=== PATIENT | female | born 1960 | race Caucasian/White ===

== ENCOUNTER 2016-05-17 14:48 | Emergency (ER) | payer OTHER ==
[~2016-05-17] VITALS: Ht 157.5 cm; Wt 59.1 kg
[~2016-05-17 14:48] MED LIST: ALBU8.5H3 INH; BENA20TA48 PO; CARI350T29 PO; TEMA30CA PO; TRAM50TA2 PO
[2016-05-17 14:58] VITALS: Ht 157.5 cm; Wt 59.1 kg
[2016-05-17] MEDS ORDERED: ONDANSETRON (ODT) 4 MG TAB ODT STA (15:19)
[2016-05-17] MEDS ORDERED: DIPHENHYDRAMINE 50 MG INJ IM ONE ×2 (15:30→16:30)
[2016-05-17] MEDS ORDERED: morphine 10 MG INJ IM ONE ×2 (15:30→16:30)
--- NOTE | 2016-05-17 16:17 | RADRPT ---
PROCEDURE: CT brain without contrast CLINICAL INDICATION: Headache, neck pain, stiffness TECHNIQUE: CT of the brain without contrast performed on a multidetector CT scanner, with multiplan ar reformats. One or more of the following dose reduction techniques were used: Automated exposure control, adjustment in mA and / or kV according to patient size, use of iterative reconstructive samuel hnique. CTDIvol = 45 mGy; DLP = 720.2 mGy-cm. COMPARISON: CT brain 03/02/2016 FINDINGS: There is now a small focal area of hypodensity in the inferior medial aspect of the left cerebellar hemisphere. This is suspicious for an acute - recent infarct. No acute intracranial hemorrhage is identified. No extra-axial fluid collection is seen. There is no mass effect. No midline shift is identified. Ventricles and sulci are mildly enlarged compatible with generalized volume loss. There are mild areas of hypodensity in the periventricular - deep white matter which are nonspecific but suggestive of chronic small vessel ischemic changes. Saravia-white differentiation is otherwise p reserved. Atherosclerotic calcifications of the proximal intracranial arteries are noted. Partial visualization is upper cervical posterior fusion hardware with lucency around the left C1 sc rew and lucency of the adjacent occipital calvarium bilaterally. Findings are not significantly neal nged. Mastoids and imaged paranasal sinuses are grossly clear. Focal dehiscence of the left lamina papyracea is seen. IMPRESSION: 1. Interval small focal hypodensity in the left cerebellar hemisphere, suspicious for acute/recent infarct. 2. No intracranial hemorrhage identified. 3. Mild generalized volume loss, with mild chronic small vessel ischemic changes. 4. Partially visualized upper posterior cervical fusion hardware with associated lucencies describe d above, not significantly changed. RPTAT: VV .Nilo Galloway MD, MD Date Time Electronically viewed and signed by .Nilo Galloway MD, MD on 05/17/2016 16:16 .O/
[2016-05-17] MEDS ORDERED: SOD CHLORIDE 0.9% 1,000 ML IV STA (16:42)
--- NOTE | 2016-05-17 17:21 | RADRPT ---
PROCEDURE: Chest Radiograph. CLINICAL INDICATION: Stroke TECHNIQUE: Single frontal chest radiograph. COMPARISON: Chest radiograph 10/04/2014 FINDINGS: The cardiomediastinal silhouette is within normal limits. No infiltrate or effusion is seen. Ce rvical spinal hardware is partially visualized. The bones are otherwise intact. IMPRESSION: 1. No evidence of acute cardiopulmonary disease RPTAT: HJBF .Alex Reeves MD, MD Date Time Electronically viewed and signed by .Alex Reeves MD, on 05/17/2016 17:21 .B/
[2016-05-17 17:27] LABS: BASOPHIL # 0.1 10^3/ul (0.0-0.1); BASOPHILS % 0.8 % (0.0-2.0); EOSINOPHILS # 0.2 10^3/ul (0.0-0.5); HEMATOCRIT 42.3 % (37.0-47.0); LYMPHOCYTES # 3.1 10^3/ul (0.8-2.9); LYMPHOCYTES % 32.5 % (15.0-51.0); MEAN CORPUSCULAR HEMOGLOBIN 29.5 pg (29.0-33.0); MEAN CORPUSCULAR HGB CONC 33.1 g/dl (32.0-37.0); MEAN CORPUSCULAR VOLUME 89.1 fl (82.0-101.0); MEAN PLATELET VOLUME 8.1 fl (7.4-10.4); MONOCYTE # 0.4 10^3/ul (0.3-0.9); MONOCYTES % 4.1 % (0.0-11.0); NEUTROPHIL # 5.8 10^3/ul (1.6-7.5); NEUTROPHILS % 60.6 % (39.0-77.0); PLATELET COUNT 280 10^3/UL (140-440); RED BLOOD COUNT 4.75 10^6/ul (4.20-5.40); RED CELL DISTRIBUTION WIDTH 15.6 % (11.5-14.5); UNCORRECTED WBC 9.6 10^3/ul (4.8-10.8); WHITE BLOOD COUNT 9.6 10^3/ul (4.8-10.8)
[2016-05-17 17:29] LABS: CONDITION 1; LH ANALYZER COMMENTS 1
[2016-05-17 17:44] LABS: CHLORIDE 102 mmol/L (97-110); SODIUM 144 mmol/L (135-144)
--- NOTE | 2016-05-17 17:44 | ERA ---
ER Documentation Chief Complaint Date/Time DATE: 05/17/16 TIME: 17:37 Chief Complaint headach and dizzy spellls x 1 wk HPI This is a 56-year-old female who states that been having some headaches off and on for the past week or yesterday she states she had a occipital headache described as throbbing with phonophobia and worse with position change. She says that she has been having some off and on spells of some strong vertigo is worse with movement of her head over the past 2 days as well. She said her right cheek feels a little tingly for the past 2 days as well. No weakness in her arms or legs and difficulty speaking or swallowing. Patient says she has had a prior stroke and is on blood thinners Plavix no chest pain shortness of breath no vomiting ROS All systems reviewed and are negative except as per history of present illness. Medications Home Meds Active Scripts Tramadol HCl (Tramadol HCl) 50 Mg Tablet, 50 MG PO Q6, #20 TAB Prov:SANYA MILLER DO 04/07/16 Reported Medications Albuterol Sulfate* (Proair HFA*) 8.5 Gm Hfa.aer.ad, 2 PUFF INH Q4H Y for WHEEZING AND SOB, #1 INHALER 03/02/16 Benazepril Hcl* (Benazepril Hcl*) 20 Mg Tablet, 20 MG PO DAILY, #30 TAB 03/02/16 Carisoprodol* (Carisoprodol*) 350 Mg Tablet, 350 MG PO Q8 Y for MUSCLE SPASMS, TAB 03/02/16 Temazepam* (Temazepam*) 30 Mg Capsule, 30 MG PO HS Y for INSOMNIA, CAP 03/02/16 Allergies Allergies: Coded Allergies: sulfamethoxazole (Verified Allergy, Intermediate, HIVES, 04/03/16) trimethoprim (Verified Allergy, Intermediate, HIVES, 04/03/16) hydromorphone HCl (Verified Allergy, Mild, 04/03/16) acetaminophen (Verified Allergy, Unknown, 04/03/16) amoxicillin (Verified Allergy, Unknown, 04/03/16) clavulanic acid (Verified Allergy, Unknown, 04/03/16) diphenhydramine (Verified Allergy, Unknown, 04/03/16) hydrocodone (Verified Allergy, Unknown, 04/03/16) ketorolac (Verified Allergy, Unknown, 04/03/16) PMhx/Soc History of Surgery: Yes (back, surgery , hysterctomy 99, left below the knee amputation.) Anesthesia Reaction: No (denies) Hx Neurological Disorder: Yes (CVA) Hx Respiratory Disorders: Yes (EMPHYSEMA/COPD) Hx Cardiac Disorders: Yes (HTN) Hx Psychiatric Problems: No Hx Miscellaneous Medical Probl: Yes (chronic back pain) Hx Alcohol Use: No Hx Substance Use: No Hx Tobacco Use: Yes (1 a day) Smoking Status: Current every day smoker FmHx Family History: No coronary disease Physical Exam Vitals Vital Signs Date Time Temp Pulse Resp B/P Pulse Ox O2 Delivery O2 Flow Rate FiO2 05/17/16 14:58 98.0 88 18 141/86 100 Physical Exam Const: Well-developed, well-nourished Head: Atraumatic, normocephalic Eyes: Normal Conjunctiva, PERRLA, EOMI, normal sclera, no nystagmus ENT: Normal External Ears, Nose and Mouth, moist mucus membranes. Neck: Full range of motion. No meningismus, no lymphadenopathy. Resp: Clear to auscultation bilaterally, no wheezing, rhonchi, rales Cardio: Regular rate and rhythm, no murmurs, S1 S2 present Abd: Soft, non tender x 4, non distended. Normal bowel sounds, no guarding or rebound, no pulsitile abdominal masses or bruits Skin: No petechiae or rashes, no ecchymosis , no maculopapular rash Back: No midline or flank tenderness Ext: No cyanosis, or edema, FROM x 4, normal inspection, neurovascularly intact x 4 Neur: Awake and alert, STR 5/5 x 4, sensation intact x 4, no focal findings, cerebellum intact Psych: Normal Mood and Affect Result Diagram: 05/17/16 1700 Results 24 hrs Laboratory Tests Test 05/17/16 17:00 Basophils # 0.110^3/ul Basophils % 0.8% Blood Morphology Comment Eosinophils # 0.210^3/ul Eosinophils % 2.0% Hematocrit 42.3% Hemoglobin 14.0g/dl Lymphocytes # 3.110^3/ul Lymphocytes % 32.5% Mean Corpuscular Hemoglobin 29.5pg Mean Corpuscular Hemoglobin Concent 33.1g/dl Mean Corpuscular Volume 89.1fl Mean Platelet Volume 8.1fl Monocytes # 0.410^3/ul Monocytes % 4.1% Neutrophils # 5.810^3/ul Neutrophils % 60.6% Nucleated Red Blood Cells # 0.010^3/ul Nucleated Red Blood Cells % 0.0/100WBC Platelet Count 16462^3/UL Red Blood Count 4.7510^6/ul Red Cell Distribution Width 15.6% White Blood Count 9.610^3/ul Current Medications Medications (Trade) Dose Ordered Sig/Migel Route PRN Reason Start Time Stop Time Status Last Admin Dose Admin Diphenhydramine HCl (Benadryl) 25 mg ONCE ONCE IM 05/17/16 15:30 05/17/16 15:31 DC 05/17/16 15:27 Morphine Sulfate (morphine) 6 mg ONCE ONCE IM 05/17/16 15:30 05/17/16 15:31 DC 05/17/16 15:29 Ondansetron HCl (Zofran Odt) 4 mg ONCE STAT ODT 05/17/16 15:19 05/17/16 15:22 DC 05/17/16 15:29 Morphine Sulfate (morphine) 6 mg ONCE ONCE IM 05/17/16 16:30 05/17/16 16:31 DC 05/17/16 16:31 Diphenhydramine HCl 25 mg 25 mg ONCE ONCE IM 05/17/16 16:30 05/17/16 16:31 DC 05/17/16 16:31 Sodium Chloride (NS) 1,000 ml @ 1,000 mls/hr Q1H STAT IV 05/17/16 16:42 05/17/16 17:41 Procedures/MDM PROCEDURE: CT brain without contrast CLINICAL INDICATION: Headache, neck pain, stiffness TECHNIQUE: CT of the brain without contrast performed on a multidetector CT scanner, with multiplanar reformats. One or more of the following dose reduction techniques were used: Automated exposure control, adjustment in mA and / or kV according to patient size, use of iterative reconstructive technique. CTDIvol = 45 mGy; DLP = 720.2 mGy-cm. COMPARISON: CT brain 03/02/2016 FINDINGS: There is now a small focal area of hypodensity in the inferior medial aspect of the left cerebellar hemisphere. This is suspicious for an acute - recent infarct. No acute intracranial hemorrhage is identified. No extra-axial fluid collection is seen. There is no mass effect. No midline shift is identified. Ventricles and sulci are mildly enlarged compatible with generalized volume loss. There are mild areas of hypodensity in the periventricular - deep white matter which are nonspecific but suggestive of chronic small vessel ischemic changes. Saravia-white differentiation is otherwise preserved. Atherosclerotic calcifications of the proximal intracranial arteries are noted. Partial visualization is upper cervical posterior fusion hardware with lucency around the left C1 screw and lucency of the adjacent occipital calvarium bilaterally. Findings are not significantly changed. Mastoids and imaged paranasal sinuses are grossly clear. Focal dehiscence of the left lamina papyracea is seen. IMPRESSION: 1. Interval small focal hypodensity in the left cerebellar hemisphere, suspicious for acute/recent infarct. 2. No intracranial hemorrhage identified. 3. Mild generalized volume loss, with mild chronic small vessel ischemic changes. 4. Partially visualized upper posterior cervical fusion hardware with associated lucencies described above, not significantly changed. RPTAT: VV .Nilo Galloway MD, Date Time Electronically viewed and signed by .Nilo Galloway MD, MD on 05/17/2016 16:16 .O/ CC: SANYA MILLER DO PROCEDURE: Chest Radiograph. CLINICAL INDICATION: Stroke TECHNIQUE: Single frontal chest radiograph. COMPARISON: Chest radiograph 10/04/2014 FINDINGS: The cardiomediastinal silhouette is within normal limits. No infiltrate or effusion is seen. Cervical spinal hardware is partially visualized. The bones are otherwise intact. IMPRESSION: 1. No evidence of acute cardiopulmonary disease RPTAT: HJBF .Alex Reeves MD, Date Time Electronically viewed and signed by .Alex Reeves MD, on 2016 17:21 .B/ CC: SANYA MILLER DO The patient's CAT scan shows a subacute/acute stroke. She is not a TPA candidate due to the onset of symptoms was in the minimum 2 days ago. She also has no real symptomatology other than a mild headache and some vertigo. However she will need to be admitted to the hospital for medication management and MRI Patient's neurologic symptoms are concerning for acute TIA/stroke, infectious, or metabolic cause and will require inpatient workup and continuous monitoring. Further w/u for will be deferred to the inpatient team. Neuro Critical Care: Critical Care Time: 30 minutes Treatments/Evaluations: Continuous neurologic and cardiovascular monitoring for deterioration of neurologic function and complications, while obtaining immediate neurologic imaging. Considerations made for TPA and invasive therapy with discussions with family. TPA Criteria Assessment: Patient is not a TPA candidate because: Onset at least 2 days ago Last known normal > 3 hours Time Onset Unkown Minimal or rapidly improving symptoms Bleeding Diathesis Ct shows > 1/[address] shows ICH BP >185/110 even with treatment Aggressive BP therapy required i.e. Nicardipine gtt Hyper or Hypoglycemia < 50 or > 400 mg/dl Seizure at onset Stroke or Head injury < 3 months LP < 24 hours Major Surgery < 14 days Brain Tumor, AVM, Aneurysm GI/ bleed < 21 days Arterial Puncture < 7 days Caution NIHSS > 22 For Symptoms 3-4.5 hrs Age > 80 NIHSS > 25 Any Anticoagulant Use History of CVA and DM Accepting Care Team: Current data and ongoing care discussed. Time: Time of admission Primary Provider: Panel Consulting: TONI Outstanding Data: none EKG: Rate/Rhythm: Sinus tachycardia heart rate 101 QRS, ST, QT: NORMAL [place], QRS, QT] Impression: NORMAL EKG Departure Diagnosis: Primary Impression: CVA (cerebral vascular accident) Qualified Code: I63.9 - Cerebrovascular accident (CVA), unspecified mechanism Condition: Stable SANYA MILLER DO May 17, 2016 17:44
[2016-05-17 17:45] LABS: POTASSIUM 5.2 mmol/L (3.5-5.1)
[2016-05-17 17:47] LABS: ANION GAP 20 (8-16); CARBON DIOXIDE 27 mmol/L (21-31); CREATININE 0.83 mg/dl (0.44-1.00)
[2016-05-17 17:48] LABS: BLOOD UREA NITROGEN 14 mg/dl (7-20); CALCIUM 9.9 mg/dl (8.4-10.2); GLUCOSE 100 mg/dl (70-220)
[2016-05-17 18:00] LABS: INR 0.94; PROTIME 12.6 Sec (12.2-14.2)
[2016-05-17 18:01] LABS: PARTIAL THROMBOPLASTIN TIME 31.1 Sec (25.0-35.0)
[2016-05-17] MEDS ORDERED: SOD CHLORIDE 0.9% 1,000 ML IV SCH (18:01)
[2016-05-17 18:05] LABS: TROPONIN-I < 0.010 ng/ml (0.00-0.12)
[2016-05-17] MEDS ORDERED: ONDANSETRON 4 MG INJ IV PRN (18:30)
[2016-05-17] MEDS ORDERED: DIAZEPAM 5 MG/ML SYG IV ONE (18:30)
[2016-05-17] MEDS ORDERED: ACETAMINOPHEN 325 MG TAB PO PRN (18:30)
[2016-05-17] MEDS ORDERED: LORAZEPAM 2 MG INJ IV ONE (20:00)
[2016-05-17] MEDS ORDERED: morphine 10 MG INJ IV ONE (20:30)
[2016-05-17 20:38] VITALS: BP 144/87; PULSE 62; RESP 16; TEMP 98
== END 2016-05-17 18:05 | disposition admitted as inpatient to this hospital (09) ==
LOC: E/R 14:48
DX: I63.9 Cerebral infarction, unspecified (principal)
CPT/HCPCS: 70450; 71010; 80048; 84484; 85025; 85610; 85730; 93005; 96372; J1200; J2060; J2270; J3360; J7030; Z7502; Z7610

== ENCOUNTER 2016-05-25 16:26 | Inpatient (IN) | payer OTHER ==
[~2016-05-25] VITALS: Ht 167.6 cm; Wt 59.1 kg
[~2016-05-25 16:26] MED LIST changes: -TRAM50TA2 PO; +ULT50 PO
[2016-05-25] MEDS ORDERED: SOD CHLORIDE 0.9% 1,000 ML IV STA (16:52)
--- NOTE | 2016-05-25 17:21 | RADRPT ---
PROCEDURE: XR Chest. CLINICAL INDICATION: Shortness of breath. TECHNIQUE: Single frontal view. COMPARISON: 05/17/2016. FINDINGS: There is bilateral interstitial pulmonary disease which may indicate pulmonary edema. The lungs are otherwise clear. The heart size is normal. There is no pleural effusion or pneumothorax. There has been prior cervical spine surgery with plate and multiple screws. IMPRESSION: 1. Bilateral interstitial disease which may indicate pulmonary edema. Clinical correlation advised . 2. Prior cervical spine surgery. 3. Otherwise normal chest radiograph. RPTAT: QQ .Raman Acevedo MD, MD Date Time Electronically viewed and signed by .Raman Acevedo MD, MD on 05/25/2016 17:21 .R/
[2016-05-25 17:22] LABS: BASOPHILS % 0.5 % (0.0-2.0); EOSINOPHILS # 0.2 10^3/ul (0.0-0.5); EOSINOPHILS % 3.2 % (0.0-7.0); HEMATOCRIT 38.6 % (37.0-47.0); HEMOGLOBIN 12.7 g/dl (12.0-16.0); LYMPHOCYTES % 49.1 % (15.0-51.0); MEAN CORPUSCULAR HEMOGLOBIN 29.1 pg (29.0-33.0); MEAN CORPUSCULAR HGB CONC 32.9 g/dl (32.0-37.0); MEAN CORPUSCULAR VOLUME 88.5 fl (82.0-101.0); MEAN PLATELET VOLUME 7.9 fl (7.4-10.4); MONOCYTE # 0.3 10^3/ul (0.3-0.9); NEUTROPHIL # 2.5 10^3/ul (1.6-7.5); NEUTROPHILS % 42.2 % (39.0-77.0); PLATELET COUNT 248 10^3/UL (140-440); RED BLOOD COUNT 4.37 10^6/ul (4.20-5.40); RED CELL DISTRIBUTION WIDTH 16.3 % (11.5-14.5)
[2016-05-25 17:24] LABS: CONDITION 1; LH ANALYZER COMMENTS 1
--- NOTE | 2016-05-25 17:26 | ERA ---
ER Documentation Chief Complaint Date/Time DATE: 05/25/16 TIME: 17:22 Chief Complaint headache and ringing in bilat ears [id number] HPI This is a 56-year-old female well-known to me seen by me on May 17 with a diagnosis of a new cerebellar infarct. Patient was transferred to an outside hospital where she says she left AGAINST MEDICAL ADVICE. She says over the past few days she is getting worse with worsening movement of the left arm and now the inability to swallow liquids and solids. She says she is feeling dizzy with vertigo off and on with chronic headaches. No nausea vomiting she says she is getting worse and is now unable to eat for the past few days. No chest pain or shortness of breath no fever abdominal pain vomiting or diarrhea ROS All systems reviewed and are negative except as per history of present illness. Medications Home Meds Active Scripts Tramadol HCl (Tramadol HCl) 50 Mg Tablet, 50 MG PO Q6, #20 TAB Prov:SANYA MILLER DO 04/07/16 Reported Medications Albuterol Sulfate* (Proair HFA*) 8.5 Gm Hfa.aer.ad, 2 PUFF INH Q4H Y for WHEEZING AND SOB, #1 INHALER 03/02/16 Benazepril Hcl* (Benazepril Hcl*) 20 Mg Tablet, 20 MG PO DAILY, #30 TAB 03/02/16 Carisoprodol* (Carisoprodol*) 350 Mg Tablet, 350 MG PO Q8 Y for MUSCLE SPASMS, TAB 03/02/16 Temazepam* (Temazepam*) 30 Mg Capsule, 30 MG PO HS Y for INSOMNIA, CAP 03/02/16 Allergies Allergies: Coded Allergies: sulfamethoxazole (Verified Allergy, Intermediate, HIVES, 05/25/16) trimethoprim (Verified Allergy, Intermediate, HIVES, 05/25/16) hydromorphone HCl (Verified Allergy, Mild, 05/25/16) acetaminophen (Verified Allergy, Unknown, 05/25/16) amoxicillin (Verified Allergy, Unknown, 05/25/16) clavulanic acid (Verified Allergy, Unknown, 05/25/16) diphenhydramine (Verified Allergy, Unknown, 05/25/16) hydrocodone (Verified Allergy, Unknown, 05/25/16) ketorolac (Verified Allergy, Unknown, 05/25/16) PMhx/Soc History of Surgery: Yes (back, surgery , hysterctomy 99, left below the knee amputation.) Anesthesia Reaction: No (denies) Hx Neurological Disorder: Yes (CVA) Hx Respiratory Disorders: Yes (EMPHYSEMA/COPD) Hx Cardiac Disorders: Yes (HTN) Hx Psychiatric Problems: No Hx Miscellaneous Medical Probl: Yes (chronic back pain) Hx Alcohol Use: No Hx Substance Use: No Hx Tobacco Use: Yes (1 a day) Smoking Status: Current every day smoker FmHx Family History: No coronary disease Physical Exam Vitals Vital Signs Date Time Temp Pulse Resp B/P Pulse Ox O2 Delivery O2 Flow Rate FiO2 05/25/16 17:35 82 20 134/80 99 Nasal Cannula 2.0 05/25/16 17:11 Nasal Cannula 2 05/25/16 16:34 98.3 83 14 130/85 94 05/25/16 16:34 98.2 68 18 142/87 98 Physical Exam Const: Well-developed, well-nourished Head: Atraumatic, normocephalic Eyes: Normal Conjunctiva, PERRLA, EOMI, normal sclera, no nystagmus ENT: Normal External Ears, Nose and Mouth, dry mucus membranes. Neck: Full range of motion. No meningismus, no lymphadenopathy. Resp: Clear to auscultation bilaterally, no wheezing, rhonchi, rales Cardio: Regular rate and rhythm, no murmurs, S1 S2 present Abd: Soft, non tender x 4, non distended. Normal bowel sounds, no guarding or rebound, no pulsitile abdominal masses or bruits Skin: No petechiae or rashes, no ecchymosis , no maculopapular rash Back: No midline or flank tenderness Ext: No cyanosis, or edema, FROM x 4, normal inspection, neurovascularly intact x 4, left BKA Neur: Awake and alert, STR 5/5 x 3, left upper extremity strength is 2- 3 out of 5, sensation intact x 4, no focal findings, cerebellum intact Psych: Normal Mood and Affect Result Diagram: 05/25/166 05/25/16 1716 Results 24 hrs Laboratory Tests Test 05/25/16 17:16 Activated Partial Thromboplast Time 28.8Sec Alanine Aminotransferase (ALT/SGPT) 22IU/L Albumin 3.8g/dl Albumin/Globulin Ratio 0.92 Alkaline Phosphatase 93IU/L Anion Gap 14 Aspartate Amino Transf (AST/SGOT) 21IU/L Basophils # 0.010^3/ul Basophils % 0.5% Blood Morphology Comment Blood Urea Nitrogen 13mg/dl Calcium Level 9.1mg/dl Carbon Dioxide Level 28mmol/L Chloride Level 105mmol/L Creatinine 0.75mg/dl Direct Bilirubin 0.00mg/dl Eosinophils # 0.210^3/ul Eosinophils % 3.2% Globulin 4.10g/dl Glucose Level 88mg/dl Hematocrit 38.6% Hemoglobin 12.7g/dl INR International Normalized Ratio 0.91 Indirect Bilirubin 0.0mg/dl Lymphocytes # 3.010^3/ul Lymphocytes % 49.1% Mean Corpuscular Hemoglobin 29.1pg Mean Corpuscular Hemoglobin Concent 32.9g/dl Mean Corpuscular Volume 88.5fl Mean Platelet Volume 7.9fl Monocytes # 0.310^3/ul Monocytes % 5.0% Neutrophils # 2.510^3/ul Neutrophils % 42.2% Nucleated Red Blood Cells # 0.010^3/ul Nucleated Red Blood Cells % 0.0/100WBC Platelet Count 31484^3/UL Potassium Level 4.1mmol/L Prothrombin Time 12.3Sec Prothrombin Time Ratio 1.0 Red Blood Count 4.3710^6/ul Red Cell Distribution Width 16.3% Sodium Level 143mmol/L Total Bilirubin 0.0mg/dl Total Protein 7.9g/dl Troponin I < 0.012ng/ml White Blood Count 6.010^3/ul Current Medications Medications (Trade) Dose Ordered Sig/Migel Route PRN Reason Start Time Stop Time Status Last Admin Dose Admin Sodium Chloride (NS) 1,000 ml @ 1,000 mls/hr Q1H STAT IV 05/25/16 16:52 05/25/16 17:51 DC 05/25/16 17:10 Procedures/MDM EKG: Rate/Rhythm: Normal Sinus Rhythm,NL intervals QRS, ST, QT: NORMAL MT, QRS, QT] Impression: NORMAL EKG PROCEDURE: XR Chest. CLINICAL INDICATION: Shortness of breath. TECHNIQUE: Single frontal view. COMPARISON: 05/17/2016. FINDINGS: There is bilateral interstitial pulmonary disease which may indicate pulmonary edema. The lungs are otherwise clear. The heart size is normal. There is no pleural effusion or pneumothorax. There has been prior cervical spine surgery with plate and multiple screws. IMPRESSION: 1. Bilateral interstitial disease which may indicate pulmonary edema. Clinical correlation advised. 2. Prior cervical spine surgery. 3. Otherwise normal chest radiograph. RPTAT: QQ .Raman Acevedo MD, MD Date Time Electronically viewed and signed by .Raman Acevedo MD, MD on 05/25/2016 17:21 .R/ CC: SANYA MILLER DO PROCEDURE: CT Brain without contrast. CLINICAL INDICATION: Altered mental status, nonacute stroke TECHNIQUE: Routine CT scan of the brain was performed on a high resolution multi detector scanner without intravenous contrast. One or more of the following dose reduction techniques were used: Automated exposure control; Adjustment of the mA and/or kV according to patient size; Use of iterative reconstruction technique. CTDI = 45 mGy. DLP = 720 mGy-cm. COMPARISON: CT brain 05/17/2016 FINDINGS: Hemorrhage: No evidence of intracranial hemorrhage. Acute ischemic changes: No evidence of acute ischemic changes. Mass effect/Midline shift: None. Parenchymal volume: Within normal limits for age. Ventricular system: Concordant with parenchymal volume. Chronic changes: Mild chronic-appearing microvascular ischemic changes of the supratentorial white matter. Small focal area of encephalomalacia involving the caudal margin of the left cerebellar hemisphere. Atherosclerotic calcifications of the cavernous portions of both internal carotid arteries are present. Extracranial soft tissues: Unremarkable. Calvarium: No fractures. Partial visualization of upper cervical fusion hardware. Paranasal sinuses: Visualized paranasal sinuses are clear. Mastoid air cells: Visualized mastoid air cells are clear. IMPRESSION: No acute intracranial abnormalities. Mild chronic-appearing microvascular ischemic changes of the supratentorial white matter. Small area of encephalomalacia involving the caudal aspect of the left cerebellar hemisphere compatible with evolution of the previously seen small infarct. MRI of the brain may be useful for further evaluation. RPTAT: AADD .Jonathan Wyman MD, MD Date Time Electronically viewed and signed by .Jonathan Wyman MD, on 05/25/2016 17:34 .B/ CC: SANYA MILLER DO The patient's condition is worsening. I will admit her to the hospital/ transfer. She is quite weak and cannot swallow liquids or solids will likely need to receive a feeding tube and needs a swallowing study formally. She says she regrets leaving AGAINST MEDICAL ADVICE because her condition is now worsened and is saying she will stay in the hospital. Departure Diagnosis: Primary Impression: CVA (cerebral vascular accident) Qualified Code: I63.9 - Cerebrovascular accident (CVA), unspecified mechanism Additional Impression: Dysphagia Qualified Code: R13.10 - Dysphagia, unspecified type Condition: Stable SANYA MILLER DO May 25, 2016 17:26
[2016-05-25 17:29] LABS: ALBUMIN 3.8 g/dl (3.3-4.9)
[2016-05-25 17:30] LABS: CHLORIDE 105 mmol/L (97-110); POTASSIUM 4.1 mmol/L (3.5-5.1); SODIUM 143 mmol/L (135-144)
[2016-05-25 17:31] LABS: INR 0.91; PROTIME 12.3 Sec (12.2-14.2)
[2016-05-25 17:32] LABS: ALBUMIN/GLOBULIN RATIO 0.92; ANION GAP 14 (8-16); ASPARTATE AMINO TRANSFERASE 21 IU/L (15-46); CARBON DIOXIDE 28 mmol/L (21-31); CREATININE 0.75 mg/dl (0.44-1.00); PARTIAL THROMBOPLASTIN TIME 28.8 Sec (25.0-35.0); TOTAL PROTEIN 7.9 g/dl (6.1-8.1)
[2016-05-25 17:33] LABS: ALANINE AMINOTRANSFERASE 22 IU/L (13-69); ALKALINE PHOSPHATASE 93 IU/L (42-121); BLOOD UREA NITROGEN 13 mg/dl (7-20); CALCIUM 9.1 mg/dl (8.4-10.2); GLUCOSE 88 mg/dl (70-220)
--- NOTE | 2016-05-25 17:35 | RADRPT ---
PROCEDURE: CT Brain without contrast. CLINICAL INDICATION: Altered mental status, nonacute stroke TECHNIQUE: Routine CT scan of the brain was performed on a high resolution multi detector scanner without intravenous contrast. One or more of the following dose reduction techniques were used: Auto mated exposure control; Adjustment of the mA and/or kV according to patient size; Use of iterative r econstruction technique. CTDI = 45 mGy. DLP = 720 mGy-cm. COMPARISON: CT brain 05/17/2016 FINDINGS: Hemorrhage: No evidence of intracranial hemorrhage. Acute ischemic changes: No evidence of acute ischemic changes. Mass effect/Midline shift: None. Parenchymal volume: Within normal limits for age. Ventricular system: Concordant with parenchymal volume. Chronic changes: Mild chronic-appearing microvascular ischemic changes of the supratentorial white m atter. Small focal area of encephalomalacia involving the caudal margin of the left cerebellar hemis phere. Atherosclerotic calcifications of the cavernous portions of both internal carotid arteries a re present. Extracranial soft tissues: Unremarkable. Calvarium: No fractures. Partial visualization of upper cervical fusion hardware. Paranasal sinuses: Visualized paranasal sinuses are clear. Mastoid air cells: Visualized mastoid air cells are clear. IMPRESSION: No acute intracranial abnormalities. Mild chronic-appearing microvascular ischemic changes of the supratentorial white matter. Small area of encephalomalacia involving the caudal aspect of the left cerebellar hemisphere compatible with e volution of the previously seen small infarct. MRI of the brain may be useful for further evaluation. RPTAT: AADD .Jonathan Wyman MD, MD Date Time Electronically viewed and signed by .Jonathan Wyman MD, on 05/25/2016 17:34 .B/
[2016-05-25 17:47] LABS: TROPONIN-I < 0.012 ng/ml (0.00-0.12)
[2016-05-25] MEDS ORDERED: morphine 10 MG INJ IV ONE (19:00)
[2016-05-25] MEDS ORDERED: DIPHENHYDRAMINE 50 MG INJ IV ONE (19:00)
[2016-05-25] MEDS ORDERED: SOD CHLORIDE 0.9% 1,000 ML IV SCH (19:13)
[2016-05-25] MEDS ORDERED: NA PHOSPHATE/BIPHOS 133 ML ENEMA PR PRN (19:30)
[2016-05-25] MEDS ORDERED: hydrALAzine 20 MG INJ IV PRN (19:30)
[2016-05-25] MEDS ORDERED: NITROGLYCERIN (SL) 0.4 MG TAB SL PRN (19:30)
[2016-05-25] MEDS ORDERED: ALBUTEROL/IPRATROPIUM (NEB) 3 ML AMP HHN PRN (19:30)
[2016-05-25] MEDS ORDERED: ACETAMINOPHEN 325 MG TAB PO PRN ×2 (19:30)
[2016-05-25] MEDS ORDERED: ONDANSETRON 4 MG INJ IV PRN ×2 (19:30)
[2016-05-25] MEDS ORDERED: NACL 0.9% 3 ML SYG IV SCH (19:30)
[2016-05-25] MEDS ORDERED: HYDROCODONE/APAP (5/325) TAB PO PRN (19:30)
[2016-05-25] MEDS ORDERED: MAGNESIUM HYDROXIDE 30ML CUP PO PRN (19:30)
[2016-05-25] MEDS ORDERED: DOCUSATE SODIUM 100 MG CAP PO PRN (19:30)
[2016-05-25 19:42] LABS: ADD UMIC NO; URINE BILIRUBIN (Dip) NEGATIVE (NEGATIVE); URINE BLOOD (Dip) NEGATIVE (NEGATIVE); URINE COLOR LT. YELLOW (YELLOW); URINE GLUCOSE (Dip) NEGATIVE (NEGATIVE); URINE KETONES (Dip) NEGATIVE (NEGATIVE); URINE LEUKOCYTE ESTERASE (Dip) NEGATIVE (NEGATIVE); URINE NITRITE (Dip) NEGATIVE (NEGATIVE); URINE TOTAL PROTEIN (Dip) NEGATIVE (NEGATIVE); URINE UROBILINOGEN (Dip) 0.2 E.U./dL (0.1-1.0)
--- NOTE | 2016-05-25 19:56 | RADRPT ---
PROCEDURE: US Carotid. CLINICAL INDICATION: Focal cerebral ischemic attack. TECHNIQUE: Multiple sonographic of the carotid arteries were obtained utilizing jennings scale, Color Doppler, and spectral imaging. COMPARISON: None. FINDINGS: Location Right Left CCA 79 cm/sec 53 cm/sec Prox ICA 33 cm/sec 36 cm/sec Mid ICA 35 cm/sec 45 cm/sec Dist ICA 70 cm/sec 42 cm/sec ICA/CCA 1.6 0.9 Antegrade flow is seen within the vertebral arteries bilaterally. No significant plaque is seen within the carotid system bilaterally. No hemodynamically significant stenosis or occlusion is identified. IMPRESSION: 1. No evidence of a hemodynamically significant stenosis or occlusion. RPTAT: HEKC .Nick De Leon MD, MD Date Time Electronically viewed and signed by .Nick De Leon MD, on 05/25/2016 19:56 .C/
[2016-05-25 21:06] VITALS: PULSE 83
[2016-05-25] MEDS: morphine 2 MG INJ IV PRN (21:21)
[2016-05-25] MEDS: LORAZEPAM 2 MG INJ IV PRN (21:47)
[2016-05-25] MEDS: SOD CHLORIDE 0.45% 1,000 ML IV SCH (23:00)
[2016-05-25 23:23] VITALS: BP 125/88; RESP 16
[2016-05-25] MEDS ORDERED: SUMATRIPTAN 6 MG/0.5 ML INJ SC ONE (23:30)
[2016-05-26] VITALS (8 sets, daily range): BP systolic 117–159; BP diastolic 73–108; PULSE 81–103; RESP 16; Ht 167.6 cm; Wt 59.1 kg
[2016-05-26] MEDS: morphine 2 MG INJ IV PRN ×3 (03:12→13:17)
[2016-05-26] MEDS: LORAZEPAM 2 MG INJ IV PRN ×2 (04:57→11:21)
[2016-05-26] MEDS ORDERED: PANTOPRAZOLE 40 MG INJ IV SCH (06:00)
[2016-05-26] MEDS ORDERED: DIPHENHYDRAMINE 50 MG INJ IV PRN (07:00)
[2016-05-26 07:02] LABS: THYROID STIMULATING HORMONE 3.5 MIU/L (0.465-4.680)
[2016-05-26] MEDS ORDERED: ASPIRIN (EC) 325 MG TAB PO SCH (09:00)
[2016-05-26] MEDS ORDERED: BENAZEPRIL 20 MG TAB PO SCH (09:00)
--- NOTE | 2016-05-26 09:27 | HP ---
DATE OF ADMISSION: 05/25/2016 TIME SEEN: 2300 CHIEF COMPLAINT: Headache. HISTORY OF PRESENT ILLNESS: The patient is a 56-year-old female with a history of hypertension, CVA , COPD, and a history of herniated disk, back surgery who presented to the emergency department with a headache and ringing sensation in her ears. The patient was actually seen a week ago here in the ER after she presented with headache and dizziness. At that time, CT of the brain showed acute inf arct in the left cerebral hemisphere. The patient, however, left against medical advice from the ER . Since then she said upper extremity movements have been progressively getting worse and also repo rted dysphagia to liquids and solids. A repeat CT of the head showed a small area of encephalomalac ia involving the caudal aspect of the left cerebral hemisphere compatible with evolution of the prev iously seen small infarct. Also noted was chronic-appearing microvascular ischemic change. The pat ient was given morphine, Benadryl, and a liter of normal saline while she was in the ER. As far as her dysphagia is concerned, she said it is to solids and liquids, but looking at her records from re and from previous admissions, in 2011 she did report dysphagia and she was actually seen by Dr. Karli nieto from GI, but no EGD was done, it seems like her symptoms got better with Reglan and a PPI. Cu rrently, she denies any chest pain, shortness of breath, nausea, vomiting, fever, or chills. REVIEW OF SYSTEMS: A 12-point review of systems was performed and negative except as mentioned in t he HPI. PAST MEDICAL HISTORY: As per HPI. PAST SURGICAL HISTORY: Left below-knee amputation, back surgery, hysterectomy. ALLERGIES: 1. ACETAMINOPHEN. 2. AMOXICILLIN. 3. CLAVULANIC ACID. 4. HYDROCODONE. 5. HYDROMORPHONE. 6. TORADOL. 7. SULFAMETHOXAZOLE. 8. TRIMETHOPRIM. HOME MEDICATIONS: 1. Albuterol. 2. Soma. 3. Benazepril 4. Temazepam. 5. Tramadol. PHYSICAL EXAMINATION: VITAL SIGNS: Stable. GENERAL: No acute distress, answering questions appropriately. HEENT: No obvious head deformity. Pupils are reactive to light. Extraocular muscles intact. CARDIOVASCULAR: Regular rate and rhythm. No extra sounds. LUNGS: Clear. No wheezes or rhonchi. ABDOMEN: Soft, nontender, nondistended. Positive bowel sounds. EXTREMITIES: No edema. NEUROLOGIC: Left upper extremity weakness noted, probably with a strength of 3/5. Right upper extr emity and bilateral lower extremity strength is intact. Slight decreased sensation on her left uppe r extremity to light touch. LABORATORY DATA: CBC and CMP are unremarkable. IMAGING: Brain CT with results as mentioned in the HPI. Chest x-ray shows bilateral interstitial d isease which may indicate pulmonary edema Carotid Doppler ultrasound shows no evidence of hemodynami elvis significant stenosis or occlusion. IMPRESSION: 1. Subacute cerebrovascular accident. 2. Dysphagia. 3. History of hypertension. 4. History of chronic obstructive pulmonary disease. 5. History of cerebrovascular accident. 6. Coronary back pain. PLAN: Continue telemetry monitoring. She will be placed on statin, aspirin. We will obtain MRI of the brain. Carotid Doppler ultrasound was done which showed no evidence of hemodynamically signifi cant stenosis. Will check a fasting lipid panel and A1c in the morning. She will have a formal swa llow evaluation and will also be evaluated by physical therapist. Depending on the clinical course, a GI consultation will be placed for her dysphagia. Of note, as mentioned in the HPI, the patient was admitted here in 2011, and at that time she did mention having had dysphagia for which she was s een by Dr. Simpson from gastroenterology. It seems like at that time she was managed with Reglan and a PPI, and no EGD was done. For deep venous thrombosis prophylaxis, she will be placed on subcutaneous heparin. A neurology consult will be placed to address her recent CVA. Further workup and management per clinical course. Dictated By: WHITNEY LA/ELISE Conf#: [id number] DID#: [id number]
--- NOTE | 2016-05-26 10:56 | CONS ---
Date/Time of Note Date/Time of Note DATE: 05/26/16 TIME: 10:44 Assessment/Plan Assessment/Plan Chief Complaint/Hosp Course Dysphagia, Headache Problems: Additional Assessment/Plan 56-year-old female with a history of hypertension, CVA, COPD, herniated disk s/ p back surgery with chronic back pain admitted with headache and ringing sensation in her ears and left sided weakness. A repeat CT of the head showed a small area of encephalomalacia involving the caudal aspect of the left cerebral hemisphere compatible with evolution of the previously seen small infarct, chronic-appearing microvascular ischemic change. MRI of brain has been ordered. PLAN: 1. MRI of brain 2. MRA of head and neck 3. Continue Aspirin 4. Start Lovastatin 40 mg po qhs 5. Speech/ OT/PT evaluation and treatment 6. Will follow Consultation Date/Type/Reason Admit Date/Time May 25, 2016 at 19:14 Date of Consultation: May 26, 2016 Type of Consultation: neurology Reason for Consultation Left sided weakness and dysphagia Hx of Present Illness 56-year-old female with a history of hypertension, CVA, COPD, herniated disk s/ p back surgery with chronic back pain presented to the emergency department with a headache and ringing sensation in her ears. The patient was actually seen a week ago here in the ER after she presented with headache and dizziness. At that time, CT of the brain showed acute infarct in the left cerebral hemisphere. The patient, however, left against medical advice from the ER. Since then she said left upper extremity movements have been progressively getting worse and also reported dysphagia to liquids and solids. A repeat CT of the head showed a small area of encephalomalacia involving the caudal aspect of the left cerebral hemisphere compatible with evolution of the previously seen small infarct, chronic-appearing microvascular ischemic change. MRI of brain has been ordered. Constitutional: other (Headache) Eyes: no complaints ENT: no complaints Respiratory: no complaints Cardiovascular: no complaints Gastrointestinal: no complaints Genitourinary: no complaints Musculoskeletal: other (left sided weakness) Skin: no complaints Neurologic: focal-weakness, other (swallowing problems) Endocrine: no complaints Lymphatic: no complaints Psychological: other (asking narcotic medications) Immunologic: no complaints Past Surgical History Past Surgical Hx: other (Left BKA) Family History Significant Family History: no pertinent family hx Social History Smoking Status: Smoker,current status unk Exam/Review of Systems Vital Signs Vitals Vital Signs Date Time Temp Pulse Resp B/P Pulse Ox O2 Delivery O2 Flow Rate FiO2 05/26/16 08:04 103 05/26/16 07:49 97.9 16 159/108 90 05/25/16 20:02 Room Air 05/25/16 17:35 2.0 Intake and Output 05/25/16 05/25/16 05/26/16 15:00 23:00 07:00 Intake Total 0 ml Output Total 1000 ml Balance -1000 ml Exam Constitutional: alert, oriented, well developed Psych: nl mood/affect, no complaints Head: atraumatic, normocephalic Eyes: EOMI, nl conjunctiva, nl lids, nl sclera ENMT: mucosa pink and moist, nl external ears & nose, nl lips & teeth, nl nasal mucosa & septum Neck: non-tender, supple Respiratory: clear to auscultation, normal air movement Cardiovascular: nl pulses, regular rate and rhythm Gastrointestinal: nl liver, spleen, non-tender, soft Neurological: RV REPAIRER II-XII intact, focal weakness, nl mental status, nl speech, other (Left hemiparesis, left BKA) Skin: nl turgor Lymph: nl lymph nodes Results Result Diagram: 05/25/16 1716 05/25/16 1716 Results 24 hrs Laboratory Tests Test 05/25/16 17:16 05/25/16 19:22 05/26/16 05:30 Activated Partial Thromboplast Time 28.8 Alanine Aminotransferase (ALT/SGPT) 22 Albumin 3.8 Albumin/Globulin Ratio 0.92 Alkaline Phosphatase 93 Anion Gap 14 Aspartate Amino Transf (AST/SGOT) 21 Basophils # 0.0 Basophils % 0.5 Blood Morphology Comment Blood Urea Nitrogen 13 Calcium Level 9.1 Carbon Dioxide Level 28 Chloride Level 105 Creatinine 0.75 Direct Bilirubin 0.00 Eosinophils # 0.2 Eosinophils % 3.2 Free Thyroxine 1.18 Globulin 4.10 H Glucose Level 88 Hematocrit 38.6 Hemoglobin 12.7 INR International Normalized Ratio 0.91 Indirect Bilirubin 0.0 Lymphocytes # 3.0 H Lymphocytes % 49.1 Mean Corpuscular Hemoglobin 29.1 Mean Corpuscular Hemoglobin Concent 32.9 Mean Corpuscular Volume 88.5 Mean Platelet Volume 7.9 Monocytes # 0.3 Monocytes % 5.0 Neutrophils # 2.5 Neutrophils % 42.2 Nucleated Red Blood Cells # 0.0 Nucleated Red Blood Cells % 0.0 Platelet Count 248 Potassium Level 4.1 Prothrombin Time 12.3 Prothrombin Time Ratio 1.0 Red Blood Count 4.37 Red Cell Distribution Width 16.3 H Sodium Level 143 Total Bilirubin 0.0 L Total Protein 7.9 Troponin I < 0.012 White Blood Count 6.0 # Urine Bilirubin NEGATIVE Urine Clarity CLEAR Urine Color LT. YELLOW Urine Glucose NEGATIVE Urine Hemoglobin NEGATIVE Urine Ketones NEGATIVE Urine Leukocyte Esterase NEGATIVE Urine Nitrite NEGATIVE Urine Specific [place] 1.015 Urine Total Protein NEGATIVE Urine Urobilinogen 0.2 E.U./dL Urine pH 6.0 Cholesterol Level 190 Cholesterol/HDL Ratio 7.0 HDL Cholesterol 27 L LDL Cholesterol, Calculated 110 Thyroid Stimulating Hormone (TSH) 3.500 Triglycerides Level 265 H Medications Medications Current Medications Ondansetron HCl (Zofran Inj) 4 mg Q6H PRN IV NAUSEA AND/OR VOMITING; Start at 19:30 Acetaminophen (Tylenol Tab) 650 mg Q6H PRN PO PAIN LEVEL 1-3 OR FEVER; Start at 19:30 Morphine Sulfate (morphine) 2 mg Q4H PRN IV SEVERE PAIN LEVEL 7-10 Last administered on 05/26/16 08:00; Admin Dose 2 MG; Start 05/25/16 at 19:30 Docusate Sodium (Colace) 100 mg Q12H PRN PO CONSTIPATION; Start 05/25/16 at 19: 30 Magnesium Hydroxide (Milk Of Mag) 30 ml DAILY PRN PO CONSTIPATION; Start at 19:30 Sodium Biphosphate/ Sodium Phosphate (Fleet Enema) 133 ml DAILY PRN [place] CONSTIPATION; Start 05/25/16 at 19:30 Pantoprazole 40 mg 40 mg DAILY@06 IV ; Start 05/26/16 at 06:00 Sodium Chloride (1/2 NS) 1,000 ml @ 75 mls/hr [id number] IV ; Start 05/25/16 at 23 :00 Lorazepam (Ativan) 0.5 mg Q6H PRN IV ANXIETY Last administered on 05/26/16 04: 57; Admin Dose 0.5 MG; Start 05/25/16 at 19:30 Hydralazine HCl (Apresoline) 10 mg Q6H PRN IV ELEVATED BLOOD PRESSURE; Start at 19:30 Clonidine (Catapres) 0.1 mg Q6H PRN PO ELEVATED BLOOD PRESSURE; Start 05/25/16 at 19:30 Nitroglycerin (Nitroglycerin (Sl Tab) 0.4 Mg) 1 tab Q5M PRN SL ANGINA; Start at 19:30 Aspirin (Ecotrin) 325 mg DAILY PO ; Start 05/26/16 at 09:00 Benazepril HCl (Lotensin) 20 mg DAILY PO ; Start 05/26/16 at 09:00 Diphenhydramine HCl (Benadryl) 25 mg Q6H PRN IV ITCHING Last administered on t 08:17; Admin Dose 25 MG; Start 05/26/16 at 07:[address] brain IMPRESSION: No acute intracranial abnormalities. Mild chronic-appearing microvascular ischemic changes of the supratentorial white matter. Small area of encephalomalacia involving the caudal aspect of the left cerebellar hemisphere compatible with evolution of the previously seen small infarct. MRI of the brain may be useful for further evaluation. RPTAT: AADD .Jonathan Wyman MD, MD Date Time Electronically viewed and signed by .Jonathan Wyman MD, MD on 05/25/2016 17:34 JENNIE SYLVESTER MD May 26, 2016 10:55
[2016-05-26] MEDS: SOD CHLORIDE 0.45% 1,000 ML IV SCH (11:57)
[2016-05-26] MEDS ORDERED: HEPARIN 5,000 UNIT/0.5 ML SYG SC SCH (13:00)
--- NOTE | 2016-05-26 13:01 | PN ---
Date/Time of Note Date/Time of Note DATE: 05/26/16 TIME: 12:51 Assessment/Plan VTE Prophylaxis VTE Prophylaxis Intervention: heparin Lines/Catheters IV Catheter Type (from Nrs): Peripheral IV Urinary Cath still in place: Yes Reason Cath still needed: other (indicate) Assessment/Plan Assessment/Plan 1. Subacute cerebrovascular accident, PT/OT. neurology consult 2. Dysphagia.speech evaluation 3. Hypertension.controlled 4. Chronic obstructive pulmonary disease. stable 5. Headache, painmanagement 6. DVT prophylaxis: heparin Subjective 24 Hr Interval Summary Free Text/Dictation headache on back of the head Exam/Review of Systems Vital Signs Vitals Vital Signs Date Time Temp Pulse Resp B/P Pulse Ox O2 Delivery O2 Flow Rate FiO2 05/26/16 12:33 103 05/26/16 11:49 98.4 16 132/85 92 05/25/16 20:02 Room Air 05/25/16 17:35 2.0 Intake and Output 05/25/16 05/25/16 05/26/16 15:00 23:00 07:00 Intake Total 0 ml Output Total 1000 ml Balance -1000 ml Exam Constitutional: alert, oriented, well developed Head: atraumatic, normocephalic Eyes: EOMI, PERRL, nl conjunctiva, nl lids, nl sclera ENMT: mucosa pink and moist, nl external ears & nose, nl lips & teeth, nl nasal mucosa & septum Neck: non-tender, supple Respiratory: clear to auscultation, normal air movement, No congested cough, No crackles/rales, No diminished breath sounds, No intercostal retraction, No labored breathing, No respirations, No tactile fremitus, No wheezing Cardiovascular: nl pulses, regular rate and rhythm, No S3, No S4, No bruits, No diastolic murmur, No edema, No gallop, No irregular rhythm, No jugular venous distention (JVD), No murmurs/extra sounds, No rub, No systolic murmur Gastrointestinal: nl liver, spleen, non-tender, soft, No ascites, No bowel sounds, No distended, No firm, No hepatomegaly, No mass , No rebound or guarding, No splenomegaly, No surgical scars, No tender Musculoskeletal: nl extremities to inspection Extremities: normal pulses, other (s/p left BKA), No calf tenderness, No clubbing, No cyanosis, No edema, No palpable cord, No pitting pedal edema, No tenderness Neurological: ALL AROUND PRESSER II-XII intact (except slurring speech), nl mental status Skin: nl turgor, rash or lesions Lymph: nl lymph nodes Results Result Diagram: 05/25/16 1716 05/25/16 1716 Results 24 hrs Laboratory Tests Test 05/25/16 17:16 05/25/16 19:22 05/26/16 05:30 Activated Partial Thromboplast Time 28.8 Alanine Aminotransferase (ALT/SGPT) 22 Albumin 3.8 Albumin/Globulin Ratio 0.92 Alkaline Phosphatase 93 Anion Gap 14 Aspartate Amino Transf (AST/SGOT) 21 Basophils # 0.0 Basophils % 0.5 Blood Morphology Comment Blood Urea Nitrogen 13 Calcium Level 9.1 Carbon Dioxide Level 28 Chloride Level 105 Creatinine 0.75 Direct Bilirubin 0.00 Eosinophils # 0.2 Eosinophils % 3.2 Free Thyroxine 1.18 Globulin 4.10 H Glucose Level 88 Hematocrit 38.6 Hemoglobin 12.7 INR International Normalized Ratio 0.91 Indirect Bilirubin 0.0 Lymphocytes # 3.0 H Lymphocytes % 49.1 Mean Corpuscular Hemoglobin 29.1 Mean Corpuscular Hemoglobin Concent 32.9 Mean Corpuscular Volume 88.5 Mean Platelet Volume 7.9 Monocytes # 0.3 Monocytes % 5.0 Neutrophils # 2.5 Neutrophils % 42.2 Nucleated Red Blood Cells # 0.0 Nucleated Red Blood Cells % 0.0 Platelet Count 248 Potassium Level 4.1 Prothrombin Time 12.3 Prothrombin Time Ratio 1.0 Red Blood Count 4.37 Red Cell Distribution Width 16.3 H Sodium Level 143 Total Bilirubin 0.0 L Total Protein 7.9 Troponin I < 0.012 White Blood Count 6.0 # Urine Bilirubin NEGATIVE Urine Clarity CLEAR Urine Color LT. YELLOW Urine Glucose NEGATIVE Urine Hemoglobin NEGATIVE Urine Ketones NEGATIVE Urine Leukocyte Esterase NEGATIVE Urine Nitrite NEGATIVE Urine Specific [place] 1.015 Urine Total Protein NEGATIVE Urine Urobilinogen 0.2 E.U./dL Urine pH 6.0 Cholesterol Level 190 Cholesterol/HDL Ratio 7.0 HDL Cholesterol 27 L LDL Cholesterol, Calculated 110 Thyroid Stimulating Hormone (TSH) 3.500 Triglycerides Level 265 H Medications Medications Current Medications Ondansetron HCl (Zofran Inj) 4 mg Q6H PRN IV NAUSEA AND/OR VOMITING; Start at 19:30 Acetaminophen (Tylenol Tab) 650 mg Q6H PRN PO PAIN LEVEL 1-3 OR FEVER; Start at 19:30 Morphine Sulfate (morphine) 2 mg Q4H PRN IV SEVERE PAIN LEVEL 7-10 Last administered on 05/26/16 08:00; Admin Dose 2 MG; Start 05/25/16 at 19:30 Docusate Sodium (Colace) 100 mg Q12H PRN PO CONSTIPATION; Start 05/25/16 at 19: 30 Magnesium Hydroxide (Milk Of Mag) 30 ml DAILY PRN PO CONSTIPATION; Start at 19:30 Sodium Biphosphate/ Sodium Phosphate (Fleet Enema) 133 ml DAILY PRN [place] CONSTIPATION; Start 05/25/16 at 19:30 Pantoprazole 40 mg 40 mg DAILY@06 IV ; Start 05/26/16 at 06:00 Sodium Chloride (1/2 NS) 1,000 ml @ 75 mls/hr [id number] IV Last administered on 05/26/16 11:57; Admin Dose 75 MLS/HR; Start 05/25/16 at 23:00 Lorazepam (Ativan) 0.5 mg Q6H PRN IV ANXIETY Last administered on 05/26/16 11: 21; Admin Dose 0.5 MG; Start 05/25/16 at 19:30 Hydralazine HCl (Apresoline) 10 mg Q6H PRN IV ELEVATED BLOOD PRESSURE; Start at 19:30 Clonidine (Catapres) 0.1 mg Q6H PRN PO ELEVATED BLOOD PRESSURE; Start 05/25/16 at 19:30 Nitroglycerin (Nitroglycerin (Sl Tab) 0.4 Mg) 1 tab Q5M PRN SL ANGINA; Start at 19:30 Aspirin (Ecotrin) 325 mg DAILY PO ; Start 05/26/16 at 09:00 Benazepril HCl (Lotensin) 20 mg DAILY PO ; Start 05/26/16 at 09:00 Diphenhydramine HCl (Benadryl) 25 mg Q6H PRN IV ITCHING Last administered on 08:17; Admin Dose 25 MG; Start 05/26/16 at 07:00 Atorvastatin Calcium (Lipitor) 40 mg HS PO ; Start 05/26/16 at 21:00 GUERRERO JONES MD May 26, 2016 13:01
--- NOTE | 2016-05-26 14:43 | RADRPT ---
Echocardiogram Report Patient Name: JESSICA MIDDLETON Gender: Female Date: 1960 Study Date: 26-May-2016 Access Registrar: Michael Sparks [facility] Location: [facility] [place] Ref. Physician: APOLONIA GOMEZ Quality: Good Procedures: Transthoracic echocardiogram with complete 2D, M-Mode, and doppler examination. Indications: Chest Pain. 2D/M Mode Doppler Measurement Value Normal Ranges Measurement Value Normal Ranges LVIDd 2D 4.9 3.5 - 5.6 cm AV Peak Luis 1.3 m/sec LVIDs 2D 4.3 2.1 - 4.1 cm AV Peak PG 6.5 mmHg LVPWd 2D 0.9 0.6 - 1.1 cm AI Peak PG 24.5 mmHg IVSd 2D 1.0 0.6 - 1.1 cm AI Peak Luis 2.5 m/sec AoR Diam 2D 3.2 2.0 - 3.7 cm AI PHT 626.5 msec EDV 2D 113.8 cm3 LVOT Peak Luis 0.8 m/sec ESV 2D 81.6 cm3 LVOT Peak PG 2.6 mmHg LA Dimen 2D 3.1 2.3 - 4.0 cm Findings Left Ventricle: Normal left ventricular systolic function. Normal left ventricular cavity size. Normal left ventricular wall thickness. Ejection fraction is visually estimated at 55 %. Right Ventricle: Normal right ventricular size. Normal right ventricular systolic function. Left Atrium: The left atrium is normal in size. Right Atrium: The right atrium is normal in size. Mitral Valve: Mitral valve leaflets appear mildly thickened. No mitral valve regurgitation is seen. Aortic Valve: Normal appearance of the aortic valve. No hemodynamically significant aortic stenosis by doppler. Mild aortic valve regurgitation. Tricuspid Valve: Normal appearance and function of the tricuspid valve with trace physiologic regurgitation. Pericardium: Normal pericardium with no significant pericardial effusion. Aorta: Normal aortic root. IVC: Normal size and normal respiratory collapse consistent with normal right atrial pressure. Conclusions 1.Normal left ventricular systolic function. Normal left ventricular cavity size. Normal left ventricular wall thickness. Ejection fraction is visually estimated at 55 %. 2.Normal right ventricular size. Normal right ventricular systolic function. 3.The left atrium is normal in size. 4.The right atrium is normal in size. 5.Normal appearance of the aortic valve. No hemodynamically significant aortic stenosis by doppler. Mild aortic valve regurgitation. 6.No significant valvular stenosis or regurgitation seen of remaining visualized valves. 7.Normal pericardium with no significant pericardial effusion. Electronically Signed By: Rakesh Burns 26-May-2016 14:42:51 -0800 Patient Name: JESSICA MIDDLETON Study Date: 26-May-[id number]
[2016-05-26] MEDS ORDERED: ATORVASTATIN 40 MG TAB PO SCH (21:00)
== END 2016-05-26 14:10 | disposition left against medical advice (07) | DRG 57 ==
LOC: E/R 16:26 → TEL 19:14
PROVIDERS: ADMIT Internal Medicine; ATTEND Internal Medicine
DX: I69.398 Other sequelae of cerebral infarction (principal); G93.89 Other specified disorders of brain; R13.10 Dysphagia, unspecified; I10 Essential (primary) hypertension; J44.9 Chronic obstructive pulmonary disease, unspecified; R51 Headache; R42 Dizziness and giddiness
CPT/HCPCS: 36415; 70450; 71010; 80053; 80061; 81003; 84439; 84443; 84484; 85025; 85610; 85730; 87086; 92610; 93005; 93306; 93880; 96374; 96375; J1200; J2060; J2270; J3030; J7030

== ENCOUNTER 2016-05-31 19:56 | Emergency (ER) | payer OTHER ==
[~2016-05-31] VITALS: Ht 157.5 cm; Wt 55.0 kg
[~2016-05-31 19:56] MED LIST changes: +TRAM50TA2 PO; -ULT50 PO
--- NOTE | 2016-05-31 20:11 | QN ---
Documentation Comment Patient was seen immediately upon arrival the patient arrived by ambulance. The patient will be seen by another provider. Medical screening exam was initiated. ERMA DOUGLAS MD May 31, 2016 20:11
[2016-05-31 20:24] VITALS: Ht 157.5 cm; Wt 55.0 kg
[2016-05-31 21:46] LABS: CHLORIDE 100 mmol/L (97-110); POTASSIUM 4.7 mmol/L (3.5-5.1); SODIUM 139 mmol/L (135-144)
[2016-05-31 21:47] LABS: INR 0.86; PROTIME 11.7 Sec (12.2-14.2); PT RATIO 0.9
[2016-05-31 21:49] LABS: ANION GAP 18 (8-16); BLOOD UREA NITROGEN 14 mg/dl (7-20); CARBON DIOXIDE 26 mmol/L (21-31); CREATININE 0.73 mg/dl (0.44-1.00)
[2016-05-31 21:50] LABS: CALCIUM 9.2 mg/dl (8.4-10.2); GLUCOSE 103 mg/dl (70-220)
[2016-05-31 22:03] LABS: TROPONIN-I < 0.012 ng/ml (0.00-0.12)
--- NOTE | 2016-05-31 22:08 | RADRPT ---
PROCEDURE: CT Brain without contrast. CLINICAL INDICATION: Right arm weakness and recent right cerebellar stroke. TECHNIQUE: A multiplanar CT of the brain was performed on a CT scanner utilizing axial imaging fro m the skull base through the vertex without IV contrast. The CTDIvol is 45.01 mGy and the DLP is 72 0.23 mGycm. One or more of the following dose reduction techniques were utilized: Automated exposu re control, adjustment of the mA and/or kV according to patient size, use of iterative reconstructio n technique. COMPARISON: None FINDINGS: No evidence of intracranial hemorrhage or abnormal extra-axial fluid collection. Patchy periventricular and subcortical white matter low attenuation greatest on the left. No edema, mass effect, or shift. These findings may reflect chronic microvascular ischemic injury. Subtle i ndistinctness of the left precentral and post central gyri suspicious for early ischemic infarct. Re mote left posterior inferior cerebellar infarct. The ventricles and subarachnoid spaces are age-appropriate in size. The posterior fossa contents, brainstem, craniocervical junction, orbits, pituitary axis, paranasal sinuses, mastoid air cells, and calvarium are otherwise unremarkable. IMPRESSION: 1. Patchy low attenuation throughout the deep white matter compatible with sequelae of chronic micr ovascular ischemic injury. A subtle indistinctness of the jennings-white differentiation in the left po sterior frontal lobe involving the precentral and post central gyri raising the question of early is chemic infarction. Diffusion weighted MRI may be considered for further evaluation. 2. Remote ischemic infarction involving the inferior left cerebellar hemisphere. 3. No evidence of intracranial hemorrhage or abnormal extra-axial fluid collection. RPTAT:AAJJ Physician Jon Date Time Electronically viewed and signed by Physician Jon on 05/31/2016 22:08 MIGUELINA/
[2016-05-31] MEDS ORDERED: ASPIRIN 325 MG TAB PO ONE (22:30)
[2016-05-31] MEDS ORDERED: morphine 2 MG INJ IV ONE (22:30)
[2016-05-31 22:40] LABS: PARTIAL THROMBOPLASTIN TIME 28.5 Sec (25.0-35.0)
[2016-05-31] MEDS ORDERED: DIPHENHYDRAMINE 50 MG INJ IM ONE (23:00)
[2016-05-31 23:01] LABS: ADD UMIC YES; URINE BILIRUBIN (Dip) NEGATIVE (NEGATIVE); URINE BLOOD (Dip) NEGATIVE (NEGATIVE); URINE COLOR LT. YELLOW (YELLOW); URINE GLUCOSE (Dip) NEGATIVE (NEGATIVE); URINE KETONES (Dip) NEGATIVE (NEGATIVE); URINE LEUKOCYTE ESTERASE (Dip) TRACE (NEGATIVE); URINE NITRITE (Dip) NEGATIVE (NEGATIVE); URINE TOTAL PROTEIN (Dip) NEGATIVE (NEGATIVE); URINE UROBILINOGEN (Dip) 0.2 E.U./dL (0.1-1.0)
[2016-05-31 23:07] LABS: WHITE BLOOD COUNT 6.8 10^3/ul (4.8-10.8)
[2016-05-31 23:08] LABS: HEMATOCRIT 39.4 % (37.0-47.0); MEAN CORPUSCULAR HEMOGLOBIN 29.7 pg (29.0-33.0); PLATELET COUNT 244 10^3/UL (140-440); RED BLOOD COUNT 4.38 10^6/ul (4.20-5.40); UNCORRECTED WBC 6.8 10^3/ul (4.8-10.8)
[2016-05-31 23:09] LABS: BASOPHILS % 0.4 % (0.0-2.0); EOSINOPHILS % 4.1 % (0.0-7.0); LYMPHOCYTES # 3.2 10^3/ul (0.8-2.9); LYMPHOCYTES % 47.2 % (15.0-51.0); MONOCYTE # 0.4 10^3/ul (0.3-0.9); MONOCYTES % 5.3 % (0.0-11.0); NEUTROPHIL # 2.9 10^3/ul (1.6-7.5); NEUTROPHILS % 42.9 % (39.0-77.0)
[2016-05-31 23:11] LABS: BENZODIAZEPINES Positive (NEGATIVE)
[2016-05-31 23:12] LABS: BARBITURATES Negative (NEGATIVE); CANNABINOIDS Negative (NEGATIVE)
[2016-05-31 23:13] LABS: OPIATES Negative (NEGATIVE)
[2016-05-31 23:18] LABS: COCAINE Negative (NEGATIVE)
[2016-05-31] MEDS ORDERED: ONDANSETRON 4 MG INJ IV PRN (23:30)
[2016-05-31 23:48] LABS: BACTERIA,URINE MODERATE; SQUAMOUS EPITHELIAL CELL,UR MODERATE; URINE RBCS 0-2 /HPF (0)
--- NOTE | 2016-05-31 23:51 | ERD ---
ER Documentation Chief Complaint Date/Time DATE: 05/31/16 TIME: 23:43 Chief Complaint right side GRULLON all day, +photophobia, difficulty swallowing since CVA HPI This 48-year-old female presents to the ER saying that she was to be admitted to the hospital. States that she's had a right-sided headache all data is actually been going on for a whole week. Also states that she is having trouble swallowing. This is been going on all day as well. She denies any other deficits. Denies any focal weakness. Denies chest pain shortness of breath fevers chills. ROS All systems reviewed and are negative except as per history of present illness. Medications Home Meds Active Scripts Tramadol HCl (Tramadol HCl) 50 Mg Tablet, 50 MG PO Q6, #20 TAB Prov:SANYA MILLER DO 04/07/16 Reported Medications Albuterol Sulfate* (Proair HFA*) 8.5 Gm Hfa.aer.ad, 2 PUFF INH Q4H Y for WHEEZING AND SOB, #1 INHALER 03/02/16 Benazepril Hcl* (Benazepril Hcl*) 20 Mg Tablet, 20 MG PO DAILY, #30 TAB 03/02/16 Carisoprodol* (Carisoprodol*) 350 Mg Tablet, 350 MG PO Q8 Y for MUSCLE SPASMS, TAB 03/02/16 Temazepam* (Temazepam*) 30 Mg Capsule, 30 MG PO HS Y for INSOMNIA, CAP 03/02/16 Allergies Allergies: Coded Allergies: sulfamethoxazole (Verified Allergy, Intermediate, HIVES, 05/31/16) trimethoprim (Verified Allergy, Intermediate, HIVES, 05/31/16) hydromorphone HCl (Verified Allergy, Mild, 05/31/16) acetaminophen (Verified Allergy, Unknown, 05/31/16) amoxicillin (Verified Allergy, Unknown, 05/31/16) clavulanic acid (Verified Allergy, Unknown, 05/31/16) hydrocodone (Verified Allergy, Unknown, 05/31/16) ketorolac (Verified Allergy, Unknown, 05/31/16) PMhx/Soc History of Surgery: Yes (back, surgery , hysterctomy 99, left below the knee amputation.) Anesthesia Reaction: No (denies) Hx Neurological Disorder: Yes (CVA) Hx Respiratory Disorders: Yes (EMPHYSEMA/COPD) Hx Cardiac Disorders: Yes (HTN) Hx Psychiatric Problems: No Hx Miscellaneous Medical Probl: Yes (chronic back pain, left BKA) Hx Alcohol Use: No Hx Tobacco Use: No Smoking Status: Former smoker Physical Exam Vitals Vital Signs Date Time Temp Pulse Resp B/P Pulse Ox O2 Delivery O2 Flow Rate FiO2 05/31/16 20:24 98.4 99 20 144/99 95 Physical Exam Const: [] No distress Head: Atraumatic Eyes: Normal Conjunctiva EOMI, PERRLA ENT: Normal External Ears, Nose and Mouth. Neck: Full range of motion..~ No meningismus. Resp: Clear to auscultation bilaterally Cardio: Regular rate and rhythm, no murmurs Abd: Soft, non tender, non distended. Normal bowel sounds Skin: No petechiae or rashes Back: No midline or flank tenderness Ext: No cyanosis, or edema, surgical absence of left lower leg secondary to BKA. Neur: Awake and alert and oriented 3, cranial nerves II through XII intact, no similar deficits Psych: Normal Mood and Affect Result Diagram: 05/31/16209905/31/16 2100 Results 24 hrs Laboratory Tests Test 05/31/16 21:00 05/31/16 22:00 Activated Partial Thromboplast Time 28.5Sec Anion Gap 18 Basophils # 0.010^3/ul Basophils % 0.4% Blood Urea Nitrogen 14mg/dl Calcium Level 9.2mg/dl Carbon Dioxide Level 26mmol/L Chloride Level 100mmol/L Creatinine 0.73mg/dl Eosinophils # 0.010^3/ul Eosinophils % 4.1% Glucose Level 103mg/dl Hematocrit 39.4% Hemoglobin 13.0g/dl INR International Normalized Ratio 0.86 Lymphocytes # 3.210^3/ul Lymphocytes % 47.2% Mean Corpuscular Hemoglobin 29.7pg Mean Corpuscular Hemoglobin Concent 33.0g/dl Mean Corpuscular Volume 90.0fl Mean Platelet Volume fl Monocytes # 0.410^3/ul Monocytes % 5.3% Neutrophils # 2.910^3/ul Neutrophils % 42.9% Nucleated Red Blood Cells # 0.010^3/ul Nucleated Red Blood Cells % 0.0/100WBC Platelet Count 37026^3/UL Potassium Level 4.7mmol/L Prothrombin Time 11.7Sec Prothrombin Time Ratio 0.9 Red Blood Count 4.3810^6/ul Red Cell Distribution Width % Sodium Level 139mmol/L Troponin I < 0.012ng/ml White Blood Count 6.810^3/ul Urine Amphetamines Screen Negative Urine Barbiturates Negative Urine Benzodiazepines Screen Positive Urine Bilirubin NEGATIVE Urine Cannabinoids Negative Urine Clarity CLEAR Urine Cocaine Screen Negative Urine Color LT. YELLOW Urine Glucose NEGATIVE% Urine Hemoglobin NEGATIVE Urine Ketones NEGATIVE Urine Leukocyte Esterase TRACE Urine Microscopic RBC Pending Urine Microscopic WBC Pending Urine Nitrite NEGATIVE Urine Opiates Screen Negative Urine Specific [facility] [place] 1.010 Urine Total Protein NEGATIVE Urine Urobilinogen 0.2 E.U./dL Urine pH 7.5 Current Medications Medications (Trade) Dose Ordered Sig/Migel Route PRN Reason Start Time Stop Time Status Last Admin Dose Admin Morphine Sulfate (morphine) 2 mg ONCE ONCE IV 05/31/16 22:30 05/31/16 22:31 DC 05/31/16 22:46 Aspirin (Aspirin) 325 mg ONCE ONCE PO 05/31/16 22:30 05/31/16 22:44 DC 05/31/16 22:48 Diphenhydramine HCl (Benadryl) 50 mg ONCE ONCE IM 05/31/16 23:00 05/31/16 23:01 DC 05/31/16 22:51 Ondansetron HCl (Zofran Inj) 4 mg ER BRIDGE PRN IV NAUSEA AND/OR VOMITING 05/31/16 23:30 06/01/16 23:29 Procedures/MDM 48-year-old female with possible early ischemic infarction. She had a recent CVA and states that she was having trouble swallowing earlier. This appears to have resolved. Her NIH stroke scale is 0 and she actually passed the swallow study with flying colors was able take an aspirin after CT return. She has no signs of acute coronary syndrome with a nonischemic EKG and negative troponin. She remained stable on the monitor. She is going to be admitted for further evaluation and neurological assessment. She was given 2 mg of morphine for her headache which helped the headache dramatically. She then complains of itching after the headache and asked for IV Benadryl. She was given 50 mg of Benadryl IM which resolved her itching. No signs of acute infection. Spoke with Dr. Sanon who will be admitting the patient to telemetry for further evaluation and monitoring. CT brain interpretation: I see no acute process no hemorrhage no mass to midline shift no skull fracture. Radiologist mentioned normality of differentiation of the jennings-white matter possibly representing an early ischemic stroke. radiation monitor interpretation: Normal sinus rhythm without arrhythmia. EKG interpretation: Normal sinus rhythm rate of 86, normal axis, no ST or T- wave changes concerning for acute ischemia, QT of 490 Departure Diagnosis: Primary Impression: Acute headache Additional Impressions: CVA (cerebral vascular accident) Dysphagia Condition: Stable DEAN GILBERT DO May 31, 2016 23:51
[2016-06-01] MEDS ORDERED: LORAZEPAM 2 MG INJ ONE (01:17)
[2016-06-01] MEDS ORDERED: LORAZEPAM 2 MG INJ IV ONE (01:30)
[2016-06-01] MEDS ORDERED: morphine 4 MG/ML VIAL IV PRN (05:00)
[2016-06-01 07:40] VITALS: BP 104/66; PULSE 81; RESP 17; TEMP 98.4
== END 2016-06-01 08:38 | disposition left against medical advice (07) ==
LOC: E/R 19:56
DX: R51 Headache (principal); I63.9 Cerebral infarction, unspecified; R13.10 Dysphagia, unspecified; J44.9 Chronic obstructive pulmonary disease, unspecified; I10 Essential (primary) hypertension; Z87.891 Personal history of nicotine dependence
CPT/HCPCS: 36415; 70450; 80048; 80307; 81001; 84484; 85025; 85610; 85730; 93005; 96372; 96374; 96375; 96376; J1200; J2060; J2270; J2405; Z7502; Z7610; 81003

== ENCOUNTER 2016-06-05 10:09 | Emergency (ER) | payer OTHER ==
[~2016-06-05] VITALS: Ht 165.1 cm; Wt 60.0 kg
[2016-06-05 10:14] VITALS: Ht 165.1 cm; Wt 60.0 kg
[2016-06-05] MEDS ORDERED: SOD CHLORIDE 0.9% 1,000 ML IV STA ×2 (11:29→11:39)
[2016-06-05] MEDS ORDERED: LORAZEPAM 2 MG INJ IV ONE (12:00)
[2016-06-05 12:15] LABS: BASOPHILS % 0.3 % (0.0-2.0); EOSINOPHILS # 0.2 10^3/ul (0.0-0.5); EOSINOPHILS % 2.1 % (0.0-7.0); HEMATOCRIT 41.9 % (37.0-47.0); LYMPHOCYTES # 2.4 10^3/ul (0.8-2.9); LYMPHOCYTES % 28.2 % (15.0-51.0); MEAN CORPUSCULAR HEMOGLOBIN 29.8 pg (29.0-33.0); MEAN CORPUSCULAR HGB CONC 33.5 g/dl (32.0-37.0); MEAN CORPUSCULAR VOLUME 89.1 fl (82.0-101.0); MEAN PLATELET VOLUME 8.6 fl (7.4-10.4); MONOCYTE # 0.3 10^3/ul (0.3-0.9); MONOCYTES % 3.8 % (0.0-11.0); NEUTROPHIL # 5.5 10^3/ul (1.6-7.5); NEUTROPHILS % 65.6 % (39.0-77.0); PLATELET COUNT 240 10^3/UL (140-440); RED CELL DISTRIBUTION WIDTH 16.3 % (11.5-14.5); UNCORRECTED WBC 8.4 10^3/ul (4.8-10.8); WHITE BLOOD COUNT 8.4 10^3/ul (4.8-10.8)
[2016-06-05 12:17] LABS: CONDITION 1; LH ANALYZER COMMENTS 1
[2016-06-05] MEDS ORDERED: morphine 4 MG/ML VIAL IV STA (12:28)
[2016-06-05] MEDS ORDERED: ONDANSETRON 4 MG INJ IV STA (12:28)
[2016-06-05 12:30] LABS: ALBUMIN 4.3 g/dl (3.3-4.9)
[2016-06-05 12:31] LABS: POTASSIUM 4.5 mmol/L (3.5-5.1)
[2016-06-05 12:33] LABS: ALBUMIN/GLOBULIN RATIO 0.86; BILIRUBIN,INDIRECT 0.2 mg/dl (0-1.1); BILIRUBIN,TOTAL 0.2 mg/dl (0.2-1.3); CREATININE 0.7 mg/dl (0.44-1.00); TOTAL PROTEIN 9.3 g/dl (6.1-8.1)
[2016-06-05 12:34] LABS: CALCIUM 9.6 mg/dl (8.4-10.2)
[2016-06-05 12:37] LABS: INR 0.96; PROTIME 12.8 Sec (12.2-14.2)
[2016-06-05 12:38] LABS: PARTIAL THROMBOPLASTIN TIME 30.2 Sec (25.0-35.0)
[2016-06-05 13:42] VITALS: BP 138/80; PULSE 78; RESP 16; TEMP 98.3
--- NOTE | 2016-06-05 13:53 | ERD ---
ER Documentation Chief Complaint Date/Time DATE: 06/05/16 TIME: 13:51 Chief Complaint SEVERE HEADACHE X 2 MONTHS HPI This is a 56-year-old female with a known history of hypertension, CVA, COPD and previous back surgery secondary to herniated disks resulting chronic pain. The patient presents to the emergency department today stating that she is feeling very anxious. She also indicates that she is having intermittent headaches. She is very adamant that she does not want any radiographic imaging today and that her only concern is to receive IV fluids as she feels dehydrated and Ativan. She would also like medicine for analgesic control for the headache. She denies any weakness of her upper or lower extremities. She describes the headache as bilateral, frontal, pulsating and she denies any associated symptoms of changes in vision nausea vomiting. The patient recently has had multiple hospitalizations over the past month. On May 17 the patient had presented to the emergency department with a headache and strokelike symptoms. A CT scan of the head had been ordered and reviewed and showed an ischemic infarct in the left cerebral hemisphere. The patient had left AGAINST MEDICAL ADVICE. She returned on May 25 for recurrent headaches and at that time was admitted to the hospital and seen by the neurologist on May 26 2016. An MRI of the brain had been ordered given that repeat CT scan of the head on that day showed a small area of encephalomalacia involving the caudal aspect of the left cerebral hemisphere that was compatible with evolution of the previously small infarct and chronic appearing micro-vascular changes. The patient at that time had complained of left upper extremity weakness that have progressively been getting worse and reported dysphagia to solids and liquids however the patient states this has completely resolved she denies any weakness of her left upper extremity. The patient is wheelchair-bound secondary to left below the knee amputation. The patient had again left AGAINST MEDICAL ADVICE and returned on May 31, 5 days prior to arrival to the ER. Repeat CT scan of the head was reviewed as the patient was complaining of headaches at that time. The CT scan showed no acute process no hemorrhage no mass-effect but there was differentiation of the jennings-white matter that possibly represent an early ischemic stroke. The patient however had left AGAINST MEDICAL ADVICE and returns today with the above complaints. ROS All systems reviewed and are negative except as per history of present illness. Medications Home Meds Reported Medications Albuterol Sulfate* (Proair HFA*) 8.5 Gm Hfa.aer.ad, 2 PUFF INH Q4H Y for WHEEZING AND SOB, #1 INHALER 03/02/16 Benazepril Hcl* (Benazepril Hcl*) 20 Mg Tablet, 20 MG PO DAILY, #30 TAB 03/02/16 Carisoprodol* (Carisoprodol*) 350 Mg Tablet, 350 MG PO Q8 Y for MUSCLE SPASMS, TAB 03/02/16 Temazepam* (Temazepam*) 30 Mg Capsule, 30 MG PO HS Y for INSOMNIA, CAP 03/02/16 Discontinued Scripts Tramadol HCl (Tramadol HCl) 50 Mg Tablet, 50 MG PO Q6, #20 TAB Prov:LEKKOS,ERASMOS A. DO 04/07/16 Allergies Allergies: Coded Allergies: sulfamethoxazole (Verified Allergy, Intermediate, HIVES, 06/05/16) trimethoprim (Verified Allergy, Intermediate, HIVES, 06/05/16) hydromorphone HCl (Verified Allergy, Mild, 06/05/16) acetaminophen (Verified Allergy, Unknown, 06/05/16) amoxicillin (Verified Allergy, Unknown, 06/05/16) clavulanic acid (Verified Allergy, Unknown, 06/05/16) hydrocodone (Verified Allergy, Unknown, 06/05/16) ketorolac (Verified Allergy, Unknown, 06/05/16) PMhx/Soc History of Surgery: Yes (back, surgery , hysterctomy 99, left below the knee amputation.) Anesthesia Reaction: No (denies) Hx Neurological Disorder: Yes (CVA) Hx Respiratory Disorders: Yes (EMPHYSEMA/COPD) Hx Cardiac Disorders: Yes (HTN) Hx Psychiatric Problems: No Hx Miscellaneous Medical Probl: Yes (chronic back pain, left BKA) Hx Alcohol Use: No Hx Tobacco Use: No Smoking Status: Former smoker Physical Exam Vitals Vital Signs Date Time Temp Pulse Resp B/P Pulse Ox O2 Delivery O2 Flow Rate FiO2 06/05/16 13:42 98.3 78 16 138/80 98 Room Air 06/05/16 10:14 98.2 98 18 140/78 98 Physical Exam Constitutional:Well-developed. Well-nourished. HEENT:Normocephalic. Atraumatic.Pupils were equal round reactive to light. Moist mucous membranes.No tonsillar exudates. Funduscopy exam showed sharp optic disc bilaterally venous pulsations were present peer no pooling of secretions within the oropharynx. Neck: No nuchal rigidity. No lymphadenopathy. No posterior cervical spine tenderness or step-offs. Respiratory: Not using accessory muscles of respiration.Lungs were clear to auscultation bilaterally. No rhonchi. No rales. No wheezing. Cardiovascular: Regular rate regular rhythm.No murmurs. No rubs were appreciated.S1, S2 normal. Distal pulses are palpable 2+ bilaterally. GI: Abdomen was soft. Nontender. Non Distended. No pulsatile abdominal masses or bruits. No rebound. No guarding. Bowel sounds were present and normal. Muscle skeletal: Full range of motion of both the upper extremities bilaterally. Patient has left below the knee amputation. Skin: No petechia, no purpura. No lesions on the palms or the soles of the feet. No maculopapular rash. NEURO: Patient was alert, awake, orientated x3.No facial droop. Gait observed and normal with no ataxia.Speech had regular rate and rhythm. No focal neurological deficits. Handgrip equal and symmetrical bilaterally. NIH stroke scale 0 Result Diagram: 06/05/16 1200 06/05/16 1200 Results 24 hrs Laboratory Tests Test 06/05/16 12:00 Activated Partial Thromboplast Time 30.2Sec Alanine Aminotransferase (ALT/SGPT) 20IU/L Albumin 4.3g/dl Albumin/Globulin Ratio 0.86 Alkaline Phosphatase 125IU/L Anion Gap 20 Aspartate Amino Transf (AST/SGOT) 26IU/L Basophils # 0.010^3/ul Basophils % 0.3% Blood Morphology Comment Blood Urea Nitrogen 5mg/dl Calcium Level 9.6mg/dl Carbon Dioxide Level 26mmol/L Chloride Level 103mmol/L Creatinine 0.70mg/dl Direct Bilirubin 0.00mg/dl Eosinophils # 0.210^3/ul Eosinophils % 2.1% Globulin 5.00g/dl Glucose Level 93mg/dl Hematocrit 41.9% Hemoglobin 14.0g/dl INR International Normalized Ratio 0.96 Indirect Bilirubin 0.2mg/dl Lymphocytes # 2.410^3/ul Lymphocytes % 28.2% Mean Corpuscular Hemoglobin 29.8pg Mean Corpuscular Hemoglobin Concent 33.5g/dl Mean Corpuscular Volume 89.1fl Mean Platelet Volume 8.6fl Monocytes # 0.310^3/ul Monocytes % 3.8% Neutrophils # 5.510^3/ul Neutrophils % 65.6% Nucleated Red Blood Cells # 0.010^3/ul Nucleated Red Blood Cells % 0.0/100WBC Platelet Count 77863^3/UL Potassium Level 4.5mmol/L Prothrombin Time 12.8Sec Prothrombin Time Ratio 1.0 Red Blood Count 4.7010^6/ul Red Cell Distribution Width 16.3% Sodium Level 144mmol/L Total Bilirubin 0.2mg/dl Total Protein 9.3g/dl White Blood Count 8.410^3/ul Current Medications Medications (Trade) Dose Ordered Sig/Migel Route PRN Reason Start Time Stop Time Status Last Admin Dose Admin Sodium Chloride 1,000 ml @ 1,000 mls/hr Q1H STAT IV 06/05/16 11:29 06/05/16 12:28 DC 06/05/16 12:01 Sodium Chloride (NS) 1,000 ml @ 1,000 mls/hr Q1H STAT IV 06/05/16 11:39 06/05/16 12:38 DC 06/05/16 13:13 Lorazepam (Ativan) 1 mg ONCE ONCE IV 06/05/16 12:00 06/05/16 12:01 DC 06/05/16 12:01 Morphine Sulfate (morphine) 4 mg ONCE STAT IV 06/05/16 12:28 06/05/16 12:29 DC 06/05/16 13:13 Ondansetron HCl (Zofran Inj) 4 mg ONCE STAT IV 06/05/16 12:28 06/05/16 12:29 DC 06/05/16 13:13 Procedures/MDM The patient presented to the emergency department with a subacute headache that began within weeks to months of onset. My differential diagnosis included but was not limited to chronic subdural hematoma, brain tumor, brain abscess, chronic sinusitis, temporal arteritis, temporomandibular joint syndrome, psuedotumor cerebri, glaucoma, migrane, HTN, intracranial hemorrhage or cerebral ischemia. This was not the patients worse headache of their life. The patient had a complete neurologic and fundoscopic exam performed by myself that was normal with no focal neurological deficits or retinal hemorrhage. The patient stated this headache was not severe or distinct from other headaches she has been having over the past month and the history with the physical exam findings did not likely suggest SAH. Therefore, I did not feel it was clinically necessary to perform a lumbar puncture and CSF analysis. I did explain to the patient that I would like to repeat the CT scan of the head given that the patient has left multiple times AGAINST MEDICAL ADVICE with signs of a possible ischemic cerebral vascular accident. The patient however is very adamant that she did not want a CT scan of her head. She wanted to be treated in the emergency department with IV fluids and Ativan for her acute anxiety reaction. I also gave the patient intravenous morphine is she did ask for analgesic medication for her chronic pain. I did again indicate to the patient the importance of undergoing an MRI of her brain due to the abnormal findings on the CT scan. She has a caregiver who is with her and stated she will be following up with her primary care physician tomorrow and will arrange for an outpatient MRI. The patient was discharged home in fair condition. They were instructed to return to the emergency department at any time if there was any worsening of their condition. The patient stated they would follow up with their PCP in the next 24-48 hours to initiate a suitable medication regimen under the care of their PCP as well as to allow their PCP to monitor any drug reactions. The patient was discharged home with prescriptions after they gave informed consent to the new medication. They were also fully informed by myself on the adverse effects and adverse drug interactions in order to provide adequate safeguards to prevent possible adverse reactions to medications. Departure Diagnosis: Primary Impression: Headache Headache type: unspecified Headache chronicity pattern: unspecified pattern Intractability: not intractable Qualified Code: R51 - Nonintractable headache, unspecified chronicity pattern, unspecified headache type Additional Impression: Anxiety attack Condition: Fair Patient Instructions: Anxiety Reaction, Headache, Unspecified Referrals: CHARLA BROWN (PCP) ROLY EVERETT Jun 05, 2016 13:53
== END 2016-06-05 13:14 | disposition home or self-care (01) ==
LOC: E/R 10:09
DX: R51 Headache (principal); F41.9 Anxiety disorder, unspecified; I10 Essential (primary) hypertension; J44.9 Chronic obstructive pulmonary disease, unspecified; R40.2142 Coma scale, eyes open, spontaneous, at arrival to emergency department; R40.2252 Coma scale, best verbal response, oriented, at arrival to emergency department; R40.2362 Coma scale, best motor response, obeys commands, at arrival to emergency department; Z87.891 Personal history of nicotine dependence
CPT/HCPCS: 80053; 85025; 85610; 85730; J2060; J2270; J2405; J7030; 96374; 96375

== ENCOUNTER 2016-06-06 12:33 | Emergency (ER) | END 2016-06-06 16:39 | disposition home or self-care (01) | DX: S39.92XA Unspecified injury of lower back, initial encounter (principal); I10 Essential (primary) hypertension; J44.9 Chronic obstructive pulmonary disease, unspecified; W18.39XA Other fall on same level, initial encounter; Y92.9 Unspecified place or not applicable ==

== ENCOUNTER 2016-06-10 12:16 | Emergency (ER) | payer OTHER ==
[~2016-06-10 12:16] MED LIST changes: -TRAM50TA2 PO
== END 2016-06-10 15:49 | disposition left against medical advice (07) ==
LOC: E/R 12:16
DX: Z53.21 Procedure and treatment not carried out due to patient leaving prior to being seen by health care provider (principal)

== ENCOUNTER 2016-06-13 21:04 | Inpatient (IN) | payer OTHER ==
[~2016-06-13] VITALS: Ht 157.5 cm; Wt 57.0 kg
[2016-06-13] MEDS ORDERED: ONDANSETRON 4 MG INJ IV STA (22:47)
[2016-06-13] MEDS ORDERED: morphine 4 MG/ML VIAL IV STA (22:47)
[2016-06-13] MEDS ORDERED: LORAZEPAM 2 MG INJ IV ONE (23:00)
[2016-06-13 23:27] LABS: CHLORIDE 104 mmol/L (97-110)
[2016-06-13 23:28] LABS: INR 0.89; PARTIAL THROMBOPLASTIN TIME 29.7 Sec (25.0-35.0); POTASSIUM 3.8 mmol/L (3.5-5.1); PT RATIO 0.9; SODIUM 144 mmol/L (135-144)
[2016-06-13 23:29] LABS: BASOPHILS % 0.4 % (0.0-2.0); EOSINOPHILS # 0.2 10^3/ul (0.0-0.5); EOSINOPHILS % 2.2 % (0.0-7.0); HEMATOCRIT 37.4 % (37.0-47.0); HEMOGLOBIN 12.5 g/dl (12.0-16.0); LYMPHOCYTES # 3.2 10^3/ul (0.8-2.9); LYMPHOCYTES % 41.7 % (15.0-51.0); MEAN CORPUSCULAR HGB CONC 33.4 g/dl (32.0-37.0); MEAN CORPUSCULAR VOLUME 89.6 fl (82.0-101.0); MONOCYTE # 0.4 10^3/ul (0.3-0.9); MONOCYTES % 4.7 % (0.0-11.0); NEUTROPHIL # 3.9 10^3/ul (1.6-7.5); PLATELET COUNT 240 10^3/UL (140-440); RED BLOOD COUNT 4.18 10^6/ul (4.20-5.40); RED CELL DISTRIBUTION WIDTH 16.3 % (11.5-14.5); UNCORRECTED WBC 7.7 10^3/ul (4.8-10.8); WHITE BLOOD COUNT 7.7 10^3/ul (4.8-10.8)
[2016-06-13 23:30] LABS: ANION GAP 17 (8-16); CARBON DIOXIDE 27 mmol/L (21-31); CREATININE 0.71 mg/dl (0.44-1.00)
[2016-06-13 23:31] LABS: BLOOD UREA NITROGEN 11 mg/dl (7-20); CALCIUM 8.7 mg/dl (8.4-10.2); GLUCOSE 107 mg/dl (70-220)
[2016-06-13 23:32] LABS: CONDITION 1; LH ANALYZER COMMENTS 1; SUSPECT 1
[2016-06-13 23:48] LABS: TROPONIN-I < 0.012 ng/ml (0.00-0.12)
--- NOTE | 2016-06-13 23:51 | RADRPT ---
PROCEDURE: XR Chest. CLINICAL INDICATION: Headaches. TECHNIQUE: Portable AP semi erect view of the chest was obtained. COMPARISON: 05/25/2016 FINDINGS: The cardiomediastinal silhouette is within normal limits. The lungs are clear. Interstitial edema s een previously has decreased. There is no evidence of pleural effusion. No pneumothorax is present. Metallic fixation plate and screws in the visualized cervical spine are consistent with prior surge ry.. RPTAT:HJJR IMPRESSION: 1. Interval decrease in interstitial edema compared to 05/25/2016. 2. No evidence of acute intrathoracic pathology. Physician Renee Date Time Electronically viewed and signed by Physician Renee on 06/13/2016 23:51 JR/
[2016-06-14] VITALS (9 sets, daily range): BP systolic 93–148; BP diastolic 57–85; PULSE 75–107; RESP 18–20; TEMP 98.6; Ht 157.5 cm; Wt 57.0 kg
--- NOTE | 2016-06-14 00:09 | RADRPT ---
PROCEDURE: CT brain without contrast CLINICAL INDICATION: Headaches TECHNIQUE: A CT of the brain was performed utilizing axial sections from the skull base through th e vertex without contrast. Sagittal and coronal images were also reformatted. The exam CTDIvol = 45. 01 mGy and DLP = 810.25 mGy-cm. COMPARISON: 05/31/2016 FINDINGS: No acute intracranial hemorrhage is identified. There is no mass effect or midline shift. No extra -axial fluid collection is seen. The ventricles and sulci are within normal limits for size and con figuration for the patient's provided age of 56 years. Scattered areas of low attenuation involving the subcortical and periventricular white matter asymmetrically on the left side greater than right are again noted, nonspecific and likely the sequela of chronic small vessel ischemia [place]-white di fferentiation is preserved, the previously suggested subtle changes of the left precentral and post central gyri are not currently appreciated. Postoperative suboccipital fusion is again noted with the upper cervical spine. There is no acute o sseous abnormality of the bony calvarium or skull base. Chronic appearing opacification of the righ t sphenoid sinus is now visualized, the remaining included paranasal sinuses and mastoid air cells a re clear. RPTAT:HJJR IMPRESSION: 1. Generalized age-appropriate cerebral tissue loss and nonspecific cerebral white matter disease i s stable compared to 05/31/2016 although the subtle area of left precentral and post central gyrus d ensity alteration suggested on the previous exam is not currently appreciated. 2. Development of sphenoid sinus disease. 3. Postoperative changes consistent with suboccipital and cervical spine fusion are again noted. Physician Renee Date Time Electronically viewed and signed by Physician Renee on 06/14/2016 00:09 JR/
[2016-06-14] MEDS ORDERED: morphine 4 MG/ML VIAL IV STA ×2 (01:02→05:34)
[2016-06-14] MEDS ORDERED: SOD CHLORIDE 0.9% 1,000 ML IV SCH (01:08)
[2016-06-14] MEDS ORDERED: ONDANSETRON 4 MG INJ IV PRN (01:30)
[2016-06-14] MEDS ORDERED: DIPHENHYDRAMINE 50 MG INJ IV ONE (01:30)
--- NOTE | 2016-06-14 02:04 | ERA ---
ER Documentation Chief Complaint Date/Time DATE: 06/14/16 TIME: 01:56 Chief Complaint diziness, headache HPI This is a 48-year-old female because of once a dizziness headache and she said she had 2 minutes of slurred speech. She denies any fevers or chills. Denies any chest pain. Denies any other current complaints. ROS All systems reviewed and are negative except as per history of present illness. Medications Home Meds Reported Medications Albuterol Sulfate* (Proair HFA*) 8.5 Gm Hfa.aer.ad, 2 PUFF INH Q4H Y for WHEEZING AND SOB, #1 INHALER 03/02/16 Benazepril Hcl* (Benazepril Hcl*) 20 Mg Tablet, 20 MG PO DAILY, #30 TAB 03/02/16 Carisoprodol* (Carisoprodol*) 350 Mg Tablet, 350 MG PO Q8 Y for MUSCLE SPASMS, TAB 03/02/16 Temazepam* (Temazepam*) 30 Mg Capsule, 30 MG PO HS Y for INSOMNIA, CAP 03/02/16 Allergies Allergies: Coded Allergies: sulfamethoxazole (Verified Allergy, Intermediate, HIVES, 06/05/16) trimethoprim (Verified Allergy, Intermediate, HIVES, 06/05/16) hydromorphone HCl (Verified Allergy, Mild, 06/05/16) acetaminophen (Verified Allergy, Unknown, 06/05/16) amoxicillin (Verified Allergy, Unknown, 06/05/16) clavulanic acid (Verified Allergy, Unknown, 06/05/16) hydrocodone (Verified Allergy, Unknown, 06/05/16) ketorolac (Verified Allergy, Unknown, 06/05/16) PMhx/Soc History of Surgery: Yes (back, surgery , hysterctomy 99, left below the knee amputation.) Anesthesia Reaction: No (denies) Hx Neurological Disorder: Yes (CVA) Hx Respiratory Disorders: Yes (EMPHYSEMA/COPD) Hx Cardiac Disorders: Yes (HTN) Hx Psychiatric Problems: No Hx Miscellaneous Medical Probl: Yes (chronic back pain, left BKA) Hx Alcohol Use: No Hx Tobacco Use: No Smoking Status: Current every day smoker Physical Exam Vitals Vital Signs Date Time Temp Pulse Resp B/P Pulse Ox O2 Delivery O2 Flow Rate FiO2 06/14/16 01:22 98.6 83 20 118/63 100 Room Air 2/7/17 21:14 99.0 77 20 110/74 99 Physical Exam Const: [] Head: Atraumatic Eyes: Normal Conjunctiva ENT: Normal External Ears, Nose and Mouth. Neck: Full range of motion..~ No meningismus. Resp: Clear to auscultation bilaterally Cardio: Regular rate and rhythm, no murmurs Abd: Soft, non tender, non distended. Normal bowel sounds Skin: No petechiae or rashes Back: No midline or flank tenderness Ext: No cyanosis, or edema Neur: Awake and alert Psych: Normal Mood and Affect Result Diagram: 06/13/16225206/13/162252 Results 24 hrs Laboratory Tests Test 06/13/16 22:53 Activated Partial Thromboplast Time 29.7Sec Anion Gap 17 Basophils # 0.010^3/ul Basophils % 0.4% Blood Morphology Comment Blood Urea Nitrogen 11mg/dl Calcium Level 8.7mg/dl Carbon Dioxide Level 27mmol/L Chloride Level 104mmol/L Creatinine 0.71mg/dl Eosinophils # 0.210^3/ul Eosinophils % 2.2% Glucose Level 107mg/dl Hematocrit 37.4% Hemoglobin 12.5g/dl INR International Normalized Ratio 0.89 Lymphocytes # 3.210^3/ul Lymphocytes % 41.7% Mean Corpuscular Hemoglobin 30.0pg Mean Corpuscular Hemoglobin Concent 33.4g/dl Mean Corpuscular Volume 89.6fl Mean Platelet Volume 8.0fl Monocytes # 0.410^3/ul Monocytes % 4.7% Neutrophils # 3.910^3/ul Neutrophils % 51.0% Nucleated Red Blood Cells # 0.010^3/ul Nucleated Red Blood Cells % 0.0/100WBC Platelet Count 59950^3/UL Potassium Level 3.8mmol/L Prothrombin Time 12.0Sec Prothrombin Time Ratio 0.9 Red Blood Count 4.1810^6/ul Red Cell Distribution Width 16.3% Sodium Level 144mmol/L Troponin I < 0.012ng/ml White Blood Count 7.710^3/ul Current Medications Medications (Trade) Dose Ordered Sig/Migel Route PRN Reason Start Time Stop Time Status Last Admin Dose Admin Ondansetron HCl (Zofran Inj) 4 mg ONCE STAT IV 06/13/16 22:47 06/13/16 22:48 DC 06/13/16 23:13 Morphine Sulfate (morphine) 4 mg ONCE STAT IV 06/13/16 22:47 06/13/16 22:48 DC 06/13/16 23:14 Lorazepam (Ativan) 1 mg ONCE ONCE IV 06/13/16 23:00 06/13/16 23:01 DC 06/13/16 23:14 Morphine Sulfate (morphine) 4 mg ONCE STAT IV 06/14/16 01:02 06/14/16 01:03 DC Diphenhydramine HCl 25 mg 25 mg ONCE ONCE IV 06/14/16 01:30 06/14/16 01:31 DC Sodium Chloride (NS) 1,000 ml @ 80 mls/hr [id number] IV 06/14/16 01:08 06/14/16 13:37 Ondansetron HCl (Zofran Inj) 4 mg ER BRIDGE PRN IV NAUSEA AND/OR VOMITING 06/14/16 01:30 06/15/16 01:29 Procedures/MDM EKG: Rate/Rhythm: [Normal Sinus Rhythm] QRS, ST, T-waves: [No changes consistent w/ acute ischemia] Impression: [No evidence of ischemia or arrhythmia] Chest X-ray 1V Interpreted by me: Soft Tissue: No acute abnormalities Bones: No acute abnormalities Mediastinum/Cardiac Silhouette/Lungs: [No acute abnormalities] CT that was negative Medical decision making: This patient had what looks to be a possible TIA. At this point is clinically stable. Patient will be admitted to Dr. Blackwell who is admitted patient previously. Patient requests to be admitted to Dr. Blackwell Departure Diagnosis: Primary Impression: Dizziness Additional Impression: TIA (transient ischemic attack) Qualified Code: G45.9 - Transient cerebral ischemia, unspecified type Condition: Stable WHITNEY FLYNN Jun 14, 2016 02:04
[2016-06-14] MEDS ORDERED: LORAZEPAM 2 MG INJ IV ONE ×2 (05:00→06:00)
[2016-06-14] MEDS ORDERED: CARISOPRODOL 350 MG TAB PO PRN (09:30)
[2016-06-14] MEDS: morphine 2 MG INJ IV PRN ×2 (10:04→16:47)
[2016-06-14] MEDS ORDERED: ALBUTEROL HFA 8 GM INHALER INH PRN (10:30)
--- NOTE | 2016-06-14 11:09 | RADRPT ---
PROCEDURE: US Carotids. CLINICAL INDICATION: bruit , Dx TIA TECHNIQUE: Multiple sonographic of the carotid bifurcation region and vertebral arteries were obta ined utilizing jennings scale, duplex and color-flow imaging. The images were reviewed on a PACS worksta tion. COMPARISON: 05/25/16 FINDINGS: Evaluation of the right carotid bifurcation region reveals mild calcific atherosclerotic disease. Evaluation of the left carotid bifurcation region reveals mild calcific atherosclerotic disease. There is antegrade flow within the vertebral arteries bilaterally. RIGHT CAROTID MEASUREMENTS: Common Carotid Uckzfv13 (cm/sec) Internal Carotid Artery - eewvzenj87.9 (cm/sec) Internal Carotid Artery - mid92.2 (cm/sec) Internal Carotid Artery - amilmo58.6 (cm/sec) Internal Carotid/Common Carotid2.19 LEFT CAROTID MEASUREMENTS: Common Carotid Kfyymf46.7 (cm/sec) Internal Carotid Artery - ewrzfclp33.6 (cm/sec) Internal Carotid Artery - mid57.7 (cm/sec) Internal Carotid Artery - pjfkke45.6 (cm/sec) Internal Carotid/Common Carotid0.9 RPTAT: AA IMPRESSION: No evidence for hemodynamically significant stenosis in the bilateral internal carotid arteries - va lidated velocity measurements with angiographic measurements, velocity criteria are extrapolated fro m diameter data as defined by the Society of Radiologists in Ultrasound Consensus Conference Radiolo gy 2003; 229;340-346. This study does indirectly reference the measurement of the distal ICA diamet er as the denominator for stenosis measurement. Normal antegrade flow in the vertebral arteries bilaterally. .Hector Tucker MD, MD Date Time Electronically viewed and signed by .Hector Tucker MD, on 06/14/2016 11:08 .S/
[2016-06-14] MEDS: NICOTINE (14 MG/24 HR) PATCH TRANSDERM SCH ×2 (11:30→17:02)
[2016-06-14] MEDS: ASPIRIN 81 MG TAB PO SCH (11:44)
[2016-06-14] MEDS: PANTOPRAZOLE (EC) 40 MG TAB PO SCH (11:44)
[2016-06-14] MEDS: BENAZEPRIL 20 MG TAB PO SCH (11:44)
[2016-06-14 12:36] LABS: CHOL/HDL RATIO 4.4 RATIO
[2016-06-14] MEDS: MULTIVITAMINS 10 ML, THIAMINE 100 MG, FOLIC ACID 1 MG in SOD CHLORIDE 0.9% 1,000 ML IVPB SCH (12:59)
[2016-06-14] MEDS: LORAZEPAM 2 MG INJ IV PRN (16:54)
[2016-06-14] MEDS ORDERED: ZOLPIDEM 5 MG TAB PO PRN (21:00)
--- NOTE | 2016-06-14 21:53 | QN ---
Documentation Comment [id number] WENDIE AVALOS MD Jun 14, 2016 21:53
[2016-06-14] MEDS ORDERED: ACETAMINOPHEN 325 MG TAB PO PRN (22:30)
[2016-06-15] VITALS (10 sets, daily range): BP systolic 96–139; BP diastolic 58–75; PULSE 81–95; RESP 20–21
[2016-06-15] MEDS: PANTOPRAZOLE (EC) 40 MG TAB PO SCH (06:07)
--- NOTE | 2016-06-15 06:23 | HP ---
DATE OF ADMISSION: 06/14/2016 HISTORY OF PRESENT ILLNESS: The patient was admitted and seen today. A 56-year -old female presented because of dizziness and headache. The patient denies any other episodes. Denies any slurred speech or weakness. The patient in the ER was noted to have blood pressure of . Hematocrit of 37.4, . Sodium 141, potassium 3.8. Troponin is negative. The patient had a carotid duplex scan done. It shows no evidence for hemodynamically significant stenosis of bilateral internal carotid arteries. Patient had CT of the brain that shows generalized age-appropriate cerebral tissue loss and nonspecific cerebral white matter disease. Chest x-ray was done, it shows interval decrease in the interstitial edema. The patient is being monitored for further management. PAST MEDICAL HISTORY: Positive for subacute CVA, dysphagia, hypertension, COPD , headaches in the past. Patient's other history includes history of herniated disk back surgery, history of chronic back pain. ALLERGY HISTORY: AMOXICILLIN, CLAVULANIC ACID, TORADOL, _ TRIMETHOPRIM. SOCIAL HISTORY: Positive for smoking. MEDICATION HISTORY: The patient is on: 1. Albuterol. 2. Benazepril. 3. Soma. 4. Temazepam. Currently she is on: see list REVIEW OF SYSTEMS HEENT: Unremarkable. RESPIRATORY: Unremarkable. CARDIOVASCULAR: Unremarkable. ABDOMEN: Unremarkable. EXTREMITIES: On and off weakness. CENTRAL NERVOUS SYSTEM: No numbness, weakness or tingling at this point. PHYSICAL EXAMINATION: GENERAL: The patient is awake and alert. VITAL SIGNS: Pulse of 107, blood pressure 140/85. HEAD: Atraumatic, normocephalic. Pupils equal, reactive to light. NECK: Supple. No JVD. LUNGS: Clear. CARDIOVASCULAR: S1, S2 normal. ABDOMEN: Soft, nontender. Bowel sounds present. No palpable mass or hepatosplenomegaly. No guarding, rebound tenderness. EXTREMITIES: There is no cyanosis, clubbing, edema. CENTRAL NERVOUS SYSTEM: The patient is awake, alert, moving both upper and lower extremities. LABORATORY DATA: As mentioned above. IMPRESSION: 1. The patient has dizziness, resolved. 2. CT brain negative. 3. History of chronic obstructive pulmonary disease. 4. Hypertension. 5. History of cerebrovascular accident. 6. History of dysphagia. PLAN: Continue the current treatment. The patient's workup for stroke is negative. The patient will have physical therapy ordered. Dictated By: WENDIE PALACIOS/ELISE Conf#: [id number] DID#: [id number] MTDD
[2016-06-15 07:43] LABS: BASOPHILS % 0.4 % (0.0-2.0); EOSINOPHILS # 0.2 10^3/ul (0.0-0.5); EOSINOPHILS % 4.3 % (0.0-7.0); HEMATOCRIT 35.8 % (37.0-47.0); HEMOGLOBIN 12.2 g/dl (12.0-16.0); LYMPHOCYTES # 1.9 10^3/ul (0.8-2.9); LYMPHOCYTES % 39.4 % (15.0-51.0); MEAN CORPUSCULAR HEMOGLOBIN 30.3 pg (29.0-33.0); MEAN CORPUSCULAR HGB CONC 34.1 g/dl (32.0-37.0); MEAN CORPUSCULAR VOLUME 88.7 fl (82.0-101.0); MEAN PLATELET VOLUME 7.9 fl (7.4-10.4); MONOCYTE # 0.2 10^3/ul (0.3-0.9); MONOCYTES % 4.5 % (0.0-11.0); NEUTROPHIL # 2.5 10^3/ul (1.6-7.5); NEUTROPHILS % 51.4 % (39.0-77.0); PLATELET COUNT 196 10^3/UL (140-440); RED BLOOD COUNT 4.04 10^6/ul (4.20-5.40); RED CELL DISTRIBUTION WIDTH 16.5 % (11.5-14.5); UNCORRECTED WBC 4.9 10^3/ul (4.8-10.8); WHITE BLOOD COUNT 4.9 10^3/ul (4.8-10.8)
[2016-06-15 08:02] LABS: CONDITION 1; LH ANALYZER COMMENTS 1
[2016-06-15 08:14] LABS: ALBUMIN 3.4 g/dl (3.3-4.9)
[2016-06-15 08:15] LABS: POTASSIUM 4.5 mmol/L (3.5-5.1)
[2016-06-15 08:17] LABS: CREATININE 0.63 mg/dl (0.44-1.00); TOTAL PROTEIN 6.8 g/dl (6.1-8.1)
[2016-06-15 08:18] LABS: CALCIUM 8.8 mg/dl (8.4-10.2)
[2016-06-15] MEDS: BENAZEPRIL 20 MG TAB PO SCH (09:00)
[2016-06-15] MEDS: ASPIRIN 81 MG TAB PO SCH (09:00)
[2016-06-15] MEDS: MULTIVITAMINS 10 ML, THIAMINE 100 MG, FOLIC ACID 1 MG in SOD CHLORIDE 0.9% 1,000 ML IVPB SCH (09:00)
[2016-06-15] MEDS: morphine 2 MG INJ IV PRN ×2 (13:42→17:49)
[2016-06-15] MEDS: LORAZEPAM 2 MG INJ IV PRN (15:33)
--- NOTE | 2016-06-15 17:32 | PDOCDIS ---
Discharge Instructions CONDITION Patient Condition: Stable HOME CARE INSTRUCTIONS: Special Diet: 2gm na ACTIVITY: Activity Restrictions: Slowly Increase Activity FOLLOW UP/APPOINTMENTS Appointments f/u own pcp [address] valente 2 wks WENDIE AVALOS MD Jun 15, 2016 17:32
[2016-06-15] MEDS ORDERED: ASPI81TA3 PO (17:33)
--- NOTE | 2016-06-15 17:35 | PN ---
Date/Time of Note Date/Time of Note DATE: 06/15/16 TIME: 17:34 Assessment/Plan VTE Prophylaxis VTE Prophylaxis Intervention: other Lines/Catheters IV C[facility]ter Type (from [facility] [place] [facility] Urinary Cath still in place: No Assessment/Plan Chief Complaint/Hosp Course IMPRESSION: 1. The patient has dizziness, resolved. 2. CT brain negative. 3. History of chronic obstructive pulmonary disease. 4. Hypertension. 5. History of cerebrovascular accident. 6. History of dysphagia. plan home if ok w dr valente Problems: Subjective 24 Hr Interval Summary Respiratory: no complaints Gastrointestinal: no complaints Neurologic: No dizziness, No focal-weakness Exam/Review of Systems Vital Signs Vitals Vital Signs Date Time Temp Pulse Resp B/P Pulse Ox O2 Delivery O2 Flow Rate FiO2 06/15/16 16:55 81 06/15/16 16:32 99.0 20 96/66 90 06/14/16 14:34 Nasal Cannula 2.0 Intake and Output 06/14/16 06/14/16 06/15/16 15:00 23:00 07:00 Intake Total 720 ml 400 ml Output Total 250 ml Balance 470 ml 400 ml Exam Neck: supple Respiratory: clear to auscultation Cardiovascular: regular rate and rhythm Gastrointestinal: soft Neurological: nl mental status, No focal weakness Results Result Diagram: 06/15/16 0655 06/15/16 0655 Results 24 hrs Laboratory Tests Test 06/14/16 18:25 06/15/16 06:55 Troponin I < 0.012 < 0.012 Alanine Aminotransferase (ALT/SGPT) 21 Albumin 3.4 Albumin/Globulin Ratio 1.00 Alkaline Phosphatase 102 Anion Gap 17 H Aspartate Amino Transf (AST/SGOT) 25 Basophils # 0.0 Basophils % 0.4 Blood Morphology Comment Blood Urea Nitrogen 6 L Calcium Level 8.8 Carbon Dioxide Level 24 Chloride Level 103 Creatinine 0.63 Direct Bilirubin 0.00 Eosinophils # 0.2 Eosinophils % 4.3 Globulin 3.40 H Glucose Level 85 Hematocrit 35.8 L Hemoglobin 12.2 Indirect Bilirubin 0.0 Lymphocytes # 1.9 Lymphocytes % 39.4 Mean Corpuscular Hemoglobin 30.3 Mean Corpuscular Hemoglobin Concent 34.1 Mean Corpuscular Volume 88.7 Mean Platelet Volume 7.9 Monocytes # 0.2 L Monocytes % 4.5 Neutrophils # 2.5 Neutrophils % 51.4 Nucleated Red Blood Cells # 0.0 Nucleated Red Blood Cells % 0.0 Platelet Count 196 Potassium Level 4.5 Red Blood Count 4.04 L Red Cell Distribution Width 16.5 H Sodium Level 139 Total Bilirubin 0.0 L Total Protein 6.8 White Blood Count 4.9 # Medications Medications Current Medications Albuterol (Ventolin Hfa) 2 puff Q4H PRN INH WHEEZING AND SOB; Start 06/14/16 at 10:30 Benazepril HCl (Lotensin) 20 mg DAILY PO Last administered on 06/14/16 11:44; Admin Dose 20 MG; Start 06/14/16 at 11:00 Carisoprodol 350 mg 350 mg Q8 PRN PO MUSCLE SPASMS; Start 06/14/16 at 09:30 Multivitamins/ Thiamine HCl/ Folic Acid/Sodium Chloride (Mvi-12 Adult/ Vitamin B1/Folic Acid/NS) 1,011.2 ml @ 125 mls/ hr DAILY@09 IVPB Last administered on 06/14/16 12:59; Admin Dose 125 MLS/HR; Start 06/14/16 at 12:00 Aspirin (Aspirin) 81 mg DAILY PO Last administered on 06/14/16 11:44; Admin Dose 81 MG; Start 06/14/16 at 11:00 Pantoprazole (Protonix Tab) 40 mg DAILY@06 PO Last administered on 06/15/16 06: 07; Admin Dose 40 MG; Start 06/14/16 at 11:00 Morphine Sulfate (morphine) 2 mg Q4H PRN IV PAIN LEVEL 6-10 Last administered on 06/15/16 13:42; Admin Dose 2 MG; Start 06/14/16 at 09:30 Lorazepam (Ativan) 0.5 mg Q6H PRN IV ANXIETY Last administered on 06/15/16 15: 33; Admin Dose 0.5 MG; Start 06/14/16 at 09:30 Nicotine (Nicoderm 14 Mg/ 24hr) 1 patch DAILY TRANSDERM Last administered on 17:02; Admin Dose 1 PATCH; Start 06/14/16 at 11:30 Acetaminophen (Tylenol Tab) 650 mg Q4H PRN PO PAIN AND OR ELEVATED TEMP; Start 06/14/16 at 22:30 WENDIE AVALOS MD Jun 15, 2016 17:35
== END 2016-06-15 19:00 | disposition home or self-care (01) | DRG 69 ==
LOC: E/R 21:04 → MS4 06-14 01:09
PROVIDERS: ADMIT Internal Medicine Nephrology; ATTEND Internal Medicine Nephrology
DX: G45.9 Transient cerebral ischemic attack, unspecified (principal); I10 Essential (primary) hypertension; Z72.0 Tobacco use; Z86.73 Personal history of transient ischemic attack (TIA), and cerebral infarction without residual deficits
CPT/HCPCS: 70450; 71010; 80048; 80053; 80061; 84484; 85025; 85610; 85730; 93005; 93880; J1200; J2060; J2270; J2405; J3411; J7030

== ENCOUNTER 2016-06-30 20:37 | Emergency (ER) | payer OTHER ==
[~2016-06-30] VITALS: Ht 157.5 cm; Wt 51.4 kg
[~2016-06-30 20:37] MED LIST changes: +ASPI81TA3 PO
[2016-06-30 20:43] VITALS: Ht 157.5 cm; Wt 51.4 kg
--- NOTE | 2016-06-30 20:49 | ERD ---
ER Documentation Chief Complaint Date/Time DATE: 06/30/16 TIME: 20:47 Chief Complaint Headache, BIBA, reported took Soma this morning HPI Patient is a 48-year-old female with a history of chronic pain who presents with headache. She was brought in by ambulance. She is well-known to our emergency department and has multiple visits to the ER for various pain type complaints. She said that her headache started this morning and is gotten worse as the day has gone on. She admits to taking Soma this morning for the pain. She does have a care plan in the emergency department information exchange system that was developed by [facility]. ROS All systems reviewed and are negative except as per history of present illness. Medications Home Meds Active Scripts Aspirin (Aspirin) 81 Mg Chew, 81 MG PO DAILY for 30 Days, TAB Prov:WENDIE AVALOS MD 06/15/16 Reported Medications Albuterol Sulfate* (Proair HFA*) 8.5 Gm Hfa.aer.ad, 2 PUFF INH Q4H Y for WHEEZING AND SOB, #1 INHALER 03/02/16 Benazepril Hcl* (Benazepril Hcl*) 20 Mg Tablet, 20 MG PO DAILY, #30 TAB 03/02/16 Carisoprodol* (Carisoprodol*) 350 Mg Tablet, 350 MG PO Q8 Y for MUSCLE SPASMS, TAB 03/02/16 Temazepam* (Temazepam*) 30 Mg Capsule, 30 MG PO HS Y for INSOMNIA, CAP 03/02/16 Allergies Allergies: Coded Allergies: sulfamethoxazole (Verified Allergy, Intermediate, HIVES, 06/05/16) trimethoprim (Verified Allergy, Intermediate, HIVES, 06/05/16) amoxicillin (Verified Allergy, Unknown, 06/05/16) clavulanic acid (Verified Allergy, Unknown, 06/05/16) ketorolac (Verified Allergy, Unknown, 06/05/16) PMhx/Soc History of Surgery: Yes (back, neck, hysterectomy, L BKA) Anesthesia Reaction: No Hx Neurological Disorder: No Hx Respiratory Disorders: No Hx Cardiac Disorders: No Hx Psychiatric Problems: No Hx Miscellaneous Medical Probl: No Hx Alcohol Use: No Hx Substance Use: No Hx Tobacco Use: Yes Smoking Status: Current every day smoker FmHx Family History: No diabetes Physical Exam Vitals Vital Signs Date Time Temp Pulse Resp B/P Pulse Ox O2 Delivery O2 Flow Rate FiO2 06/30/16 20:43 98.0 66 18 109/69 98 Physical Exam Const: No acute distress Head: Atraumatic Eyes: Normal Conjunctiva ENT: Normal External Ears, Nose and Mouth. Neck: Full range of motion..~ No meningismus. Resp: Clear to auscultation bilaterally Cardio: Regular rate and rhythm, no murmurs Abd: Soft, non tender, non distended. Normal bowel sounds Skin: No petechiae or rashes Back: No midline or flank tenderness Ext: No cyanosis, or edema Neur: Awake and alert, slurred speech consistent with intoxication with soma Procedures/MDM Patient is a 56-year-old female presents with acute on chronic pain. She has a headache. At this point I doubt stroke, intrarenal mass, or intracranial hemorrhage. I doubt meningitis. I believe outpatient management is appropriate. I believe this is an exacerbation of her chronic pain. I offered her Tylenol or Motrin she refused both. She has multiple allergies including Toradol. The patient requests narcotic medicines but per our ED care plan she will not receive narcotic medicines in the emergency department. She will need to follow-up with her primary doctor within 24-48 hours for reevaluation and could return if she has any further medical issues. Departure Diagnosis: Primary Impression: Headache Headache type: unspecified Headache chronicity pattern: acute headache Intractability: not intractable Qualified Code: R51 - Acute nonintractable headache, unspecified headache type Condition: Fair Patient Instructions: Self-Care for Headaches Referrals: CHARLA BROWN (PCP) Additional Instructions: Call your primary care doctor TOMORROW for an appointment during the next 1-2 days.See the doctor sooner or return here if your condition worsens before your appointment time. ERMA DOUGLAS MD Jun 30, 2016 20:49
== END 2016-06-30 21:22 | disposition home or self-care (01) ==
LOC: E/R 20:37
DX: R51 Headache (principal); F17.210 Nicotine dependence, cigarettes, uncomplicated; R40.2142 Coma scale, eyes open, spontaneous, at arrival to emergency department; R40.2252 Coma scale, best verbal response, oriented, at arrival to emergency department; R40.2362 Coma scale, best motor response, obeys commands, at arrival to emergency department; Z79.82 Long term (current) use of aspirin
CPT/HCPCS: 99283

== ENCOUNTER 2016-07-02 18:26 | Emergency (ER) | payer OTHER ==
[~2016-07-02] VITALS: Wt 52.0 kg
[2016-07-02] MEDS ORDERED: ACETAMINOPHEN 325 MG TAB PO STA (20:25)
[2016-07-02] MEDS ORDERED: ACET325T33 PO (20:30)
--- NOTE | 2016-07-02 20:44 | ERD ---
ER Documentation Chief Complaint Date/Time DATE: 07/02/16 TIME: 20:43 Chief Complaint Pt with GRULLON and dizziness since last night. HPI This is a 56-year-old female presenting to the emergency department who has been here numerous times for same complaint and well-known by staff complaining of chronic headache and dizziness. Patient states the pain is moderate in severity. Patient states that she has Soma at home. She denies any neuro deficits. Denies any for blurry vision ROS All systems reviewed and are negative except as per history of present illness. Medications Home Meds Active Scripts Acetaminophen* (Tylenol*) 325 Mg Tablet, 2 TAB PO Q4 Y for PAIN AND OR ELEVATED TEMP, #30 TAB Prov:SALBADOR LOPEZ PA-C 07/02/16 Aspirin (Aspirin) 81 Mg Chew, 81 MG PO DAILY for 30 Days, TAB Prov:WENDIE AVALOS MD 06/15/16 Reported Medications Albuterol Sulfate* (Proair HFA*) 8.5 Gm Hfa.aer.ad, 2 PUFF INH Q4H Y for WHEEZING AND SOB, #1 INHALER 03/02/16 Benazepril Hcl* (Benazepril Hcl*) 20 Mg Tablet, 20 MG PO DAILY, #30 TAB 03/02/16 Carisoprodol* (Carisoprodol*) 350 Mg Tablet, 350 MG PO Q8 Y for MUSCLE SPASMS, TAB 03/02/16 Temazepam* (Temazepam*) 30 Mg Capsule, 30 MG PO HS Y for INSOMNIA, CAP 03/02/16 Allergies Allergies: Coded Allergies: sulfamethoxazole (Verified Allergy, Intermediate, HIVES, 06/05/16) trimethoprim (Verified Allergy, Intermediate, HIVES, 06/05/16) amoxicillin (Verified Allergy, Unknown, 06/05/16) clavulanic acid (Verified Allergy, Unknown, 06/05/16) ketorolac (Verified Allergy, Unknown, 06/05/16) PMhx/Soc History of Surgery: Yes (back, neck, hysterectomy, L BKA) Anesthesia Reaction: No Hx Neurological Disorder: No Hx Respiratory Disorders: No Hx Cardiac Disorders: No Hx Psychiatric Problems: No Hx Miscellaneous Medical Probl: No Hx Alcohol Use: No Hx Substance Use: No Hx Tobacco Use: Yes Smoking Status: Current every day smoker Physical Exam Vitals Vital Signs Date Time Temp Pulse Resp B/P Pulse Ox O2 Delivery O2 Flow Rate FiO2 07/02/16 18:46 96.7 108 20 128/90 94 Physical Exam Const: Head: Atraumatic Eyes: Normal Conjunctiva ENT: Normal External Ears, Nose and Mouth. Neck: Full range of motion..~ No meningismus. Resp: Clear to auscultation bilaterally Cardio: Regular rate and rhythm, no murmurs Abd: Soft, non tender, non distended. Normal bowel sounds Skin: No petechiae or rashes Back: No midline or flank tenderness Ext: No cyanosis, or edema Neur: Awake and alert Psych: Normal Mood and Affect Results 24 hrs Current Medications Medications (Trade) Dose Ordered Sig/Migel Route PRN Reason Start Time Stop Time Status Last Admin Dose Admin Acetaminophen (Tylenol Tab) 650 mg ONCE STAT PO 07/02/16 20:25 07/02/16 20:26 DC Procedures/MDM This is a 56-year-old female presenting to the emergency department was been here numerous times before for chronic headache and dizziness. Patient recently had evaluation including CT brain without contrast on June 14 which did not show any mass-effect or midline shift. Patient had a carotid Doppler done on June 14 which was unremarkable. Patient had a normal neurological exam. I doubt subarachnoid hemorrhage, meningitis, stroke. Pain relief was given in the ED with some improvement. I don't recommend a CT scan at this time. I have reviewed patient's past chart, patient is not suitable for any narcotics. I have offered to give her Tylenol however she refused. I discussed to follow-up with her primary care physician and to return to the ER for any worsening symptoms. I have discussed that she likely has overuse headaches from chronic Soma use. She understood and agree with this plan. She is hematuria stable and neurovascular intact. was consulted and he agreed with plan above Departure Diagnosis: Primary Impression: Headache Condition: Fair Patient Instructions: Self-Care for Headaches Referrals: CHARLA BROWN (PCP) Additional Instructions: FOLLOW UP WITH YOUR PRIMARY CARE PHYSICIAN TOMORROW.Return to this facility if you are not improving as expected. Return to this facility if you are not improving as expected. SALBADOR LOPEZ PA-C Jul 02, 2016 20:44
== END 2016-07-02 21:35 | disposition home or self-care (01) ==
LOC: FTE 18:26
DX: R51 Headache (principal); F17.210 Nicotine dependence, cigarettes, uncomplicated; Z79.82 Long term (current) use of aspirin
CPT/HCPCS: Z7502; Z7610; 99283

== ENCOUNTER 2016-07-31 14:34 | Emergency (ER) | payer OTHER ==
[~2016-07-31] VITALS: Ht 160 cm; Wt 65.0 kg
[~2016-07-31 14:34] MED LIST changes: +ACET325T33 PO
[2016-07-31 14:45] VITALS: Ht 160 cm; Wt 65.0 kg
--- NOTE | 2016-07-31 15:03 | ERD ---
ER Documentation Chief Complaint Date/Time DATE: 07/31/16 TIME: 14:59 Chief Complaint fall from the wheelchair today HPI Patient is a 56-year-old female with a history of chronic pain who presents saying that she fell today. She said that she fell out of the hospital but recently and hit her head. She had stitches at that time. She said that happened yesterday. She said that she fell again today. She did not lose consciousness. She said that she feels off balance. She also says that she has right-sided shoulder pain. She says "I do not have any pain meds at home". She does have a primary doctor but has not called the doctor as of yet. She was brought in by ambulance. Upon review of old medical records the patient has multiple visits to the ER for various complaints. Review of the emergency department information exchange shows a care plan as well as visits to 3 different emergency departments. She is well-known to myself and to our staff. ROS All systems reviewed and are negative except as per history of present illness. Medications Home Meds Active Scripts Acetaminophen* (Tylenol*) 325 Mg Tablet, 2 TAB PO Q4 Y for PAIN AND OR ELEVATED TEMP, #30 TAB Prov:SALBADOR LOPEZ PA-C 07/02/16 Aspirin (Aspirin) 81 Mg Chew, 81 MG PO DAILY for 30 Days, TAB Prov:WENDIE AVALOS MD 06/15/16 Reported Medications Albuterol Sulfate* (Proair HFA*) 8.5 Gm Hfa.aer.ad, 2 PUFF INH Q4H Y for WHEEZING AND SOB, #1 INHALER 03/02/16 Benazepril Hcl* (Benazepril Hcl*) 20 Mg Tablet, 20 MG PO DAILY, #30 TAB 03/02/16 Carisoprodol* (Carisoprodol*) 350 Mg Tablet, 350 MG PO Q8 Y for MUSCLE SPASMS, TAB 03/02/16 Temazepam* (Temazepam*) 30 Mg Capsule, 30 MG PO HS Y for INSOMNIA, CAP 03/02/16 Allergies Allergies: Coded Allergies: sulfamethoxazole (Verified Allergy, Intermediate, HIVES, 06/05/16) trimethoprim (Verified Allergy, Intermediate, HIVES, 06/05/16) amoxicillin (Verified Allergy, Unknown, 06/05/16) clavulanic acid (Verified Allergy, Unknown, 06/05/16) ketorolac (Verified Allergy, Unknown, 06/05/16) PMhx/Soc History of Surgery: Yes (back, neck, hysterectomy, L BKA) Anesthesia Reaction: No Hx Neurological Disorder: No Hx Respiratory Disorders: No Hx Cardiac Disorders: No Hx Psychiatric Problems: No Hx Miscellaneous Medical Probl: No Hx Alcohol Use: No Hx Substance Use: No Hx Tobacco Use: Yes FmHx Family History: No diabetes Physical Exam Vitals Vital Signs Date Time Temp Pulse Resp B/P Pulse Ox O2 Delivery O2 Flow Rate FiO2 07/31/16 14:45 97.8 72 18 139/68 98 Physical Exam Const: Mild distress Head: Atraumatic Eyes: Bruising above the right eye which appears old ENT: Bruising and swelling to the right base which appears to be a few days old Neck: Full range of motion..~ No meningismus. Resp: Clear to auscultation bilaterally Cardio: Regular rate and rhythm, no murmurs Abd: Soft, non tender, non distended. Normal bowel sounds Skin: No petechiae or rashes Back: No midline or flank tenderness Ext: No sign of step-off or deformity in either shoulder Neur: Awake and alert Psych: Depressed affect is her normal baseline Procedures/MDM Smoking Cessation Therapy: Pt. was lectured for greater than 3 minutes on the health risks of continued smoking and the benefits of cessation. Patient is a 56-year-old female with a history of chronic pain who presents with pain of her face and shoulder. She said that she fell out of a hospital bed and then out of her wheelchair. At this point I do not believe she has serious intracranial hemorrhage or skull fracture. I do not believe she requires imaging studies at this time and I feel the risks of radiation outweigh the benefits. I have seen her in the emergency department for similar type complaints in the past and I do believe that she is pain seeking. Given our opioid pain policy here at [facility] I would not give her any narcotic medicines nor will she get any prescriptions for any narcotic medicines. She does not want prescriptions for Tylenol or Motrin which I offered. She can follow-up with her primary doctor within 24-48 hours and can return for any worsening symptoms. Departure Diagnosis: Primary Impression: Fall Encounter type: initial encounter Qualified Code: W19.XXXA - Fall, initial encounter Additional Impression: Shoulder pain Laterality: right Chronicity: acute Qualified Code: M25.511 - Acute pain of right shoulder Condition: Fair Patient Instructions: Fall, Mechanical, Shoulder Contusion Referrals: CHARLA BROWN (PCP) Additional Instructions: Call your primary care doctor TOMORROW for an appointment during the next 1-2 days.See the doctor sooner or return here if your condition worsens before your appointment time. ERMA DOUGLAS MD Jul 31, 2016 15:03
== END 2016-07-31 14:51 | disposition home or self-care (01) ==
LOC: E/R 14:34
DX: S49.91XA Unspecified injury of right shoulder and upper arm, initial encounter (principal); V00.811A Fall from moving wheelchair (powered), initial encounter; Y92.239 Unspecified place in hospital as the place of occurrence of the external cause; Z79.82 Long term (current) use of aspirin; Z87.891 Personal history of nicotine dependence
CPT/HCPCS: 99282

== ENCOUNTER 2016-08-03 15:00 | Emergency (ER) | payer OTHER ==
[~2016-08-03] VITALS: Wt 65.0 kg
[2016-08-03] MEDS ORDERED: PRED20TA PO (16:44)
[2016-08-03] MEDS ORDERED: ALBU8.5H3 INH (16:44)
--- NOTE | 2016-08-03 16:49 | ERD ---
ER Documentation Chief Complaint Date/Time DATE: 08/03/16 TIME: 16:45 Chief Complaint sob and coughing for a few days and r side pain and headache HPI 56-year-old woman brought in by EMS for shortness of breath and complaints of anxiety. She was wheezing at the scene and they administered albuterol there and en route with improvement in her symptoms. Patient is requesting lorazepam. She denies fevers or chills, no calf or leg swelling, no chest pain , no fevers or chills. Patient denies dysuria. ROS All systems reviewed and are negative except as per history of present illness. Medications Home Meds Active Scripts Prednisone* (Prednisone*) 20 Mg Tab, 40 MG PO DAILY for 4 Days, TAB Prov:ASHLEE HINTON MD 08/03/16 Albuterol Sulfate* (Proair HFA*) 8.5 Gm Hfa.aer.ad, 2 PUFF INH Q6H Y for WHEEZING AND SOB, #1 INHALER Prov:ASHLEE HINTON MD 08/03/16 Acetaminophen* (Tylenol*) 325 Mg Tablet, 2 TAB PO Q4 Y for PAIN AND OR ELEVATED TEMP, #30 TAB Prov:SALBADOR LOPEZ PA-C 07/02/16 Aspirin (Aspirin) 81 Mg Chew, 81 MG PO DAILY for 30 Days, TAB Prov:WENDIE AVALOS MD 06/15/16 Reported Medications Albuterol Sulfate* (Proair HFA*) 8.5 Gm Hfa.aer.ad, 2 PUFF INH Q4H Y for WHEEZING AND SOB, #1 INHALER 03/02/16 Benazepril Hcl* (Benazepril Hcl*) 20 Mg Tablet, 20 MG PO DAILY, #30 TAB 03/02/16 Carisoprodol* (Carisoprodol*) 350 Mg Tablet, 350 MG PO Q8 Y for MUSCLE SPASMS, TAB 03/02/16 Temazepam* (Temazepam*) 30 Mg Capsule, 30 MG PO HS Y for INSOMNIA, CAP 03/02/16 Allergies Allergies: Coded Allergies: sulfamethoxazole (Verified Allergy, Intermediate, HIVES, 06/05/16) trimethoprim (Verified Allergy, Intermediate, HIVES, 06/05/16) amoxicillin (Verified Allergy, Unknown, 06/05/16) clavulanic acid (Verified Allergy, Unknown, 06/05/16) ketorolac (Verified Allergy, Unknown, 06/05/16) PMhx/Soc Chronic pain, chronic anxiety, COPD on home oxygen, hypertension, history of CVA , left lower extremity amputation History of Surgery: Yes (back, neck, hysterectomy, L BKA) Anesthesia Reaction: No Hx Neurological Disorder: No Hx Respiratory Disorders: No Hx Cardiac Disorders: No Hx Psychiatric Problems: No Hx Miscellaneous Medical Probl: No Hx Alcohol Use: No Hx Substance Use: No Hx Tobacco Use: Yes Smoking Status: Current every day smoker FmHx Family History: No diabetes Physical Exam Vitals Vital Signs Date Time Temp Pulse Resp B/P Pulse Ox O2 Delivery O2 Flow Rate FiO2 08/03/16 16:00 Nasal Cannula 2.0 08/03/16 15:15 98.8 115 22 154/88 95 Physical Exam GENERAL: Well-developed, well-nourished, anxious and initially cantankerous HEENT: Moist mucous membranes, pink conjunctiva, no cervical spine tenderness or step-off deformities, no goiter, no jaundice or icterus, extraocular movements intact without pain. No submandibular induration, and no pharyngeal erythema NEURO: Alert and oriented 3, cranial nerves II through XII intact bilaterally, pupils equal round reactive to light, no focal deficits or facial asymmetry, sensation intact distally Strength 5/5 in upper and lower extremities bilaterally CARDIAC: Regular rate and rhythm, no murmurs rubs or gallops LUNGS: Scattered mild wheezes, no crackles or stridor ABDOMEN: Soft nontender, no guarding, no rigidity, no rebound, no psoas sign no obturator sign. Normoactive bowel sounds SKIN: Warm and dry to touch, no abrasions, contusions, or hematomas, no lacerations, no ecchymosis, no target lesions, and without ulcers EXTREMITIES: Positive left lower extremity amputation, Distal pulses equal and bilateral PSYCH: Anxious Results 24 hrs Current Medications Medications (Trade) Dose Ordered Sig/Migel Route PRN Reason Start Time Stop Time Status Last Admin Dose Admin Lorazepam (Ativan) 0.5 mg ONCE ONCE PO 08/03/16 17:00 08/03/16 17:01 DC 08/03/16 16:52 Procedures/MDM Patient was treated with albuterol 10 mg via nebulizer, for her symptoms she also received lorazepam 0.5 mg p.o. After our intervention in the ED her resting oxygen on room air was between 95 and 96%, patient does use low flow oxygen at home for chronic COPD. I will defer imaging as patient has had over 2-3 dozen x-rays and CT scans over the last few years. Differential diagnoses considered, included but not limited to acute coronary syndrome, pulmonary embolism, aortic dissection, abdominal aortic aneurysm, sepsis, stroke, meningitis, encephalitis, pneumonia, appendicitis, cholecystitis , bowel obstruction, pyelonephritis, nephrolithiasis, cystitis, as well as metabolic, hematologic, and electrolyte abnormalities. As well as abscess, cellulitis, fractures, and dislocations. Patient feels much better at this time, and vital signs are normal, symptoms have improved. I did give strict instructions to return to the ED if symptoms continue or worsen, patient will otherwise follow-up with primary care physician. Patient understood instructions and agreed to plan. Departure Diagnosis: Primary Impression: Anxiety Additional Impressions: Chronic pain Chronic pain type: chronic pain syndrome Qualified Code: G89.4 - Chronic pain syndrome COPD exacerbation Condition: Good Patient Instructions: Anxiety Reaction, Copd Flare ASHLEE HINTON MD Aug 03, 2016 16:48
[2016-08-03] MEDS ORDERED: LORAZEPAM 0.5 MG TAB PO ONE (17:00)
== END 2016-08-03 17:42 | disposition home or self-care (01) ==
LOC: E/R 15:00
DX: F41.9 Anxiety disorder, unspecified (principal); G89.4 Chronic pain syndrome; J44.1 Chronic obstructive pulmonary disease with (acute) exacerbation; F17.210 Nicotine dependence, cigarettes, uncomplicated; Z79.82 Long term (current) use of aspirin
CPT/HCPCS: 99284

== ENCOUNTER 2016-08-22 19:57 | Emergency (ER) | payer OTHER ==
[~2016-08-22] VITALS: Ht 167.6 cm; Wt 65.0 kg
[~2016-08-22 19:57] MED LIST changes: +PRED20TA PO
[2016-08-22 20:11] VITALS: Ht 167.6 cm; Wt 65.0 kg
--- NOTE | 2016-08-22 20:57 | ERD ---
ER Documentation Chief Complaint Date/Time DATE: 08/22/16 TIME: 20:55 Chief Complaint sp fall from bed, c/o- facial pain, back pain, left arm pain, homeless bib HPI 56-year-old homeless female who presents the emergency room complaining of head pain requesting IV or IM injection of pain medication. The patient states that yesterday she fell out of bed and hit her head. She denies losing consciousness. Patient describes a mild headache. She denies any numbness or weakness. At triage she noted back pain and arm pain but denies this to me. No chest pain. The patient is requesting IV or IM narcotics and benzodiazepines. ROS All systems reviewed and are negative except as per history of present illness. Medications Home Meds Active Scripts Prednisone* (Prednisone*) 20 Mg Tab, 40 MG PO DAILY for 4 Days, TAB Prov:ASHLEE HINTON MD 08/03/16 Albuterol Sulfate* (Proair HFA*) 8.5 Gm Hfa.aer.ad, 2 PUFF INH Q6H Y for WHEEZING AND SOB, #1 INHALER Prov:ASHLEE HINTON MD 08/03/16 Acetaminophen* (Tylenol*) 325 Mg Tablet, 2 TAB PO Q4 Y for PAIN AND OR ELEVATED TEMP, #30 TAB Prov:SALBADOR LOPEZ PA-C 07/02/16 Aspirin (Aspirin) 81 Mg Chew, 81 MG PO DAILY for 30 Days, TAB Prov:WENDIE AVALOS MD 06/15/16 Reported Medications Albuterol Sulfate* (Proair HFA*) 8.5 Gm Hfa.aer.ad, 2 PUFF INH Q4H Y for WHEEZING AND SOB, #1 INHALER 03/02/16 Benazepril Hcl* (Benazepril Hcl*) 20 Mg Tablet, 20 MG PO DAILY, #30 TAB 03/02/16 Carisoprodol* (Carisoprodol*) 350 Mg Tablet, 350 MG PO Q8 Y for MUSCLE SPASMS, TAB 03/02/16 Temazepam* (Temazepam*) 30 Mg Capsule, 30 MG PO HS Y for INSOMNIA, CAP 03/02/16 Allergies Allergies: Coded Allergies: sulfamethoxazole (Verified Allergy, Intermediate, HIVES, 06/05/16) trimethoprim (Verified Allergy, Intermediate, HIVES, 06/05/16) amoxicillin (Verified Allergy, Unknown, 06/05/16) clavulanic acid (Verified Allergy, Unknown, 06/05/16) ketorolac (Verified Allergy, Unknown, 06/05/16) PMhx/Soc History of Surgery: Yes (back, neck, hysterectomy, L BKA) Anesthesia Reaction: No Hx Neurological Disorder: No Hx Respiratory Disorders: No Hx Cardiac Disorders: No Hx Psychiatric Problems: No Hx Miscellaneous Medical Probl: No Hx Alcohol Use: No Hx Substance Use: No Hx Tobacco Use: Yes Smoking Status: Current every day smoker FmHx Family History: No diabetes Physical Exam Vitals Vital Signs Date Time Temp Pulse Resp B/P Pulse Ox O2 Delivery O2 Flow Rate FiO2 08/22/16 20:11 98.6 88 20 133/80 98 Physical Exam General: Disheveled, malodorous, in usual state of health Head: Normocephalic, atraumatic, no evidence of trauma Eyes: Pupils equally reactive, EOM intact ENT: Moist mucous membranes Neck: Supple, no lymphadenopathy, No midline tenderness, deformities, step-offs to the cervical spine, full active and passive range of motion without midline pain. Respiratory: Lungs clear bilaterally, no distress Cardiovascular: RRR, no murmurs, rubs, or gallops Abdominal: Soft, non-tender, non-distended, no peritoneal signs : Deferred MSK: No edema, no unilateral swelling, 5/5 strength, left lower extremity BKA Neurologic: Alert and oriented, moving all extremities, normal speech, no focal weakness, no cerebellar signs Skin: No rash Psych: Normal mood Procedures/MDM A combination of electronic medical record review, [facility] database review and patient behavior in the emergency room are concerning for drug-seeking and/or narcotic dependence behavior. In my opinion further use of IV or IM narcotics in this patient is not warranted unless clinical scenario changes. In addition , we should use caution prescribing chronic narcotic and/or benzodiazepine medications from the emergency room. A single provider should be dispensing this type of medication. The patient was informed. The patient demanded IV and IM narcotics. I offered oral pain medication and benzodiazepine. The patient refused. I recommended CT imaging of the brain. The patient refuses. She states if your doctor to give me IV pain medication I would like a taxi voucher to go home. The patient is refusing CT imaging, further investigation. The patient verbalizes understanding. She has capacity. I believe her reason for visit is consistent with drug-seeking behavior. Patient discharged from the emergency room. Departure Diagnosis: Primary Impression: Chronic pain Chronic pain type: chronic pain syndrome Qualified Code: G89.4 - Chronic pain syndrome Additional Impression: Drug-seeking behavior Condition: Stable Patient Instructions: Chronic Pain MARCEL FISHER MD Aug 22, 2016 20:57
[2016-08-22] MEDS ORDERED: LORAZEPAM 1 MG TAB PO ONE (21:30)
== END 2016-08-22 21:04 | disposition home or self-care (01) ==
LOC: E/R 19:57
DX: G89.4 Chronic pain syndrome (principal); F17.210 Nicotine dependence, cigarettes, uncomplicated; R40.2142 Coma scale, eyes open, spontaneous, at arrival to emergency department; R40.2362 Coma scale, best motor response, obeys commands, at arrival to emergency department; R40.2252 Coma scale, best verbal response, oriented, at arrival to emergency department; Z72.89 Other problems related to lifestyle; Z79.82 Long term (current) use of aspirin
CPT/HCPCS: Z7502; Z7610; 99283

== ENCOUNTER 2016-09-19 11:03 | Emergency (ER) | payer OTHER ==
[~2016-09-19] VITALS: Wt 59.0 kg
[2016-09-19] MEDS ORDERED: morphine 2 MG INJ IV STA (11:44)
[2016-09-19] MEDS ORDERED: DIPHENHYDRAMINE 50 MG INJ IM ONE (12:00)
[2016-09-19 12:23] LABS: ADD SCAN DIFF NO
[2016-09-19 12:25] LABS: BASOPHILS % 0.4 % (0.0-2.0); EOSINOPHILS # 0.3 10^3/ul (0.0-0.5); EOSINOPHILS % 3.6 % (0.0-7.0); HEMATOCRIT 37.5 % (37.0-47.0); HEMOGLOBIN 11.6 g/dl (12.0-16.0); LYMPHOCYTES # 3.4 10^3/ul (0.8-2.9); LYMPHOCYTES % 42.3 % (15.0-51.0); MEAN CORPUSCULAR HEMOGLOBIN 28.5 pg (29.0-33.0); MEAN CORPUSCULAR HGB CONC 30.9 g/dl (32.0-37.0); MEAN CORPUSCULAR VOLUME 92.1 fl (82.0-101.0); MEAN PLATELET VOLUME 9.5 fl (7.4-10.4); MONOCYTE # 0.4 10^3/ul (0.3-0.9); MONOCYTES % 5.3 % (0.0-11.0); NEUTROPHIL # 3.8 10^3/ul (1.6-7.5); PLATELET COUNT 245 10^3/UL (140-415); RED BLOOD COUNT 4.07 10^6/ul (4.20-5.40); RED CELL DISTRIBUTION WIDTH 15.5 % (11.5-14.5)
[2016-09-19 12:39] LABS: CHLORIDE 102 mmol/L (97-110); POTASSIUM 4.6 mmol/L (3.5-5.1); SODIUM 140 mmol/L (135-144)
[2016-09-19 12:42] LABS: ANION GAP 16 (8-16); BLOOD UREA NITROGEN 13 mg/dl (7-20); CARBON DIOXIDE 27 mmol/L (21-31); CREATININE 0.76 mg/dl (0.44-1.00); GLUCOSE 92 mg/dl (70-220)
--- NOTE | 2016-09-19 12:44 | RADRPT ---
PROCEDURE: Chest Radiograph. CLINICAL INDICATION: Chest pain TECHNIQUE: Single frontal chest radiograph. COMPARISON: Chest radiograph 06/13/2016 FINDINGS: The cardiomediastinal silhouette is within normal limits. There is a diffuse interstitial prominenc e which is stable compared to prior study and nonspecific. Chronic lung changes, pulmonary edema, o r interstitial infiltrates could have this appearance. The lungs are otherwise clear. No confluent or lobar infiltrate is seen. No pleural effusion is identified. Cervical spinal hardware is in p lace. The bones are otherwise intact. IMPRESSION: 1. Diffuse interstitial prominence which is nonspecific and stable compared to 06/13/2016. 2. No evidence of acute cardiopulmonary disease. RPTAT: KK .Alex Reeves MD, MD Date Time Electronically viewed and signed by .Alex Reeves MD, on 09/19/2016 12:44 .B/
[2016-09-19 12:46] LABS: INR 0.9; PROTIME 12.1 Sec (12.2-14.2); PT RATIO 0.9
[2016-09-19 12:47] LABS: PARTIAL THROMBOPLASTIN TIME 31.1 Sec (25.0-35.0)
[2016-09-19 12:54] LABS: TROPONIN-I < 0.012 ng/ml (0.00-0.12)
[2016-09-19] MEDS: ACETAMINOPHEN 500 MG TAB PO STA ×2 (13:19→13:43)
--- NOTE | 2016-09-19 13:29 | RADRPT ---
PROCEDURE: CT cervical spine without contrast. CLINICAL INDICATION: Trauma TECHNIQUE: Axial imaging was obtained through the cervical spine using a multi-slice CT scanner. [facility] scan of the cervical spine without contrast protocols were performed. CTDI: 26.32 and DLP: 479.8. One or more of the following dose reduction techniques were used: - Automated exposure control. - Adjustment of the mA and/or kV according to patient size. Use of iterative reconstruction technique. COMPARISON: None. FINDINGS: The patient is status post anterior fixation of the C4-C7 vertebral levels in good position without interruption. The patient is status post posterior fixation involving the C1-T1 vertebral levels wi thout interruption and in good position. The patient is status post C2-C7 laminectomies. There are interbody disk spacers involving the C4-5 C5-6 and C6-7 disk levels. There is no evidence of acute fractures or subluxations. No evidence of central spinal canal stenosis. There is narrowing of th e right and left C3-4 C4-5 and C5-6 neural foramina. Moderate degenerate disease of the C7-T1 disk. Mild spondylosis of the C2-C3 and C7-T1 vertebral levels. There is no evidence of prevertebral soft tissue swelling. The soft tissues of the neck are unremarkable. There is central lobular emphysem a involving the lung apices with apical pleural parenchymal scarring. No evidence of apical pneumot horax. IMPRESSION: 1. Status post C2-C7 laminectomies with anterior and posterior fixation and fusion as described abo ve without evidence of acute fractures or subluxations. 2. Degenerative changes in neural foraminal narrowing as described above. No evidence of central s margaret canal stenosis. 3. COPD and pleural parenchymal scarring involving the lung apices as described above. RPTAT:AAJJ Physician John Date Time Electronically viewed and signed by Physician John on 09/19/2016 13:29 /
--- NOTE | 2016-09-19 13:47 | RADRPT ---
PROCEDURE: CT Brain without contrast. CLINICAL INDICATION: Trauma TECHNIQUE: CT scan of the brain was performed on a multidetector high-resolution CT scan. Axial im aging was obtained of the brain without contrast administration. Coronal and sagittal reformatted i mages were obtained from the axial source images. Standard CT scan of the head without contrast prot ocols were performed. The total exam CTDI equals 44.68 mGy and the total exam DLP equals 720.23 mGy-cm. One or more of the following dose reduction techniques were used: - Automated exposure control. - Adjustment of the mA and/or kV according to patient size. Use of iterative reconstruction technique. COMPARISON: CT head without contrast 06/13/2016 FINDINGS: There is no significant change. Negative for intracranial masses hemorrhages or midline shift. The re is mild to moderate periventricular and subcortical deep white matter changes slightly more promi nent on the left consistent with chronic microvascular ischemic changes. The jennings-white matter junc tion is unremarkable. Ventricular system is normal in size. The bones and calvarium are intact. A gain noted is upper cervical fusion and recommend reference to the CT scan of the cervical spine rep ort on the same day. There is chronic sphenoid sinus disease. The right frontal sinus is hypoplast ic. Remainder the paranasal sinuses and mastoids are unremarkable. IMPRESSION: 1. No significant interval change. 2. No evidence of intracranial masses hemorrhages or midline shift. 3. Mild to moderate nonspecific chronic microvascular ischemic changes. RPTAT:AAJJ Physician John Date Time Electronically viewed and signed by Physician John on 09/19/2016 13:47 BM/
--- NOTE | 2016-09-19 13:57 | RADRPT ---
PROCEDURE: CT thoracic spine without contrast CLINICAL INDICATION: Trauma TECHNIQUE: Axial imaging was obtained through the lumbar spine using a multi-slice CT scanner. [facility] CT scan of the thoracic spine without contrast protocols were performed. CTDI: 11.25 and DLP: 455.32. One or more of the following dose reduction techniques were used: - Automated exposure control. - Adjustment of the mA and/or kV according to patient size. Use of iterative reconstruction technique. COMPARISON: None. FINDINGS: There is posterior fixation of the lower cervical and T1 vertebral level as well as a anterior fixat ion of the lower cervical spine. Recommend reference is a CT scan of the cervical spine report done the same day. There is mild chronic anterior wedging of the T9 vertebral body with a prominent Schm orl's node involving the superior T9 endplate. A prominent Schmorl's node involving the superior T1 1 endplate. There are no acute fractures or subluxations. The bony mineralization is normal. No f ocal bony blastic or lytic lesions. There is moderate spondylosis involving mid and lower thoracic and upper lumbar spine. The posterior elements are intact. No evidence of central spinal canal or neural foraminal stenosis. No paraspinous masses. There is atherosclerosis of the aorta but no harman dence of aneurysm those portions visualized. COPD and chronic bilateral parenchymal lung disease. IMPRESSION: 1. Recommend reference CT scan of the cervical spine report done the same day indicating postoperat humera changes involving the lower cervical and upper thoracic spine. 2. No evidence of acute fractures subluxations central spinal canal or neural foraminal stenosis. C hronic mild anterior wedging of the T9 vertebral body. 3. Degenerate changes as described above. 4. COPD and chronic interstitial lung disease. RPTAT:AAJJ Physician John Date Time Electronically viewed and signed by Physician John on 09/19/2016 13:57 /
[2016-09-19] MEDS ORDERED: TYL500 PO (14:20)
[2016-09-19] MEDS ORDERED: TRAM50TA2 PO (14:22)
--- NOTE | 2016-09-19 14:35 | ERD ---
ER Documentation Chief Complaint Date/Time DATE: 09/19/16 TIME: 14:27 Chief Complaint back pain s/p glf inside restroom, no ko HPI This 56-year-old female presented emergency room after she given herself a bath and climbed out of the bathtub and fell to the bathroom floor. She says on the toilet she did strike her head as well as her upper back. She denies pain in any other part of her body. 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 She does complain of chronic right foot numbness and believes this contributed to her tripping. She denies any chest pain, dizziness , lightheadedness prior to the fall. She says she has had a history of 3 strokes although she does not feel any focal neurological weakness or like she has had a recent stroke. States that she has good primary care follow-up and has an appointment with her doctor on Sunday. ROS All systems reviewed and are negative except as per history of present illness. Medications Home Meds Active Scripts Tramadol HCl (Tramadol HCl) 50 Mg Tablet, 50 MG PO Q6, #12 TAB Prov:DEAN GILBERT DO 09/19/16 Acetaminophen* (Tylenol*) 500 Mg Tab, 1000 MG PO Q6 Y for PAIN AND OR ELEVATED TEMP, #20 TAB Prov:DEAN GILBERT DO 09/19/16 Prednisone* (Prednisone*) 20 Mg Tab, 40 MG PO DAILY for 4 Days, TAB Prov:ASHLEE HINTON MD 08/03/16 Albuterol Sulfate* (Proair HFA*) 8.5 Gm Hfa.aer.ad, 2 PUFF INH Q6H Y for WHEEZING AND SOB, #1 INHALER Prov:ASHLEE HINTON MD 08/03/16 Acetaminophen* (Tylenol*) 325 Mg Tablet, 2 TAB PO Q4 Y for PAIN AND OR ELEVATED TEMP, #30 TAB Prov:SALBADOR LOPEZ PA-C 07/02/16 Aspirin (Aspirin) 81 Mg Chew, 81 MG PO DAILY for 30 Days, TAB Prov:WENDIE AVALOS MD 06/15/16 Reported Medications Albuterol Sulfate* (Proair HFA*) 8.5 Gm Hfa.aer.ad, 2 PUFF INH Q4H Y for WHEEZING AND SOB, #1 INHALER 03/02/16 Benazepril Hcl* (Benazepril Hcl*) 20 Mg Tablet, 20 MG PO DAILY, #30 TAB 03/02/16 Carisoprodol* (Carisoprodol*) 350 Mg Tablet, 350 MG PO Q8 Y for MUSCLE SPASMS, TAB 03/02/16 Temazepam* (Temazepam*) 30 Mg Capsule, 30 MG PO HS Y for INSOMNIA, CAP 03/02/16 Allergies Allergies: Coded Allergies: sulfamethoxazole (Verified Allergy, Intermediate, HIVES, 06/05/16) trimethoprim (Verified Allergy, Intermediate, HIVES, 06/05/16) amoxicillin (Verified Allergy, Unknown, 06/05/16) clavulanic acid (Verified Allergy, Unknown, 06/05/16) ketorolac (Verified Allergy, Unknown, 06/05/16) PMhx/Soc History of Surgery: Yes (back, neck, hysterectomy, L BKA) Anesthesia Reaction: No Hx Neurological Disorder: No Hx Respiratory Disorders: No Hx Cardiac Disorders: No Hx Psychiatric Problems: No Hx Miscellaneous Medical Probl: No Hx Alcohol Use: No Hx Substance Use: No Hx Tobacco Use: Yes Smoking Status: Current every day smoker Physical Exam Vitals Vital Signs Date Time Temp Pulse Resp B/P Pulse Ox O2 Delivery O2 Flow Rate FiO2 09/19/16 11:06 96.8 93 18 114/74 97 Physical Exam Const: [] No distress Head: Atraumatic Eyes: Normal Conjunctiva ENT: Normal External Ears, Nose and Mouth. Neck: Full range of motion..~ No meningismus. Resp: Clear to auscultation bilaterally Cardio: Regular rate and rhythm, no murmurs Abd: Soft, non tender, non distended. Normal bowel sounds Skin: No petechiae or rashes Back: No midline or flank tenderness, right-sided paraspinal muscle tenderness just medial to the scapula approximately T5 or 6 with no deformity, skin is normal in appearance. Ext: No cyanosis, or edema, left BKA, distal pulses intact right foot with no deformity or injury, distal pulses intact of wrist as well. No pain in internal and external rotation of hips or pain on rocking of hips. Neur: Awake and alert and oriented 3, no focal deficits. Psych: Normal Mood and Affect Result Diagram: 09/19/16 1209 09/19/16 1209 Results 24 hrs Laboratory Tests Test 09/19/16 12:09 White Blood Count 8.010^3/ul Red Blood Count 4.0710^6/ul Hemoglobin 11.6g/dl Hematocrit 37.5% Mean Corpuscular Volume 92.1fl Mean Corpuscular Hemoglobin 28.5pg Mean Corpuscular Hemoglobin Concent 30.9g/dl Red Cell Distribution Width 15.5% Platelet Count 97138^3/UL Mean Platelet Volume 9.5fl Neutrophils % 48.0% Lymphocytes % 42.3% Monocytes % 5.3% Eosinophils % 3.6% Basophils % 0.4% Nucleated Red Blood Cells % 0.0/100WBC Neutrophils # 3.810^3/ul Lymphocytes # 3.410^3/ul Monocytes # 0.410^3/ul Eosinophils # 0.310^3/ul Basophils # 0.010^3/ul Nucleated Red Blood Cells # 0.010^3/ul Prothrombin Time 12.1Sec Prothrombin Time Ratio 0.9 INR International Normalized Ratio 0.90 Activated Partial Thromboplast Time 31.1Sec Sodium Level 140mmol/L Potassium Level 4.6mmol/L Chloride Level 102mmol/L Carbon Dioxide Level 27mmol/L Anion Gap 16 Blood Urea Nitrogen 13mg/dl Creatinine 0.76mg/dl Glucose Level 92mg/dl Calcium Level 9.0mg/dl Troponin I < 0.012ng/ml Current Medications Medications (Trade) Dose Ordered Sig/Migel Route PRN Reason Start Time Stop Time Status Last Admin Dose Admin Morphine Sulfate (morphine) 2 mg ONCE STAT IV 09/19/16 11:44 09/19/16 11:49 DC 09/19/16 12:16 Diphenhydramine HCl (Benadryl) 25 mg ONCE ONCE IM 09/19/16 12:00 09/19/16 12:01 DC 09/19/16 12:16 Acetaminophen (Tylenol Tab) 1,000 mg ONCE STAT PO 09/19/16 13:19 09/19/16 13:20 DC 09/19/16 13:43 Procedures/MDM Mechanical fall with head injury and upper back contusion. She was given 2 mg of morphine as well as 50 mill grams of IM Benadryl as she says she gets itching with Benadryl. This decreased her pain. Says that she cannot take hydrocodone because she is to be addicted to it. Respecting her wishes I am going to discharge her with Tylenol as well as tramadol. Because of her history of multiple strokes and comorbidities I did perform a cardiac workup in addition to the traumatic workup. Fortunately she has no signs of cardiac ischemia. She currently has no signs of infection no significant electrolyte abnormalities. I am going to discharge her with instructions see her primary care doctor in the next couple days. She already has an appointment on Sunday but she is going to see if she can have it moved up. I am also telling her to return to the emergency room for any concerning changes. EKG interpretation: Normal sinus rhythm rate of 86, normal axis, QT of 502, no ST or T-wave changes concerning for acute ischemia. surveillance monitor interpretation: Normal sinus rhythm without arrhythmia. CT head interpretation: No acute process, I see no hemorrhage, no mass-effect no midline shift, no skull fracture CT C-spine interpretation: Evidence of prior laminectomy without acute fracture or subluxation. CT thoracic spine interpretation: No acute fracture dislocation or subluxation. Chest x-ray interpretation: I see no acute process. I see no pulmonary edema, no infiltrates, no fractures Departure Diagnosis: Primary Impression: Contusion of upper back Additional Impression: Head injury Condition: Stable Patient Instructions: Contusion, Back Additional Instructions: Call your primary care doctor TOMORROW for an appointment during the next 1-2 days.See the doctor sooner or return here if your condition worsens before your appointment time. DEAN GILBERT DO September 19, 2016 14:35
[2016-09-19 15:09] VITALS: BP 112/72; PULSE 78; RESP 18; TEMP 96.8
== END 2016-09-19 15:12 | disposition home or self-care (01) ==
LOC: E/R 11:03
DX: S20.229A Contusion of unspecified back wall of thorax, initial encounter (principal); F17.210 Nicotine dependence, cigarettes, uncomplicated; R07.9 Chest pain, unspecified; R93.0 Abnormal findings on diagnostic imaging of skull and head, not elsewhere classified; W18.09XA Striking against other object with subsequent fall, initial encounter; Y92.002 Bathroom of unspecified non-institutional (private) residence as the place of occurrence of the external cause; Z79.82 Long term (current) use of aspirin
CPT/HCPCS: 70450; 71010; 72125; 72128; 80048; 84484; 85025; 85610; 85730; 93005; J1200; J2270; Z7610

== ENCOUNTER 2016-09-26 12:35 | Emergency (ER) | payer OTHER ==
[~2016-09-26] VITALS: Wt 65.0 kg
[~2016-09-26 12:35] MED LIST changes: +TRAM50TA2 PO; +TYL500 PO
--- NOTE | 2016-09-26 14:28 | ERD ---
ER Documentation Chief Complaint Date/Time DATE: 09/26/16 TIME: 14:26 Chief Complaint HEAD PAIN FROM A FALL NO INJURY. NOSEBLEED WITH NO ACTIVE BLEEDING. HPI Patient is a 48-year-old female with stroke and diabetes who presents after a fall. She said that she fell and hit her head at 3 AM. She had a nosebleed which is stopped on its own. She was brought in by ambulance. She is complaining of headache and dizziness. Upon review of old medical records the patient has multiple visits to the emergency department and is well-known to myself into our staff. She has similar complaints in the past and is requesting pain medication at this time. When I told her I would give her anything nonnarcotic she said "nonnarcotic medicines do not work for me". ROS All systems reviewed and are negative except as per history of present illness. Medications Home Meds Active Scripts Tramadol HCl (Tramadol HCl) 50 Mg Tablet, 50 MG PO Q6, #12 TAB Prov:DEAN GILBERT DO 09/19/16 Acetaminophen* (Tylenol*) 500 Mg Tab, 1000 MG PO Q6 Y for PAIN AND OR ELEVATED TEMP, #20 TAB Prov:DEAN GILBERT DO 09/19/16 Prednisone* (Prednisone*) 20 Mg Tab, 40 MG PO DAILY for 4 Days, TAB Prov:ASHLEE HINTON MD 08/03/16 Albuterol Sulfate* (Proair HFA*) 8.5 Gm Hfa.aer.ad, 2 PUFF INH Q6H Y for WHEEZING AND SOB, #1 INHALER Prov:ASHLEE HINTON MD 08/03/16 Acetaminophen* (Tylenol*) 325 Mg Tablet, 2 TAB PO Q4 Y for PAIN AND OR ELEVATED TEMP, #30 TAB Prov:SALBADOR LOPEZ PA-C 07/02/16 Aspirin (Aspirin) 81 Mg Chew, 81 MG PO DAILY for 30 Days, TAB Prov:WENDIE AVALOS MD 06/15/16 Reported Medications Albuterol Sulfate* (Proair HFA*) 8.5 Gm Hfa.aer.ad, 2 PUFF INH Q4H Y for WHEEZING AND SOB, #1 INHALER 03/02/16 Benazepril Hcl* (Benazepril Hcl*) 20 Mg Tablet, 20 MG PO DAILY, #30 TAB 03/02/16 Carisoprodol* (Carisoprodol*) 350 Mg Tablet, 350 MG PO Q8 Y for MUSCLE SPASMS, TAB 03/02/16 Temazepam* (Temazepam*) 30 Mg Capsule, 30 MG PO HS Y for INSOMNIA, CAP 03/02/16 Allergies Allergies: Coded Allergies: sulfamethoxazole (Verified Allergy, Intermediate, HIVES, 06/05/16) trimethoprim (Verified Allergy, Intermediate, HIVES, 06/05/16) amoxicillin (Verified Allergy, Unknown, 06/05/16) clavulanic acid (Verified Allergy, Unknown, 06/05/16) ketorolac (Verified Allergy, Unknown, 06/05/16) PMhx/Soc History of Surgery: Yes (back, neck, hysterectomy, L BKA) Anesthesia Reaction: No Hx Neurological Disorder: No Hx Respiratory Disorders: No Hx Cardiac Disorders: No Hx Psychiatric Problems: No Hx Miscellaneous Medical Probl: No Hx Alcohol Use: No Hx Substance Use: No Hx Tobacco Use: Yes FmHx Family History: diabetes Physical Exam Vitals Vital Signs Date Time Temp Pulse Resp B/P Pulse Ox O2 Delivery O2 Flow Rate FiO2 09/26/16 12:59 97.8 78 20 133/75 98 Physical Exam Const: No acute distress Head: Atraumatic Eyes: Normal Conjunctiva ENT: Normal External Ears, Nose and Mouth. No active epistaxis at this time Neck: Full range of motion..~ No meningismus. Resp: Clear to auscultation bilaterally Cardio: Regular rate and rhythm, no murmurs Abd: Soft, non tender, non distended. Normal bowel sounds Skin: No petechiae or rashes Back: No midline or flank tenderness Ext: Previous left leg amputation Neur: Awake and alert Psych: Normal Mood and Affect Procedures/MDM Smoking Cessation Therapy: Pt. was lectured for greater than 3 minutes on the health risks of continued smoking and the benefits of cessation. Patient is a 56-year-old female who presents after a fall. She has no further epistaxis. I do not believe she has intracranial hemorrhage or mass. I believe the risks of doing a CT scan of the brain outweigh the benefits and the patient will be discharged. Her vital signs are normal. She is in her normal state of health. The patient can return for any worsening symptoms. Departure Diagnosis: Primary Impression: Epistaxis Additional Impression: Fall Encounter type: initial encounter Qualified Code: W19.XXXA - Fall, initial encounter Condition: Fair Patient Instructions: Epistaxis (Adult), Fall, Mechanical Additional Instructions: Call your primary care doctor TOMORROW for an appointment during the next 1-2 days.See the doctor sooner or return here if your condition worsens before your appointment time. ERMA DOUGLAS MD September 26, 2016 14:28
== END 2016-09-26 13:17 | disposition home or self-care (01) ==
LOC: E/R 12:35
DX: R04.0 Epistaxis (principal); F17.210 Nicotine dependence, cigarettes, uncomplicated; E11.9 Type 2 diabetes mellitus without complications; W18.00XA Striking against unspecified object with subsequent fall, initial encounter; Y92.9 Unspecified place or not applicable; Z79.82 Long term (current) use of aspirin
CPT/HCPCS: 99282

== ENCOUNTER 2016-11-29 22:34 | Inpatient (IN) | payer OTHER ==
[~2016-11-29] VITALS: Ht 157.5 cm; Wt 65.9 kg
[2016-11-30] MEDS ORDERED: SOD CHLORIDE 0.9% 1,000 ML IV STA (01:39)
[2016-11-30] MEDS ORDERED: CEFTRIAXONE 1 GM/50 ML (PMX) 50 ML IVPB ONE (02:00)
[2016-11-30] MEDS ORDERED: VANCOMYCIN 1 GM (PMX) 250 ML IVPB SCH (02:00)
[2016-11-30] MEDS ORDERED: LORAZEPAM 2 MG INJ IV ONE (02:00)
--- NOTE | 2016-11-30 02:13 | RADRPT ---
PROCEDURE: XR Knee. CLINICAL INDICATION: Abscess. TECHNIQUE: AP, lateral and oblique view of the right knee were obtained. COMPARISON: There are no similar studies submitted for comparison. FINDINGS: There is normal mineralization.There is no acute fracture or dislocation.No destructive lesion is id entified. There is no joint effusion. No radiopaque foreign bodies are seen. IMPRESSION: No destructive osseous changes to suggest osteomyelitis. This cannot be entirely excluded by x-ray. RPTAT: HIKT .Magen Romero MD, Date Time Electronically viewed and signed by .Magen Romero MD, on 11/30/2016 02:12 .T/
[2016-11-30 02:18] LABS: HEMOGLOBIN 11.6 g/dl (12.0-16.0); MEAN CORPUSCULAR HEMOGLOBIN 28.3 pg (29.0-33.0); MEAN CORPUSCULAR HGB CONC 31.4 g/dl (32.0-37.0); MEAN CORPUSCULAR VOLUME 90.2 fl (82.0-101.0); MEAN PLATELET VOLUME 9.1 fl (7.4-10.4); PLATELET COUNT 288 10^3/UL (140-415); RED CELL DISTRIBUTION WIDTH 14.8 % (11.5-14.5)
[2016-11-30 02:22] LABS: POSITIVE DIFF @See below
[2016-11-30] MEDS ORDERED: LIDOCAINE 1% (MDV) 20 ML INJ SC ONE (02:30)
[2016-11-30 02:40] LABS: ALBUMIN 3.8 g/dl (3.3-4.9); ALBUMIN/GLOBULIN RATIO 0.84; CALCIUM 9.5 mg/dl (8.4-10.2); CREATININE 0.74 mg/dl (0.44-1.00); POTASSIUM 4.3 mmol/L (3.5-5.1); TOTAL PROTEIN 8.3 g/dl (6.1-8.1)
[2016-11-30 02:46] LABS: INR 0.85; PROTIME 11.6 Sec (12.2-14.2); PT RATIO 0.9
[2016-11-30] MEDS ORDERED: ALBUTEROL 0.5% (NEB) 2.5 MG/0.5 ML AMP INH ONE (03:22)
--- NOTE | 2016-11-30 03:25 | ERA ---
ER Documentation Chief Complaint Date/Time DATE: 11/30/16 TIME: 03:15 Chief Complaint abscess on right knee. Spider bite 4 days ago HPI 56-year-old woman presents with right knee pain, swelling, discharge from a spider bite she received 4 days ago. She states she has lots of black spiders near her and suspects it was a black spider. She denies systemic symptoms, she has had no fever, no abdominal pain, no vomiting or diarrhea, no headache or blurry vision. Patient developed soft tissue swelling over the right medial knee over the course of the last 4 days. ROS All systems reviewed and are negative except as per history of present illness. Medications Home Meds Active Scripts Aspirin (Aspirin) 81 Mg Chew, 81 MG PO DAILY for 30 Days, TAB Prov:WENDIE AVALOS MD 06/15/16 Reported Medications Albuterol Sulfate* (Proair HFA*) 8.5 Gm Hfa.aer.ad, 2 PUFF INH Q4H Y for WHEEZING AND SOB, #1 INHALER 03/02/16 Benazepril Hcl* (Benazepril Hcl*) 20 Mg Tablet, 20 MG PO DAILY, #30 TAB 03/02/16 Temazepam* (Temazepam*) 30 Mg Capsule, 30 MG PO HS Y for INSOMNIA, CAP 03/02/16 Discontinued Reported Medications Carisoprodol* (Carisoprodol*) 350 Mg Tablet, 350 MG PO Q8 Y for MUSCLE SPASMS, TAB 03/02/16 Discontinued Scripts Tramadol HCl (Tramadol HCl) 50 Mg Tablet, 50 MG PO Q6, #12 TAB Prov:DEAN GILBERT DO 09/19/16 Acetaminophen* (Tylenol*) 500 Mg Tab, 1000 MG PO Q6 Y for PAIN AND OR ELEVATED TEMP, #20 TAB Prov:DEAN GILBERT DO 09/19/16 Prednisone* (Prednisone*) 20 Mg Tab, 40 MG PO DAILY for 4 Days, TAB Prov:ASHLEE HINTON MD 08/03/16 Albuterol Sulfate* (Proair HFA*) 8.5 Gm Hfa.aer.ad, 2 PUFF INH Q6H Y for WHEEZING AND SOB, #1 INHALER Prov:ASHLEE HINTON MD 08/03/16 Acetaminophen* (Tylenol*) 325 Mg Tablet, 2 TAB PO Q4 Y for PAIN AND OR ELEVATED TEMP, #30 TAB Prov:EDUARDonSALBADOR Oropeza PA-C 07/02/16 Allergies Allergies: Coded Allergies: sulfamethoxazole (Unverified Allergy, Intermediate, HIVES, 11/30/16) trimethoprim (Unverified Allergy, Intermediate, HIVES, 11/30/16) amoxicillin (Unverified Allergy, Unknown, 11/30/16) clavulanic acid (Unverified Allergy, Unknown, 11/30/16) ketorolac (Unverified Allergy, Unknown, 11/30/16) phenytoin (Unverified Allergy, Unknown, HIVES, 11/30/16) PMhx/Soc Chronic pain, chronic anxiety, COPD on home oxygen, hypertension, history of CVA , left lower extremity amputation Hysterectomy, left below-knee amputation History of Surgery: Yes (back, neck, hysterectomy, L BKA) Anesthesia Reaction: No Hx Neurological Disorder: No Hx Respiratory Disorders: No Hx Cardiac Disorders: No Hx Psychiatric Problems: No Hx Miscellaneous Medical Probl: No Hx Alcohol Use: No Hx Substance Use: No Hx Tobacco Use: Yes Smoking Status: Current every day smoker FmHx Family History: diabetes Physical Exam Vitals Vital Signs Date Time Temp Pulse Resp B/P Pulse Ox O2 Delivery O2 Flow Rate FiO2 11/29/16 23:03 98.5 93 18 140/90 98 Physical Exam GENERAL: Well-developed, well-nourished, moderate pain HEENT: Moist mucous membranes, pink conjunctiva, no cervical spine tenderness or step-off deformities, no goiter, no jaundice or icterus, extraocular movements intact without pain. No submandibular induration, and no pharyngeal erythema NEURO: Alert and oriented 3, cranial nerves II through XII intact bilaterally, pupils equal round reactive to light, no focal deficits or facial asymmetry, sensation intact distally Strength 5/5 in upper and lower extremities bilaterally CARDIAC: Regular rate and rhythm, no murmurs rubs or gallops LUNGS: Mild wheezing, no crackles or stridor ABDOMEN: Soft nontender, no guarding, no rigidity, no rebound, no psoas sign no obturator sign. SKIN: Warm and dry to touch, large zone of skin erythema and induration to the medial aspect of the right knee with purulent discharge over the abscess. Superficial skin ulcerations EXTREMITIES: 3 x 4 cm oval abscess over the medial aspect of the right knee with purulent discharge and surrounding skin erythema, lateral knee is unaffected, patient has full range of motion passively without difficulty. Positive left below-knee amputation stump clean and dry PSYCH: Normal affect without agitation or irritability Result Diagram: 11/30/16 0158 11/30/16 0158 Results 24 hrs Laboratory Tests Test 11/30/16 01:58 White Blood Count 8.010^3/ul Red Blood Count 4.1010^6/ul Hemoglobin 11.6g/dl Hematocrit 37.0% Mean Corpuscular Volume 90.2fl Mean Corpuscular Hemoglobin 28.3pg Mean Corpuscular Hemoglobin Concent 31.4g/dl Red Cell Distribution Width 14.8% Platelet Count 94657^3/UL Mean Platelet Volume 9.1fl Neutrophils % % Lymphocytes % % Monocytes % % Eosinophils % % Basophils % % Nucleated Red Blood Cells % 0.0/100WBC Neutrophils # 10^3/ul Lymphocytes # 10^3/ul Monocytes # 10^3/ul Eosinophils # 10^3/ul Basophils # 10^3/ul Nucleated Red Blood Cells # 10^3/ul Prothrombin Time 11.6Sec Prothrombin Time Ratio 0.9 INR International Normalized Ratio 0.85 Sodium Level 144mmol/L Potassium Level 4.3mmol/L Chloride Level 99mmol/L Carbon Dioxide Level 31mmol/L Anion Gap 18 Blood Urea Nitrogen 11mg/dl Creatinine 0.74mg/dl Glucose Level 105mg/dl Calcium Level 9.5mg/dl Total Bilirubin 0.0mg/dl Direct Bilirubin 0.00mg/dl Indirect Bilirubin 0.0mg/dl Aspartate Amino Transf (AST/SGOT) 27IU/L Alanine Aminotransferase (ALT/SGPT) 34IU/L Alkaline Phosphatase 112IU/L Total Protein 8.3g/dl Albumin 3.8g/dl Globulin 4.50g/dl Albumin/Globulin Ratio 0.84 Lipase 88U/L Current Medications Medications (Trade) Dose Ordered Sig/Migel Route PRN Reason Start Time Stop Time Status Last Admin Dose Admin Lorazepam 1 mg 1 mg ONCE ONCE IV 11/30/16 02:00 11/30/16 02:01 DC 11/30/16 02:19 Sodium Chloride 1,000 ml @ 1,000 mls/hr Q1H STAT IV 11/30/16 01:39 11/30/16 02:38 DC 11/30/16 02:18 Ceftriaxone Sodium 50 ml @ 100 mls/hr ONCE ONCE IVPB 11/30/16 02:00 11/30/16 02:29 DC 11/30/16 02:18 Vancomycin HCl (Vancocin) 250 ml @ 125 mls/hr ONCE IVPB 11/30/16 02:00 11/30/16 03:59 Lidocaine (Xylocaine 1% (Mdv) 20 ml) 20 ml ONCE ONCE SC 11/30/16 02:30 11/30/16 02:31 DC Procedures/MDM IV line was established patient was placed on cardiac rehabilitation specialist rhythm strip revealed a sinus rhythm at about 80 bpm with upright P and T waves. Patient was afebrile. I administered 1 L normal saline intravenously, lorazepam 1 mg IV, ceftriaxone 1 g IV, vancomycin 1 g IV for abscess cellulitis over the medial aspect of the right knee. CBC and electrolytes were normal, liver function tests were normal. X-ray right knee 3V Interpreted by me: Bones: No fracture Joints: No dislocation Foreign body: None Chest X-ray 1V Interpreted by me: Soft Tissue: No acute abnormalities Bones: No acute abnormalities Mediastinum/Cardiac Silhouette/Lungs: No acute abnormalities Arthrocentesis by me to rule out septic arthritis: Patient consented, sterilely draped, full prep, time out performed. Anesthesia: 1% lidocaine locally Location: Right lateral knee Technique: 18 gauge needle aspiration Results: 3 ml of bloody serous fluid was obtained no purulent discharge was observed although fluid was minimal as there was no joint effusion. Complications: Minimal bleeding. No complications. Serous fluid was sent to lab results are pending I will follow-up. I administered albuterol 10 mg via nebulizer for COPD. Patient admitted to [facility] for continued medical management, and IV antibiotics. Departure Diagnosis: Primary Impression: Abscess Additional Impressions: Cellulitis Qualified Code: L03.115 - Cellulitis of right lower extremity COPD (chronic obstructive pulmonary disease) Qualified Code: J44.1 - Chronic obstructive pulmonary disease with acute exacerbation Condition: ASHLEE De Leon MD Nov 30, 2016 03:25
[2016-11-30] MEDS ORDERED: ONDANSETRON 4 MG INJ IV STA (03:30)
[2016-11-30] MEDS ORDERED: morphine 4 MG/ML VIAL IV STA (03:30)
--- NOTE | 2016-11-30 03:58 | RADRPT ---
PROCEDURE: Chest. CLINICAL INDICATION: Chest pain. TECHNIQUE: Single frontal view of the chest was obtained. COMPARISON: 09/19/2016. FINDINGS: The cardiac silhouette is within normal limits. The aortic arch is unremarkable. There is intersti tial pulmonary fibrosis bilaterally especially within the upper lobes. There is no focal consolidati on, vascular congestion or pleural effusion. There is no pneumothorax. Cervical fusion hardware is present. IMPRESSION: Interstitial pulmonary fibrosis especially within the upper lobes, slightly increased. Otherwise no evidence for active cardiopulmonary disease. .Michael Vance MD, Date Time Electronically viewed and signed by .Michael Vance MD, on 11/30/2016 03:58 .T/
[2016-11-30 04:15] LABS: EOSINOPHILS % (M) 5 % (0-7); MONOCYTES % (M) 3 % (0-11); PLATELET ESTIMATE NORMAL; REACTIVE LYMPHOCYTES% (M) 2 % (0-0)
[2016-11-30 04:29] LABS: EOSINOPHILS # 0.4 10^3/ul (0.0-0.5); LYMPHOCYTES # 3.1 10^3/ul (0.8-2.9); MONOCYTE # 0.2 10^3/ul (0.3-0.9); NEUTROPHIL # 4.1 10^3/ul (1.6-7.5)
[2016-11-30 04:31] LABS: SYN FLD SOURCE RIGHT KNEE
[2016-11-30 04:32] LABS: SYN FLD CLARITY Turbid; SYN FLD COLOR RED
[2016-11-30 04:41] VITALS: PULSE 106
[2016-11-30 04:48] LABS: SYN FLD CRYSTALS NO CRYSTALS SEEN (None seen)
[2016-11-30 05:04] LABS: SYN FLD WBC 2010 /cmm (0-150)
[2016-11-30 05:05] LABS: SYN FLD MN % 43.2 &; SYN FLD PMN % 56.8 % (0.0-25.0)
[2016-11-30 05:13] VITALS: BP 154/88; RESP 16
[2016-11-30 05:30] VITALS: Ht 157.5 cm; Wt 65.9 kg
[2016-11-30] MEDS ORDERED: ACETAMINOPHEN 325 MG TAB PO PRN (06:00)
[2016-11-30] MEDS ORDERED: ALBUTEROL 18 GM INHALER INH PRN (06:00)
[2016-11-30] MEDS ORDERED: DIPHENHYDRAMINE 25 MG CAP PO PRN (06:00)
[2016-11-30] MEDS ORDERED: DEXTROSE 5%-0.45% NACL 1,000 ML IV SCH (06:00)
[2016-11-30] MEDS ORDERED: HYDROCODONE/APAP (5/325) TAB PO PRN (06:00)
[2016-11-30] MEDS ORDERED: LORAZEPAM 0.5 MG TAB PO PRN (06:00)
[2016-11-30] MEDS ORDERED: ZOLPIDEM 5 MG TAB PO PRN (06:00)
[2016-11-30] MEDS ORDERED: morphine 2 MG INJ IV PRN (06:00)
[2016-11-30] MEDS ORDERED: VANCOMYCIN IV PER PHARMACY XX SCH (06:00)
[2016-11-30] MEDS ORDERED: SOD CHLORIDE 0.45% 1,000 ML IV SCH (06:00)
[2016-11-30] MEDS ORDERED: morphine 4 MG/ML VIAL IV PRN (06:00)
[2016-11-30 08:00] VITALS: BP 140/71; RESP 19
[2016-11-30] MEDS ORDERED: LORAZEPAM 2 MG INJ IV PRN (08:00)
[2016-11-30] MEDS ORDERED: DIPHENHYDRAMINE 50 MG INJ IV PRN (08:00)
[2016-11-30] MEDS ORDERED: ENOXAPARIN 40 MG/0.4 ML SYG SC SCH (09:00)
[2016-11-30] MEDS ORDERED: BENAZEPRIL 20 MG TAB PO SCH (09:00)
[2016-11-30] MEDS ORDERED: LEVOFLOXACIN 500MG/D5W (PMX) 100 ML IVPB SCH (09:00)
[2016-11-30] MEDS ORDERED: ONDANSETRON 4 MG INJ IV PRN (09:00)
[2016-11-30] MEDS ORDERED: VANCOMYCIN 1 GM in NS 250 ML IVPB SCH (12:00)
== END 2016-11-30 10:35 | disposition left against medical advice (07) | DRG 603 ==
LOC: E/R 22:34 → PP2 11-30 03:40
PROVIDERS: ADMIT Internal Medicine; ATTEND Internal Medicine
DX: L03.115 Cellulitis of right lower limb (principal); J44.1 Chronic obstructive pulmonary disease with (acute) exacerbation
CPT/HCPCS: 36415; 71010; 73562; 80053; 83690; 85025; 85610; 87040; 89060; 94644; 96374; 96375; J0696; J1200; J1650; J1956; J2060; J2270; J2405; J3370; J7030; J7042

== ENCOUNTER 2016-12-29 10:27 | Emergency (ER) | payer OTHER ==
[~2016-12-29] VITALS: Ht 162.6 cm; Wt 60.0 kg
[~2016-12-29 10:27] MED LIST changes: -ACET325T33 PO; -CARI350T29 PO; -PRED20TA PO; -TRAM50TA2 PO; -TYL500 PO
[2016-12-29 10:39] VITALS: Ht 162.6 cm; Wt 60.0 kg
--- NOTE | 2016-12-29 13:15 | ERD ---
ER Documentation Chief Complaint Date/Time DATE: 12/29/16 TIME: 13:12 Chief Complaint BIB RA FOR EVAL OF GENERALIZED WEAKNESS AND HEADACHE SINCE LAST NIGHT HPI Patient is a 56-year-old female with previous stroke who presents saying "I cannot feel my arms or legs". She was brought in by ambulance. She said the symptoms are bilateral. She said that she fell yesterday and hit her head. She denies fevers. She tried Soma for her pain. She is requesting pain medications in the emergency department. Upon review of old medical records the patient has multiple visits to the ER for various similar type complaints. The patient also has a care plan on the emergency department information exchange system given her chronic pain as well as visits to another emergency department. She does have a primary doctor. ROS All systems reviewed and are negative except as per history of present illness. Medications Home Meds Active Scripts Aspirin (Aspirin) 81 Mg Chew, 81 MG PO DAILY for 30 Days, TAB Prov:WENDIE AVALOS MD 06/15/16 Reported Medications Albuterol Sulfate* (Proair HFA*) 8.5 Gm Hfa.aer.ad, 2 PUFF INH Q4H Y for WHEEZING AND SOB, #1 INHALER 03/02/16 Benazepril Hcl* (Benazepril Hcl*) 20 Mg Tablet, 20 MG PO DAILY, #30 TAB 03/02/16 Temazepam* (Temazepam*) 30 Mg Capsule, 30 MG PO HS Y for INSOMNIA, CAP 03/02/16 Allergies Allergies: Coded Allergies: sulfamethoxazole (Unverified Allergy, Intermediate, HIVES, 12/29/16) trimethoprim (Unverified Allergy, Intermediate, HIVES, 12/29/16) amoxicillin (Unverified Allergy, Unknown, 12/29/16) clavulanic acid (Unverified Allergy, Unknown, 12/29/16) ketorolac (Unverified Allergy, Unknown, 12/29/16) phenytoin (Unverified Allergy, Unknown, HIVES, 12/29/16) PMhx/Soc History of Surgery: Yes (BKA 2006, Neck surgery 2004, hysterectomy) Anesthesia Reaction: No Hx Neurological Disorder: Yes (Multiple strokes) Hx Respiratory Disorders: Yes (PRN O2 use, emphysema) Hx Cardiac Disorders: Yes (HTN) Hx Psychiatric Problems: No (denies) Hx Miscellaneous Medical Probl: No (denies) Hx Alcohol Use: No Hx Substance Use: No Hx Tobacco Use: Yes (2 packs/day) Smoking Status: Current every day smoker FmHx Family History: No diabetes Physical Exam Vitals Vital Signs Date Time Temp Pulse Resp B/P Pulse Ox O2 Delivery O2 Flow Rate FiO2 12/29/16 10:39 99.3 97 16 95/76 93 Physical Exam Const: Moderate distress secondary to pain Head: Atraumatic Eyes: Normal Conjunctiva ENT: Normal External Ears, Nose and Mouth. Neck: Full range of motion..~ No meningismus. Resp: Clear to auscultation bilaterally Cardio: Regular rate and rhythm, no murmurs Abd: Soft, non tender, non distended. 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 Patient is a 56-year-old female with previous stroke who presents with bilateral upper and lower extremity numbness. I wanted to do a CT scan of the head and cervical spine but after telling the patient she would not receive any narcotic medicines the patient became angry and said she wanted to leave prior to the studies being completed. She was able to wheel herself in her wheelchair without difficulty and appeared to have good function of the upper and lower extremities. I told her that she has a chronic pain care plan that was done in the [facility] chronic pain committee and that we would not give her any narcotic medications here in the emergency department as per our care plan. I did provide her with a copy of the care plan as well which she refused to sign. The patient should follow-up with her primary doctor within 24-48 hours. She can return for any worsening symptoms. At this point I truly doubt stroke or intracranial hemorrhage or mass. However the patient did not stay to get these CT of her head and cervical spine to confirm this. Departure Diagnosis: Primary Impression: Pain Additional Impressions: Acute weakness Fall Encounter type: initial encounter Qualified Code: W19.XXXA - Fall, initial encounter Headache Headache type: unspecified Headache chronicity pattern: acute headache Intractability: not intractable Qualified Code: R51 - Acute nonintractable headache, unspecified headache type Condition: Fair Patient Instructions: Chronic Pain, Fall, Mechanical Additional Instructions: FOLLOW UP WITH YOUR PRIMARY CARE PHYSICIAN TOMORROW.Return to this facility if you are not improving as expected. ERMA DOUGLAS MD Dec 29, 2016 13:15
== END 2016-12-29 11:30 | disposition home or self-care (01) ==
LOC: E/R 10:27
DX: S09.90XA Unspecified injury of head, initial encounter (principal); R53.1 Weakness; I10 Essential (primary) hypertension; F17.210 Nicotine dependence, cigarettes, uncomplicated; R40.2142 Coma scale, eyes open, spontaneous, at arrival to emergency department; R40.2252 Coma scale, best verbal response, oriented, at arrival to emergency department; R40.2362 Coma scale, best motor response, obeys commands, at arrival to emergency department; W01.198A Fall on same level from slipping, tripping and stumbling with subsequent striking against other object, initial encounter; Y92.9 Unspecified place or not applicable; Z79.82 Long term (current) use of aspirin
CPT/HCPCS: 99282

== ENCOUNTER → 2017-03-30 | Emergency (ER) | payer OTHER ==
[~2017-03-30] VITALS: Wt 60.0 kg
--- NOTE | 2017-03-30 13:12 | ERD ---
ER Documentation Chief Complaint Chief Complaint HEAD PAIN AFTER MECHANICAL FALL HPI This is a 57-year-old female well-known to this provider in this emergency department who states that she hit her head approximately 1 hour prior to arrival. The patient states that she fell out of her wheelchair. She states that she hit her head and she did not lose consciousness. The patient is describing mild headache 2 out of 10 in asking for IV narcotics. The patient denies any neck pain or prodrome of chest pain or shortness of breath. ROS All systems reviewed and are negative except as per history of present illness. Medications Home Meds Active Scripts Aspirin (Aspirin) 81 Mg Chew, 81 MG PO DAILY for 30 Days, TAB Prov:WENDIE AVALOS MD 06/15/16 Reported Medications Albuterol Sulfate* (Proair HFA*) 8.5 Gm Hfa.aer.ad, 2 PUFF INH Q4H Y for WHEEZING AND SOB, #1 INHALER 03/02/16 Benazepril Hcl* (Benazepril Hcl*) 20 Mg Tablet, 20 MG PO DAILY, #30 TAB 03/02/16 Temazepam* (Temazepam*) 30 Mg Capsule, 30 MG PO HS Y for INSOMNIA, CAP 03/02/16 Allergies Allergies: Coded Allergies: sulfamethoxazole (Unverified Allergy, Intermediate, HIVES, 12/29/16) trimethoprim (Unverified Allergy, Intermediate, HIVES, 12/29/16) amoxicillin (Unverified Allergy, Unknown, 12/29/16) clavulanic acid (Unverified Allergy, Unknown, 12/29/16) ketorolac (Unverified Allergy, Unknown, 12/29/16) phenytoin (Unverified Allergy, Unknown, HIVES, 12/29/16) PMhx/Soc History of Surgery: Yes (BKA 2006, Neck surgery 2004, hysterectomy) Anesthesia Reaction: No Hx Neurological Disorder: Yes (Multiple strokes) Hx Respiratory Disorders: Yes (PRN O2 use, emphysema) Hx Cardiac Disorders: Yes (HTN) Hx Psychiatric Problems: No (denies) Hx Miscellaneous Medical Probl: No (denies) Hx Alcohol Use: No Hx Substance Use: No Hx Tobacco Use: Yes (2 packs/day) FmHx Family History: No diabetes Physical Exam Vitals Vital Signs Date Time Temp Pulse Resp B/P Pulse Ox O2 Delivery O2 Flow Rate FiO2 03/30/17 12:34 98.0 74 18 134/87 99 Physical Exam Airway is intact Bilateral breath sounds Strong distal pulses No obvious deficits General: Well developed, well nourished, no acute distress Head: The patient appears to have a subacute contusion to the right forehead Eyes: Pupils equally reactive, EOM intact ENT: Moist mucous membranes Neck: Supple, no lymphadenopathy, No midline tenderness, deformities, step-offs to the cervical spine, full active and passive range of motion without midline pain. Respiratory: Lungs clear bilaterally, no distress, no chest wall tenderness, no crepitus Cardiovascular: RRR, no murmurs, rubs, or gallops Abdominal: Soft, non-tender, non-distended, no peritoneal signs, pelvis is stable : Deferred MSK: No edema, no unilateral swelling, 5/5 strength, left lower extremity BKA, no midline tenderness deformities or step-offs to the thoracolumbar spine Neurologic: Alert and oriented, moving all extremities, normal speech, no focal weakness, no cerebellar signs Skin: No ecchymoses or bruising to the chest or abdomen Psych: Normal mood Procedures/MDM The patient has a apparent closed head injury that is unclear of the acuity. It appears to be subacute. Patient is asking for IV narcotics. The patient is well-known to this emergency provider in this emergency department for drug- seeking behavior. The patient regularly throws herself on the ground. While this is the case the patient does have evidence of subacute trauma and I strongly recommend CT imaging of the brain. The patient states that the only way she is getting a CAT scan as if she gets IV narcotics. I do not feel comfortable providing IV or IM narcotics to this patient. I offered her oral medications with the patient is refusing. At this point the patient states that she would like a taxi voucher to be discharged. I advised that there is risk for intracranial hemorrhage and the patient verbalizes understanding. She states that I do not want a CAT scan "I just had a CAT scan and I want to go home now ". The patient has capacity. I am concerned about drug-seeking behavior. The patient again was offered oral medication but refused. The patient will be leaving without CAT scan and understands that this is against my medical advice. A taxi voucher was provided and the patient was discharged. Departure Diagnosis: Primary Impression: Closed head injury Encounter type: initial encounter Qualified Code: S09.90XA - Closed head injury, initial encounter Condition: Stable Patient Instructions: HEAD INJURY, No Wake-Up (Adult) Additional Instructions: Call your primary care doctor TOMORROW for an appointment during the next 1 WEEK.Tell the dental secretary that you were referred from this facility.See the doctor sooner or return here if your condition worsens before your appointment time. MARCEL FISHER MD Mar 30, 2017 13:12
== END | disposition home or self-care (01) ==
LOC: E/R 12:31
DX: S09.90XA Unspecified injury of head, initial encounter (principal); I10 Essential (primary) hypertension; F17.210 Nicotine dependence, cigarettes, uncomplicated; V00.811A Fall from moving wheelchair (powered), initial encounter; Z79.82 Long term (current) use of aspirin
CPT/HCPCS: 99282

== ENCOUNTER 2017-06-13 10:52 | Emergency (ER) | END 2017-06-13 15:27 | disposition home or self-care (01) ==

== ENCOUNTER 2018-05-26 12:46 | Emergency (ER) | payer OTHER ==
[~2018-05-26] VITALS: Ht 157.5 cm; Wt 65.9 kg
[~2018-05-26 12:46] MED LIST changes: -ALBU8.5H3 INH; +ALBU8.5H8 INH; -ASPI81TA3 PO; -BENA20TA48 PO; +BENA40TA56 PO; +CARI350T29 PO; +FLOV110 INHALATION; +IBUP-1542 PO
[2018-05-26] MEDS ORDERED: ALBUTEROL 0.083% (NEB) 2.5 MG/3 ML AMP INH STA (12:50)
[2018-05-26] MEDS ORDERED: IPRATROPIUM (NEB) 0.5 MG/2.5 ML AMP INH STA (12:50)
[2018-05-26] MEDS ORDERED: DIPHENHYDRAMINE 50 MG INJ IV STA (12:50)
[2018-05-26] MEDS ORDERED: FAMOTIDINE 20 MG INJ IV STA (12:50)
[2018-05-26] MEDS ORDERED: DEXAMETHASONE 10 MG/ML 1 ML INJ IV ONE (13:00)
[2018-05-26 13:34] VITALS: Ht 157.5 cm; Wt 65.9 kg
--- NOTE | 2018-05-26 14:36 | ERD ---
ER Documentation Chief Complaint Chief Complaint ITCHY, NUMB THROAT WITH TONGUE SWELLING S/P EATING PEANUTS HPI This is a 58-year-old female with a history of tongue swelling after eating p eanuts, with a known peanut allergy who presents for evaluation. Patient is very well-known to [facility], she had multiple visits, she had a similar episode recently, which is also for having peanuts, she has never required intubation for an allergic reaction. ROS All systems reviewed and are negative except as per history of present illness. Medications Home Meds Reported Medications Temazepam* (Temazepam*) 30 Mg Capsule, 30 MG PO HS PRN for INSOMNIA, CAP 05/18/18 Carisoprodol* (Carisoprodol*) 350 Mg Tablet, 350 MG PO BID PRN for MUSCLE SPASMS, TAB 05/18/18 Albuterol Sulfate* (Proair HFA*) 8.5 Gm Hfa.aer.ad, 2 PUFF INH Q4H PRN for WHEEZING AND SOB, #1 INHALER 05/18/18 Fluticasone Propionate* (Flovent* HFA 110) 12 Gm Inha, 1 PUFF INHALATION BID, #1 INHALER 05/18/18 Benazepril Hcl* (Benazepril Hcl*) 40 Mg Tablet, 40 MG PO DAILY, #30 TAB 05/18/18 Ibuprofen* (Ibuprofen*) 600 Mg Tablet, 600 MG PO BID, TAB 05/18/18 Allergies Allergies: Coded Allergies: sulfamethoxazole (Unverified Allergy, Intermediate, HIVES, 05/26/18) trimethoprim (Unverified Allergy, Intermediate, HIVES, 05/26/18) amoxicillin (Unverified Allergy, Unknown, 05/26/18) clavulanic acid (Unverified Allergy, Unknown, 05/26/18) ketorolac (Unverified Allergy, Unknown, 05/26/18) phenytoin (Unverified Allergy, Unknown, HIVES, 05/26/18) PMhx/Soc History of Surgery: Yes (back surgery) Anesthesia Reaction: No Hx Neurological Disorder: No (CVA) Hx Respiratory Disorders: No Hx Cardiac Disorders: No Hx Psychiatric Problems: No Hx Miscellaneous Medical Probl: No Hx Alcohol Use: No Hx Substance Use: No Hx Tobacco Use: Yes Physical Exam Vitals Vital Signs Date Temp Pulse Resp B/P (MAP) Pulse Ox O2 O2 Flow FiO2 Time Delivery Rate 05/26/18 92 18 93 Nasal 1.0 14:26 Cannula 05/26/18 98.6 94 17 94/65 (75) 97 13:34 Physical Exam Const: No acute distress Head: Atraumatic Eyes: Normal Conjunctiva ENT: Normal External Ears, Nose and Mouth. There is swelling of her tongue, there is no uvular swelling, there is no erythema, no urticaria Neck: Full range of motion. No meningismus. Resp: Clear to auscultation bilaterally Cardio: Regular rate and rhythm, no murmurs Abd: Soft, non tender, non distended. Normal bowel sounds Skin: No petechiae or rashes Back: No midline or flank tenderness Ext: No cyanosis, or edema Neur: Awake and alert Psych: Normal Mood and Affect Results 24 hrs Current Medications Medications Dose Sig/Migel Start Time Status Last (Trade) Ordered Route PRN Stop Time Admin Dose Reason Admin 50 mg ONCE STAT 05/26/18 DC 05/26/18 Diphenhydrami IV 12:50 13:43 ne HCl 05/26/18 12:53 (Benadryl) Famotidine 20 mg ONCE STAT 05/26/18 DC 05/26/18 (Pepcid Iv) IV 12:50 13:44 05/26/18 12:53 Albuterol 5 mg ONCE STAT 05/26/18 DC 05/26/18 (Proventil INH 12:50 14:22 0.083% (Neb)) 05/26/18 12:53 Ipratropium 0.5 mg ONCE STAT 05/26/18 DC 05/26/18 [place] INH 12:50 14:22 (Atrovent 05/26/18 12:53 0.02% (Neb)) 10 mg ONCE ONCE 05/26/18 DC 05/26/18 Dexamethasone IV 13:00 13:44 (Decadron) 05/26/18 13:01 Procedures/MDM 4-year-old female well-known to [facility] presents for allergic reaction, which most likely peanuts, in a patient with known peanut allergy. As patient received IM epi epinephrine, she was also given steroids with dexamethasone, nebulizer treatment, as well as Benadryl and famotidine. Given that she received epi, will observe for 4-6 hours, if patient has no acute worsening of present her symptoms she may be stable for discharge home. Signed out to Dr. Naik Departure Diagnosis: Primary Impression: Allergic reaction Encounter type: initial encounter Qualified Codes: T78.40XA - Allergy, unspecified, initial encounter Condition: Stable ASHLEE VIVEROS MD May 26, 2018 14:36
[2018-05-26] MEDS ORDERED: EPIN0.3P4 INJ (14:37)
[2018-05-26 15:00] VITALS: BP 92/47; PULSE 91; RESP 18
[2018-05-26] MEDS ORDERED: ACETAMINOPHEN 325 MG TAB PO ONE (15:00)
[2018-05-26] MEDS ORDERED: DIPHENHYDRAMINE 50 MG INJ IV ONE (17:30)
== END 2018-05-26 17:28 | disposition home or self-care (01) ==
LOC: E/R 12:46
DX: T78.1XXA Other adverse food reactions, not elsewhere classified, initial encounter (principal); Z86.73 Personal history of transient ischemic attack (TIA), and cerebral infarction without residual deficits; Z87.891 Personal history of nicotine dependence; Z91.010 Allergy to peanuts
CPT/HCPCS: 94664; 96374; 96375; 96376; J1100; J1200; Z7502; Z7610

== ENCOUNTER 2018-06-26 12:29 | Emergency (ER) | payer OTHER ==
[~2018-06-26] VITALS: Ht 165.1 cm; Wt 68.2 kg
[~2018-06-26 12:29] MED LIST changes: +EPIN0.3P4 INJ
[2018-06-26 12:36] VITALS: Ht 165.1 cm; Wt 68.2 kg
--- NOTE | 2018-06-26 14:24 | ERD ---
ER Documentation Chief Complaint Chief Complaint R860, BACK PAIN, FELL OUT OF BED LAST NIGHT HPI 58-year-old female resents the emergency department complaining of back pain. Patient is well-known to this emergency department and myself personally with a history of chronic pain. Patient is a poor historian but states that she excellently fell out of bed last night and has been having pain down her entire back since then. She reports no numbness, tingling loss of function. I have reviewed the three dimensional map modeler pre-hospital care. Pre-hospital vital signs were reviewed. Pre-hospital diagnostic tests were reviewed. ROS All systems reviewed and are negative except as per history of present illness. Medications Home Meds Active Scripts Epinephrine (Epipen 2-Yassine) 0.3 Mg/0.3 Ml Pen.injctr, 1 EA INJ ONCE PRN for ALLERGIC REACTION, #1 EA Prov:ASHLEE VIVEROS MD 05/26/18 Reported Medications Temazepam* (Temazepam*) 30 Mg Capsule, 30 MG PO HS PRN for INSOMNIA, CAP 05/18/18 Carisoprodol* (Carisoprodol*) 350 Mg Tablet, 350 MG PO BID PRN for MUSCLE SPASMS, TAB 05/18/18 Albuterol Sulfate* (Proair HFA*) 8.5 Gm Hfa.aer.ad, 2 PUFF INH Q4H PRN for WHEEZING AND SOB, #1 INHALER 05/18/18 Fluticasone Propionate* (Flovent* HFA 110) 12 Gm Inha, 1 PUFF INHALATION BID, #1 INHALER 05/18/18 Benazepril Hcl* (Benazepril Hcl*) 40 Mg Tablet, 40 MG PO DAILY, #30 TAB 05/18/18 Ibuprofen* (Ibuprofen*) 600 Mg Tablet, 600 MG PO BID, TAB 05/18/18 Allergies Allergies: Coded Allergies: sulfamethoxazole (Unverified Allergy, Intermediate, HIVES, 05/26/18) trimethoprim (Unverified Allergy, Intermediate, HIVES, 05/26/18) amoxicillin (Unverified Allergy, Unknown, 05/26/18) clavulanic acid (Unverified Allergy, Unknown, 05/26/18) ketorolac (Unverified Allergy, Unknown, 05/26/18) phenytoin (Unverified Allergy, Unknown, HIVES, 05/26/18) PMhx/Soc History of Surgery: Yes (back surgery) Anesthesia Reaction: No Hx Neurological Disorder: No (CVA) Hx Respiratory Disorders: No Hx Cardiac Disorders: No Hx Psychiatric Problems: No Hx Miscellaneous Medical Probl: No Hx Alcohol Use: No Hx Substance Use: No Hx Tobacco Use: Yes Smoking Status: Current every day smoker Physical Exam Vitals Vital Signs Date Temp Pulse Resp B/P (MAP) Pulse Ox O2 O2 Flow FiO2 Time Delivery Rate 06/26/18 98.0 90 16 113/86 98 12:36 (95) Physical Exam GENERAL: The patient is well developed and appropriate for usual state of health in no apparent distress HEENT: Pupils equal, round, and reactive to light. EOMI. There is no scleral icterus. NECK: C-spine is soft and supple, there is no meningismus. There is no cervical lymphadenopathy. LUNGS: Clear to auscultation bilaterally. There are no rales, wheezes or rhonchi. HEART: Regular rate and rhythm, no murmurs, clicks, rubs or gallops. ABDOMEN: Soft, non-tender, non-distended. There are bowel sounds in all four quadrants. No rebound or guarding. EXTREMITIES: There is no peripheral cyanosis or edema. No focal swelling or erythema. Back: No midline spinal tenderness or outward evidence of trauma. NEURO: The patient moves all four extremities with 5/5 strength. Cranial nerves II - XII are intact. Normal gait. Alert and oriented SKIN: There is no apparent rash or petechiae. HEME/LYMPHATIC: There is no evidence of excessive bruising or lymphedema. PSYCHIATRIC: The patient does not appear anxious or depressed. Procedures/MDM Patient was taken to a room, seen and examined Radiology studies reviewed Medical decision makin-year-old female with a chronic pain syndrome presents the emergency department after falling out of bed. At this time there is no evidence of acute trauma or other high-risk injuries. She appears in her normal state of health and appropriate for outpatient care. Departure Diagnosis: Primary Impression: Fall Condition: Stable Patient Instructions: Chronic Pain JUSTIN JUAN Jun 26, 2018 14:24
[2018-06-26 14:59] VITALS: BP 136/89; PULSE 74; RESP 19
== END 2018-06-26 15:06 | disposition home or self-care (01) ==
LOC: E/R 12:29
DX: M54.9 Dorsalgia, unspecified (principal); F17.210 Nicotine dependence, cigarettes, uncomplicated; Z86.73 Personal history of transient ischemic attack (TIA), and cerebral infarction without residual deficits
CPT/HCPCS: 72128; 72131; Z7502

== ENCOUNTER 2018-07-27 14:06 | Emergency (ER) | payer OTHER ==
[~2018-07-27] VITALS: Wt 63.0 kg
[2018-07-27] MEDS ORDERED: CLIN300C10 PO (15:04)
[2018-07-27 16:05] VITALS: BP 118/75; PULSE 88; RESP 18
--- NOTE | 2018-07-27 16:48 | ERD ---
ER Documentation Chief Complaint Chief Complaint infection and swelling of right hand and wrist from cat bite few weeks ago HPI 58-year-old female presenting with right hand pain. She sustained a cat bite over 1 week ago. She was on another hospital where she received Augmentin prescription. However she states that this gave her a rash so she stopped taking it. She did have sutures placed at the outside hospital. She complains of mild pain around the bite area. She feels like her hand is slightly swollen as well. No fevers or chills. ROS All systems reviewed and are negative except as per history of present illness. Medications Home Meds Active Scripts Clindamycin Hcl* (Clindamycin Hcl*) 300 Mg Capsule, 300 MG PO TID for 7 Days, CAP Prov:CAROL PATEL MD 07/27/18 Epinephrine (Epipen 2-Yassine) 0.3 Mg/0.3 Ml Pen.injctr, 1 EA INJ ONCE PRN for ALLERGIC REACTION, #1 EA Prov:ASHLEE VIVEROS MD 05/26/18 Reported Medications Temazepam* (Temazepam*) 30 Mg Capsule, 30 MG PO HS PRN for INSOMNIA, CAP 05/18/18 Carisoprodol* (Carisoprodol*) 350 Mg Tablet, 350 MG PO BID PRN for MUSCLE SPASMS, TAB 05/18/18 Albuterol Sulfate* (Proair HFA*) 8.5 Gm Hfa.aer.ad, 2 PUFF INH Q4H PRN for WHEEZING AND SOB, #1 INHALER 05/18/18 Fluticasone Propionate* (Flovent* HFA 110) 12 Gm Inha, 1 PUFF INHALATION BID, #1 INHALER 05/18/18 Benazepril Hcl* (Benazepril Hcl*) 40 Mg Tablet, 40 MG PO DAILY, #30 TAB 05/18/18 Ibuprofen* (Ibuprofen*) 600 Mg Tablet, 600 MG PO BID, TAB 05/18/18 Allergies Allergies: Coded Allergies: sulfamethoxazole (Unverified Allergy, Intermediate, HIVES, 05/26/18) trimethoprim (Unverified Allergy, Intermediate, HIVES, 05/26/18) amoxicillin (Unverified Allergy, Unknown, 05/26/18) clavulanic acid (Unverified Allergy, Unknown, 05/26/18) ketorolac (Unverified Allergy, Unknown, 05/26/18) phenytoin (Unverified Allergy, Unknown, HIVES, 05/26/18) PMhx/Soc History of Surgery: Yes (back surgery, left bka, right ft sx) Anesthesia Reaction: No Hx Neurological Disorder: No (CVA) Hx Respiratory Disorders: Yes (COPD) Hx Cardiac Disorders: Yes (hypertension, CAD) Hx Psychiatric Problems: No Hx Miscellaneous Medical Probl: No (w/c dependent) Hx Alcohol Use: No Hx Substance Use: No Hx Tobacco Use: Yes (1/2pack/day) Smoking Status: Current every day smoker FmHx Family History: No diabetes Physical Exam Vitals Vital Signs Date Temp Pulse Resp B/P (MAP) Pulse Ox O2 O2 Flow FiO2 Time Delivery Rate 07/27/18 98.6 88 18 118/75 100 Room Air 16:05 (89) 07/27/18 98.6 94 18 129/78 99 Room Air 14:20 (95) 07/27/18 98.6 77 18 133/84 98 14:20 (100) Physical Exam Const: No acute distress Head: Atraumatic Eyes: Normal Conjunctiva Resp: No respiratory distress Skin: No petechiae or rashes. Well-healed laceration to the radial aspect of the right wrist with sutures in place. Mild surrounding erythema. No significant swelling. No swelling at the joint with full range of motion. Tendons intact. Sensations intact distally. 2+ radial pulse. Back: No midline or flank tenderness Ext: No cyanosis, or edema Neur: Awake and alert Psych: Normal Mood and Affect Procedures/MDM Patient presents with possible wound infection with a well-healed laceration. She is afebrile and hemodynamically stable. She is neurovascularly intact. Sti tches were removed. I recommended clindamycin for a few days to resolve any remaining infection but her wound does not look bad at this time. Patient is agreeable with this plan. Given her pain with movement, I did place a splint and she was neurovascularly intact after splint placement. Return precautions discussed. Patient's blood pressure was elevated (>120/80) but appears stable without evidence of hypertension emergency or urgency. The patient was counseled about the risks of hypertension and urged to pursue outpatient monitoring and therapy within a week with their primary care physician. Departure Diagnosis: Primary Impression: Cat bite of right wrist with infection Encounter type: initial encounter Qualified Codes: S61.551A - Open bite of right wrist, initial encounter; L08.9 - Local infection of the skin and subcutaneous tissue, unspecified; W55.01XA - Bitten by cat, initial encounter Condition: Stable Patient Instructions: Cat Bite, Wound Check, Lac F/U (Infected) Referrals: DOCTOR,NOT ON STAFF CAROL PATEL MD Jul 27, 2018 16:48
== END 2018-07-27 15:44 | disposition home or self-care (01) ==
LOC: E/R 14:06
DX: S61.551A Open bite of right wrist, initial encounter (principal); I25.10 Atherosclerotic heart disease of native coronary artery without angina pectoris; J44.9 Chronic obstructive pulmonary disease, unspecified; F17.210 Nicotine dependence, cigarettes, uncomplicated; L08.9 Local infection of the skin and subcutaneous tissue, unspecified; W55.01XA Bitten by cat, initial encounter; Y92.9 Unspecified place or not applicable; Z86.73 Personal history of transient ischemic attack (TIA), and cerebral infarction without residual deficits
CPT/HCPCS: 29125; Z7502

== ENCOUNTER 2018-09-02 12:40 | Emergency (ER) | payer OTHER ==
[~2018-09-02] VITALS: Ht 162.6 cm; Wt 62.0 kg
[~2018-09-02 12:40] MED LIST changes: +CLIN300C10 PO
[2018-09-02 12:57] VITALS: Ht 162.6 cm; Wt 62.0 kg
[2018-09-02] MEDS ORDERED: METHYLPREDNISOLONE 125 MG INJ IV STA (13:05)
[2018-09-02] MEDS ORDERED: ALBUTEROL 0.5% (NEB) 2.5 MG/0.5 ML AMP INH STA (13:05)
--- NOTE | 2018-09-02 14:05 | ERD ---
ER Documentation Chief Complaint Chief Complaint bib ra for sob , cough x 2 weeks HPI This is a 58-year-old female who is frequently seen here for COPD exacerbation is here complaining that she is having her chronic cough still as well as having some shortness of breath today that is consistent with her prior COPD exacerbations. She called EMS they were giving her neb treatment in route. She had no chest pain no fever. ROS All systems reviewed and are negative except as per history of present illness. Medications Home Meds Reported Medications Temazepam* (Temazepam*) 30 Mg Capsule, 30 MG PO HS PRN for INSOMNIA, CAP 05/18/18 Carisoprodol* (Carisoprodol*) 350 Mg Tablet, 350 MG PO BID PRN for MUSCLE SPASMS, TAB 05/18/18 Albuterol Sulfate* (Proair HFA*) 8.5 Gm Hfa.aer.ad, 2 PUFF INH Q4H PRN for WHEEZING AND SOB, #1 INHALER 05/18/18 Fluticasone Propionate* (Flovent* HFA 110) 12 Gm Inha, 1 PUFF INHALATION BID, #1 INHALER 05/18/18 Benazepril Hcl* (Benazepril Hcl*) 40 Mg Tablet, 40 MG PO DAILY, #30 TAB 05/18/18 Ibuprofen* (Ibuprofen*) 600 Mg Tablet, 600 MG PO BID, TAB 05/18/18 Discontinued Scripts Clindamycin Hcl* (Clindamycin Hcl*) 300 Mg Capsule, 300 MG PO TID for 7 Days, CAP Prov:CAROL PATEL MD 07/27/18 Epinephrine (Epipen 2-Yassine) 0.3 Mg/0.3 Ml Pen.injctr, 1 EA INJ ONCE PRN for ALLERGIC REACTION, #1 EA Prov:ASHLEE VIVEROS MD 05/26/18 Allergies Allergies: Coded Allergies: sulfamethoxazole (Unverified Allergy, Intermediate, HIVES, 09/02/18) trimethoprim (Unverified Allergy, Intermediate, HIVES, 09/02/18) amoxicillin (Unverified Allergy, Unknown, 09/02/18) clavulanic acid (Unverified Allergy, Unknown, 09/02/18) ketorolac (Unverified Allergy, Unknown, 09/02/18) phenytoin (Unverified Allergy, Unknown, HIVES, 09/02/18) PMhx/Soc History of Surgery: Yes (back surgery, left bka, right ft sx) Anesthesia Reaction: No Hx Neurological Disorder: No (CVA) Hx Respiratory Disorders: Yes (COPD) Hx Cardiac Disorders: Yes (hypertension, CAD) Hx Psychiatric Problems: No Hx Miscellaneous Medical Probl: No (w/c dependent) Hx Alcohol Use: No Hx Substance Use: No Hx Tobacco Use: Yes (1/2pack/day) Smoking Status: Current every day smoker FmHx Family History: No coronary disease Physical Exam Vitals Vital Signs Date Temp Pulse Resp B/P (MAP) Pulse Ox O2 O2 Flow FiO2 Time Delivery Rate 09/02/18 Nasal 2.0 13:40 Cannula 09/02/18 98 20 99 Nasal 2.0 28 13:36 Cannula 09/02/18 Nasal 2 13:20 Cannula 09/02/18 98.2 92 18 112/77 98 12:57 (89) Physical Exam Const: Well-developed, well-nourished Head: Atraumatic, normocephalic Eyes: Normal Conjunctiva, PERRLA, EOMI, normal sclera, no nystagmus ENT: Normal External Ears, Nose and Mouth, moist mucus membranes. Neck: Full range of motion. No meningismus, no lymphadenopathy. Resp: [There is moderate increased work of breathing with distant breath sounds consistent with COPD Cardio: Regular rate and rhythm, no murmurs, S1 S2 present Abd: Soft, non tender x 4, non distended. Normal bowel sounds, no guarding or rebound, no pulsitile abdominal masses or bruits Skin: No petechiae or rashes, no ecchymosis , no maculopapular rash Back: No midline or flank tenderness Ext: No cyanosis, or edema, FROM x 4, normal inspection, neurovascularly intact x 4 Neur: Awake and alert, STR 5/5 x 4, sensation intact x 4, no focal findings, cerebellum intact Psych: Normal Mood and Affect Result Diagram: 09/02/18 1317 09/02/18 1317 Results 24 hrs Laboratory Tests Test 09/02/18 13:17 White Blood Count 12.7 10^3/ul Red Blood Count 4.00 10^6/ul Hemoglobin 11.5 g/dl Hematocrit 35.5 % Mean Corpuscular Volume 88.8 fl Mean Corpuscular Hemoglobin 28.8 pg Mean Corpuscular Hemoglobin Concent 32.4 g/dl Red Cell Distribution Width 15.8 % Platelet Count 433 10^3/UL Mean Platelet Volume 9.4 fl Immature Granulocytes % 0.600 % Neutrophils % 68.6 % Lymphocytes % 20.7 % Monocytes % 9.6 % Eosinophils % 0.2 % Basophils % 0.3 % Nucleated Red Blood Cells % 0.0 /100WBC Immature Granulocytes # 0.080 10^3/ul Neutrophils # 8.7 10^3/ul Lymphocytes # 2.6 10^3/ul Monocytes # 1.2 10^3/ul Eosinophils # 0.0 10^3/ul Basophils # 0.0 10^3/ul Nucleated Red Blood Cells # 0.0 10^3/ul Sodium Level 141 mmol/L Potassium Level 4.0 mmol/L Chloride Level 109 mmol/L Carbon Dioxide Level 18 mmol/L Anion Gap 14 Blood Urea Nitrogen 33 mg/dl Creatinine 1.11 mg/dl Est Glomerular Filtrat Rate mL/min 50 mL/min Glucose Level 111 mg/dl Calcium Level 10.1 mg/dl Troponin I < 0.012 ng/ml Current Medications Medications Dose Sig/Migel Start Time Status Last (Trade) Ordered Route PRN Stop Time Admin Dose Reason Admin Albuterol 10 mg ONCE STAT 09/02/18 DC 09/02/18 (Proventil INH 13:05 13:32 0.5% (Neb)) 09/02/18 13:08 125 mg ONCE STAT 09/02/18 DC 09/02/18 Methylprednis IV 13:05 13:19 olone Sodium 09/02/18 13:08 Succinate (Solu-Medrol) Procedures/MDM Ordering MD: SANYA MILLER DO Location: E/R Room/Bed: PROCEDURE: XR Chest. CLINICAL INDICATION: Shortness of breath. TECHNIQUE: Single frontal view. COMPARISON: 07/17/2018. FINDINGS: There is interstitial disease bilaterally in the mid and lower lung zones, unchanged. The lungs are otherwise clear. The heart size is normal. There is calcification in the aorta consistent with atherosclerosis. There is no pleural effusion or pneumothorax. There is hardware in the cervical spine. IMPRESSION: 1. No change from the 07/17/2018 chest radiograph. RPTAT: QQ .Raman Acevedo MD, Date Time Electronically viewed and signed by .Raman Acevedo MD, on 09/02/2018 13:33 .R/ CC: SANYA MILLER DO [phone] Patient is feeling much better after treatments and steroids Will discharge home on prednisone albuterol inhaler Departure Diagnosis: Primary Impression: COPD exacerbation Condition: Stable SANYA MILLER DO Sep 02, 2018 14:05
[2018-09-02 14:30] VITALS: BP 120/80; PULSE 87; RESP 20
[2018-09-02] MEDS ORDERED: PRED20TA PO (14:52)
[2018-09-02] MEDS ORDERED: ALBU8.5H8 INH (14:52)
== END 2018-09-02 15:31 | disposition home or self-care (01) ==
LOC: E/R 12:40
DX: J44.1 Chronic obstructive pulmonary disease with (acute) exacerbation (principal); I25.10 Atherosclerotic heart disease of native coronary artery without angina pectoris; I10 Essential (primary) hypertension; F17.210 Nicotine dependence, cigarettes, uncomplicated; Z86.73 Personal history of transient ischemic attack (TIA), and cerebral infarction without residual deficits
CPT/HCPCS: 71045; 80048; 84484; 85025; 93005; 94664; 96374; J2930; Z7502; Z7610

== ENCOUNTER 2018-09-05 11:10 | Inpatient (IN) | payer OTHER ==
[2018-09-05] VITALS (7 sets, daily range): BP systolic 133–147; BP diastolic 81–89; PULSE 97–119; RESP 18–21; Ht 157.5 cm; Wt 59.9 kg
[~2018-09-05] VITALS: Ht 157.5 cm; Wt 59.9 kg
[~2018-09-05 11:10] MED LIST changes: -CLIN300C10 PO; -EPIN0.3P4 INJ; +PRED20TA PO
[2018-09-05] MEDS ORDERED: ALBUTEROL 0.5% (NEB) 2.5 MG/0.5 ML AMP INH STA (11:16)
[2018-09-05] MEDS ORDERED: IPRATROPIUM (NEB) 0.5 MG/2.5 ML AMP INH STA (11:16)
[2018-09-05] MEDS ORDERED: METHYLPREDNISOLONE 125 MG INJ IV STA (11:16)
[2018-09-05] MEDS ORDERED: SODIUM CHLORIDE 0.9% 1L BAG IV* STA (12:32)
[2018-09-05] MEDS ORDERED: ONDANSETRON 4 MG INJ IV STA (12:35)
[2018-09-05] MEDS ORDERED: morphine 2 MG INJ IV STA (12:35)
[2018-09-05] MEDS ORDERED: AZITHROMYCIN 500MG/NS (PMX) 250 ML IV STA (12:39)
[2018-09-05] MEDS ORDERED: CEFTRIAXONE 1 GM/50 ML (PMX) 50 ML IVPB STA (12:39)
[2018-09-05] MEDS ORDERED: DIPHENHYDRAMINE 50 MG INJ ONE (13:21)
[2018-09-05] MEDS ORDERED: DIPHENHYDRAMINE 50 MG INJ IV ONE (13:30)
--- NOTE | 2018-09-05 14:03 | ERD ---
ER Documentation Chief Complaint Chief Complaint BIB RA FOR EVAL OF SOB. CPAP BY EMS HPI 58-year-old female with a history of COPD, hypertension, CVA and anxiety presents to the ED via rescue ambulance complaining of a 3-day history of worsening shortness of breath. Denies chest pain or palpitations. Chronic non productive cough but no URI symptoms, rhinorrhea or dislocation. No leg pain or swelling. No abdominal pain, nausea vomiting. Complaining of mild, gradual onset, generalized, pressure like headache. Denies any new focal weakness or numbness. No fevers or chills. History is limited due to the constraints imposed by the patient's clinical condition. ROS All systems reviewed and are negative except as per history of present illness. Medications Home Meds Active Scripts Albuterol Sulfate* (Proair HFA*) 8.5 Gm Hfa.aer.ad, 2 PUFF INH Q4, #1 INHALER Prov:SANYA MILLER DO 09/02/18 Prednisone* (Prednisone*) 20 Mg Tab, 60 MG PO DAILY for 5 Days, TAB Prov:SANYA MILLER DO 09/02/18 Reported Medications Temazepam* (Temazepam*) 30 Mg Capsule, 30 MG PO HS PRN for INSOMNIA, CAP 05/18/18 Carisoprodol* (Carisoprodol*) 350 Mg Tablet, 350 MG PO BID PRN for MUSCLE SPASMS, TAB 05/18/18 Fluticasone Propionate* (Flovent* HFA 110) 12 Gm Inha, 1 PUFF INHALATION BID, #1 INHALER 05/18/18 Benazepril Hcl* (Benazepril Hcl*) 40 Mg Tablet, 40 MG PO DAILY, #30 TAB 05/18/18 Ibuprofen* (Ibuprofen*) 600 Mg Tablet, 600 MG PO BID, TAB 05/18/18 Discontinued Reported Medications Albuterol Sulfate* (Proair HFA*) 8.5 Gm Hfa.aer.ad, 2 PUFF INH Q4H PRN for WHEEZING AND SOB, #1 INHALER 05/18/18 Allergies Allergies: Coded Allergies: sulfamethoxazole (Unverified Allergy, Intermediate, HIVES, 09/05/18) trimethoprim (Unverified Allergy, Intermediate, HIVES, 09/05/18) amoxicillin (Unverified Allergy, Unknown, 09/05/18) clavulanic acid (Unverified Allergy, Unknown, 09/05/18) ketorolac (Unverified Allergy, Unknown, 09/05/18) phenytoin (Unverified Allergy, Unknown, HIVES, 09/05/18) PMhx/Soc History of Surgery: Yes (back surgery, left bka, right ft sx) Anesthesia Reaction: No Hx Neurological Disorder: No (CVA) Hx Respiratory Disorders: Yes (COPD) Hx Cardiac Disorders: Yes (hypertension, CAD) Hx Psychiatric Problems: No Hx Miscellaneous Medical Probl: No (w/c dependent) Hx Alcohol Use: No Hx Substance Use: No Hx Tobacco Use: Yes (1/2pack/day) Smoking Status: Current every day smoker FmHx No family history relevant to presenting complaint Physical Exam Vitals Temp: 96.9. Pulse: 121. Respirations: 24. Blood pressure: 127/86. O2 satura tion 97% on CPAP. Physical Exam GENERAL: Alert. Severe respiratory distress SKIN: Warm, dry, no rash, No petechiae. No ecchymoses or bruising. HEAD: Atraumatic NECK: Supple, nontender, full range of motion. No lymphadenopathy or masses. No JVD. No stridor EYES: Conjunctiva, not injected, sclera anicteric. ENT: Mucous membranes are moist. Thrush CARDIOVASCULAR: Tachycardic. Regular rate and rhythm, S1, S2, No murmurs, rubs or gallops. No peripheral edema Pulses are 4+ in all extremities. RESPIRATORY: Breath sounds markedly diminished bilaterally with expiratory wheezing and prolonged expiratory phase. Positive use of accessory muscles of respiration. CHEST WALL: No tenderness or deformity. No ecchymosis or bruising GASTROINTESTINAL: Bowel sounds present, nondistended. Soft, nontender, no rebound or guarding. No masses or abnormal pulsations. BACK: No spinal tenderness or paraspinal muscle spasm. No costovertebral angle tenderness. MUSCULOSKELETAL: Normal ROM, no deformity. No calf swelling or tenderness Status post left BKA NEUROLOGIC: Alert and oriented. Facial droop. Motor and sensory equal bilaterally. LYMPHATICS: No lymphadenopathy or lymphedema. PSYCHIATRIC: Anxious. Results 24 hrs Laboratory Tests Test 09/05/18 11:27 09/05/18 12:52 White Blood Count 13.7 10^3/ul Red Blood Count 4.17 10^6/ul Hemoglobin 12.0 g/dl Hematocrit 37.3 % Mean Corpuscular Volume 89.4 fl Mean Corpuscular Hemoglobin 28.8 pg Mean Corpuscular Hemoglobin Concent 32.2 g/dl Red Cell Distribution Width 15.9 % Platelet Count 533 10^3/UL Mean Platelet Volume 9.1 fl Immature Granulocytes % 2.500 % Neutrophils % 76.6 % Lymphocytes % 17.0 % Monocytes % 3.4 % Eosinophils % 0.1 % Basophils % 0.4 % Nucleated Red Blood Cells % 0.0 /100WBC Immature Granulocytes # 0.340 10^3/ul Neutrophils # 10.5 10^3/ul Lymphocytes # 2.3 10^3/ul Monocytes # 0.5 10^3/ul Eosinophils # 0.0 10^3/ul Basophils # 0.1 10^3/ul Nucleated Red Blood Cells # 0.0 10^3/ul Sodium Level 146 mmol/L Potassium Level 4.0 mmol/L Chloride Level 113 mmol/L Carbon Dioxide Level 22 mmol/L Anion Gap 11 Blood Urea Nitrogen 45 mg/dl Creatinine 1.00 mg/dl Est Glomerular Filtrat Rate mL/min 57 mL/min Glucose Level 135 mg/dl Calcium Level 9.7 mg/dl Troponin I < 0.012 ng/ml POC Venous Lactate 1.4 mmol/L Current Medications Medications Dose Sig/Migel Start Time Status Last (Trade) Ordered Route PRN Stop Time Admin Dose Reason Admin Albuterol 15 mg ONCE STAT 09/05/18 DC 09/05/18 (Proventil INH 11:16 09/05/18 11:33 0.5% (Neb)) 11:19 Ipratropium 1 mg ONCE STAT 09/05/18 DC 09/05/18 [place] INH 11:16 09/05/18 11:33 (Atrovent 11:19 0.02% (Neb)) 125 mg ONCE STAT 09/05/18 DC 09/05/18 Methylprednis IV 11:16 09/05/18 11:29 olone Sodium 11:19 Succinate (Solu-Medrol) Sodium 1,800 ml BOLUS OVER 2 09/05/18 DC 09/05/18 Chloride HOURS STAT 12:32 09/05/18 12:54 (NS) IV* 12:35 Morphine 4 mg ONCE STAT 09/05/18 DC 09/05/18 Sulfate IV 12:35 09/05/18 12:54 (morphine) 12:39 Ondansetron 4 mg ONCE STAT 09/05/18 DC 09/05/18 HCl (Zofran IV 12:35 09/05/18 12:54 Inj) 12:39 Ceftriaxone 50 ml @ ONCE STAT 09/05/18 DC 09/05/18 Sodium 100 mls/hr IVPB 12:39 09/05/18 12:55 13:08 Azithromycin 250 ml @ ONCE STAT 09/05/18 DC 09/05/18 250 mls/hr IV 12:39 09/05/18 14:18 13:38 25 mg ONCE ONCE 09/05/18 DC 09/05/18 Diphenhydrami IV 13:30 09/05/18 13:33 ne HCl 13:31 (Benadryl) 50 mg STK-MED 09/05/18 DC Diphenhydrami ONCE .ROUTE 13:21 09/05/18 ne HCl 13:22 (Benadryl) Procedures/MDM DOCUMENTS REVIEWED: ED nurse, prior ED, prior records, EMS report EKG: Time: 11:24. Sinus tachycardia. Ventricular rate 114. Normal MS QRS. Septal Q waves in leads V1 and V2. No acute ST segment elevation or depression. No ectopy. My Interpretation IMAGING: PROCEDURE: XR Chest AP portable CLINICAL INDICATION: Asthma exacerbation TECHNIQUE: An AP portable radiograph of the chest was submitted. COMPARISON: 09/02/2018 FINDINGS: Support Hardware: None Cardiovascular: The cardiovascular silhouette appears unremarkable. Lung Roth: There is again interstitial prominence seen diffusely through the lung roth most prominent at the lung bases. No nodule or air space opacification is evident. Pleural Spaces: No pneumothorax or pleural effusion is identified. Osseous Structures: Fixation hardware projects to the inferior cervical spine and cervical thoracic spine junction. Soft Tissues: The soft tissues appear unremarkable. IMPRESSION: 1. Persistent interstitial prominence seen diffusely through the lung roth most dense at the lung bases. This likely represents chronic interstitial scarring, however superimposed acute interstitial disease cannot entirely be excluded. No effusion is evident. 2. The cardiovascular silhouette is stable and unremarkable. 3. Previous cervical thoracic spine surgery with hardware in place, unchanged. Physician Immanuel Date Time Electronically viewed and signed by Physician Immanuel on 09/05/2018 11:49 RH/ PROCEDURE: CT Brain without contrast. CLINICAL INDICATION: Headache. Reported history of stroke. TECHNIQUE: A CT of the brain was performed on a multi-slice CT scanner utilizing axial imaging from the skull base through the vertex without intravenous contrast. Multiplanar reformatted images were made. One or more the following dose reduction techniques were utilized: Automated exposure control, adjustment of the mA/ or kV according to patient's size, or use of iterative reconstruction technique. DICOM images are available for review. The CTDIvol is 38.2 mGy and the DLP is 634.2 mGycm. COMPARISON: CT BRAIN 01/14/2018 FINDINGS: There is motion artifact, though the study is of gross diagnostic quality. There is no intracranial hemorrhage, mass effect, or midline shift. No extra-axial fluid collection is seen. Mild age-related cerebral volume loss is identified with compensatory ventricular and sulcal enlargement. Mild decreased atte nuation is seen in the periventricular and deep white matter, compatible with microvascular ischemic disease. There may be a small chronic infarct in the left cerebellum, suboptimally evaluated due to motion. Hypodensity was seen previously in this region. The jennings white matter differentiation is well preserved with no acute infarct detected. Calvarium is intact. Postsurgical changes from posterior fusion of the upper cervical spine is incompletely assessed. Chronic nasal bone deformities are seen. Mild to moderate acute on chronic sinusitis is seen in the right sphenoid. IMPRESSION: 1. No evidence of acute intracranial pathology. The brain is grossly stable appearance. 2. Mild diffuse age-related volume loss. 3. There is mild microvascular ischemic disease in the periventricular and deep white matter. Possible small chronic left cerebellar infarct, suboptimally evaluated on this study as outlined above. RPTAT: AA .Sandra Combs MD, MD Date Time Electronically viewed and signed by .Sandra Combs MD, MD on 09/05/2018 14:19 .H/ CRITICAL CARE TIME: Due to the high probability of sudden clinically significant respiratory, hemodynamic and cardiovascular deterioration, this patient with acute respiratory failure due to COPD exacerbation required multiple, frequent reevaluations of vital signs and response to therapy. Additional critical care time was spent in obtaining supplemental history from EMS, extensive review of prior medical records, interpretation of relevant clinical data as well as arranging for admission and ongoing care with Dr. Post. TOTAL CRITICAL CARE TIME: 35 minutes not including other separately reportable procedures. MEDICAL DECISION MAKIN-year-old female with a history of COPD, hypertension, CVA and anxiety presents to the ED via rescue ambulance complaining of a 3-day history of worsening shortness of breath. CBC significant for mild leukocytosis of 13.7 but no anemia. Chemistry reveals mild hyponatremia and elevated BUN with normal creatinine consistent with dehydration but no acute electrolyte abnormalities. Troponin is negative. Patient refused arterial blood gas to evaluate for CO2 retention. Patient presents in acute respiratory failure and was treated aggressively with BiPAP, nebulized beta agonist and intravenous corticosteroids. Chest x-ray reveals interstitial disease but as an infiltrate/pneumonia cannot be definitively ruled out antibiotics are administered after cultures for community-acquired pneumonia. Multiple criteria for systemic inflammatory response syndrome but no definitive infectious source identified. Lactate is 1.4 mmol/L. Normal saline 30 cc/kg fluid bolus is given and antibiotics after cultures for possible community- acquired pneumonia. No criteria for severe sepsis or septic shock. Headache of uncertain etiology. CT of the brain to evaluate for hemorrhage, infarct, mass and hydrocephalus is unremarkable. Presentation not consistent with subarachnoid hemorrhage or meningitis hence lumbar puncture not indicated. Admit to telemetry for further evaluation and management. PATIENT CARE TRANSITIONED: Time: 13:10, Dr. Post. Departure Diagnosis: Primary Impression: Acute dyspnea Additional Impressions: Acute respiratory failure Respiratory failure complication: unspecified whether with hypoxia or hypercapnia Qualified Codes: J96.00 - Acute respiratory failure, unspecified whether with hypoxia or hypercapnia COPD with acute exacerbation Headache Headache type: unspecified Headache chronicity pattern: unspecified pattern Intractability: not intractable Qualified Codes: R51 - Headache Condition: Critical RAYMUNDO YOUSSEF MD September 05, 2018 14:03
[2018-09-05] MEDS ORDERED: ACETAMINOPHEN 325 MG TAB PO PRN (14:30)
[2018-09-05] MEDS ORDERED: ONDANSETRON 4 MG INJ IV PRN (14:30)
[2018-09-05] MEDS ORDERED: LORAZEPAM 2 MG INJ IM STA (15:23)
[2018-09-05] MEDS ORDERED: CARISOPRODOL 350 MG TAB PO PRN (18:30)
[2018-09-05] MEDS ORDERED: ACETAMINOPHEN 500 MG TAB PO PRN (18:30)
[2018-09-05] MEDS ORDERED: KETOROLAC 15 MG INJ IV PRN (20:30)
[2018-09-05] MEDS: FLUCONAZOLE 100 MG TAB PO SCH (20:48)
[2018-09-05] MEDS: 1/2 NS + KCL 20 MEQ 1,000 ML IV SCH (20:48)
[2018-09-05] MEDS: CEFTRIAXONE 1 GM/50 ML (PMX) 50 ML IVPB SCH (20:48)
[2018-09-05] MEDS: ALBUTEROL HFA 8 GM INHALER INH SCH (21:00)
[2018-09-05] MEDS: ALBUTEROL/IPRATROPIUM (NEB) 3 ML AMP HHN SCH (21:05)
[2018-09-05] MEDS: ENOXAPARIN 40 MG/0.4 ML SYG SC SCH (21:28)
--- NOTE | 2018-09-05 21:30 | HP ---
DATE OF ADMISSION: 09/05/2018 CHIEF COMPLAINT: Shortness of breath and cough. HISTORY OF PRESENT ILLNESS: The patient is a 58-year-old female with history of COPD, but continues to smoke, also is status post left below knee amputation secondary to trauma several years ago. The patient uses a wheelchair to get around. The patient reported that for the last several days she has been having cough and hoarseness of voice and getting increasingly short of breath. The patient turner s not have a nebulizer; however, she uses home O2 as well as was using Flovent and beta agonist inhal er. The patient recently also took systemic steroids; however, continued to remain symptomatic and t herefore decided to come to the ER. The patient also reported recent fall and was complaining of hea dache. Denies any chest pain, no reported hemoptysis, ____ leg edema or edema in the left BKA stump. No abdominal pain, no vomiting. The patient did have hoarseness of voice for last couple of days. The patient only quit smoking 4 days ago. No dizziness, no syncope, no hematemesis or melena. The patient was complaining of generalized pain also. Patient is being admitted for further evaluation a nd management. PAST MEDICAL HISTORY: As stated above, the patient has had multiple ER visit due to COPD and other m ultiple complaints. The patient's last admission was back in 05/2018 due to some sort of allergic re action. ALLERGIES: SULFA, AUGMENTIN, TORADOL, PHENYTOIN. PAST SURGICAL HISTORY: The patient is status post left BKA in 2006. Next surgery in 2004. Patient also status post hysterectomy. Also reported history of stroke in the past, although MRI several yea rs ago revealed subcortical and periventricular areas of gliosis reflecting of small vessel disease. FAMILY HISTORY: Multiple family members have COPD. MEDICATION LIST: Reviewed. PHYSICAL EXAMINATION: GENERAL: The patient is awake, alert, fairly oriented. VITAL SIGNS: Temperature 98.1, pulse 101, respirations 18, blood pressure 140/84, O2 saturation 93% on 3 to nasal cannula. Prior to switching her to nasal cannula, patient required BiPAP and BiPAP sup port in the ER. ABG refused by patient, although previous ABG back in 2011 did reveal mild CO2 retai crys tendency with pCO2 of 46.7. HEENT: Conjunctivae and lids normal. Nose are normal. Oropharynx reveals thrush. NECK: No mass. Scar of previous surgery. CHEST: Diminished bilateral air entry and wheezing. CARDIOVASCULAR: S1, S2 normal. ABDOMEN: Soft, nontender. EXTREMITIES: Right leg has no edema. Pedal pulses palpable in the right leg. Left leg, the patient has BKA knee. NEUROLOGIC: The patient is awake, alert, fairly oriented, although does have hoarseness of voice. LABORATORY DATA: Done in the ER, WBC 13.7, hemoglobin 12, platelets 533. Sodium 146, potassium 4, B UN 45, creatinine 1, glucose 135, calcium 9.7. Lactate 1.4. Troponin negative. Chest x-ray done in the ER revealed persistent interstitial prominence seen diffusely through the lung field presenting chronic interstitial scarring, previous cervical and thoracic spine surgery with hardware in place, u nchanged. CT of the brain was also done, which did not reveal any acute changes, other than mild alexis rovascular ischemic disease in the periventricular deep white matter, possible small chronic left cer ebral infarct suboptimally evaluated on this study. IMPRESSION: 1. Acute respiratory failure due to COPD exacerbation. The patient will be started on supplemental oxygen, breathing treatment, IV steroid, IV antibiotic. 2. Headache. The patient's CT scan of the head is negative. The patient is refusing ABG to see if she has a retained CO2 and also is refusing further placement of BiPAP. 3. Chronic neck pain. No acute issue. 4. Left BKA. 5. Hypertension. Continue benazepril. 6. Oral thrush. We will start her on Diflucan. 7. For DVT prophylaxis, we will give Lovenox due to small vessel disease and history of continued sm oking, we will start her on baby aspirin also. Further recommendation will depend upon patient's hospital course. If the patient does not improve b y tomorrow, then we will obtain pulmonary consultation from Dr. Mesa's group. I strongly advised her to quit smoking and also offered nicotine patch; however, she refused. Dictated By: KIA THOMPSON/ELISE Conf#: [id number] DID#: [id number]
[2018-09-06] VITALS (12 sets, daily range): BP systolic 111–147; BP diastolic 61–78; PULSE 84–110; RESP 18–21
[2018-09-06] MEDS: METHYLPREDNISOLONE 40 MG INJ IV SCH ×4 (00:46→18:07)
[2018-09-06] MEDS: HYDROCODONE/APAP (5/325) TAB PO PRN (01:06)
[2018-09-06] MEDS: ALBUTEROL/IPRATROPIUM (NEB) 3 ML AMP HHN SCH ×4 (02:09→19:54)
[2018-09-06] MEDS: ALBUTEROL HFA 8 GM INHALER INH SCH ×6 (02:17→23:25)
[2018-09-06] MEDS: 1/2 NS + KCL 20 MEQ 1,000 ML IV SCH (08:48)
[2018-09-06] MEDS: ENOXAPARIN 40 MG/0.4 ML SYG SC SCH (09:00)
--- NOTE | 2018-09-06 09:52 | PN ---
Date/Time of Note Date/Time of Note DATE: 09/06/18 TIME: 09:41 Assessment/Plan VTE Prophylaxis Risk score (from Nsg)>0 risk: 3 SCD applied (from Nsg): Yes Lines/Catheters IV Catheter Type (from Nrsg): [place] Assessment/Plan Assessment/Plan - Acute respiratory failure due to COPD exacerbation. - on supplemental oxygen, breathing treatment, IV steroid, IV antibiotic. - Headache. - CT head is negative. - refused ABG to see if she has a retained CO2 - refusing further placement of BiPAP. - pulmonary consult- NTIFIED - Chronic neck pain. No acute issue. - Left BKA. - Hypertension. Continue benazepril. - Oral thrush. on Diflucan. - Current smoker - advised to quit smoking - offered nicotine patch; however, she refused. - For DVT prophylaxis, we will give Lovenox due to small vessel disease and his tory of continued smoking, we will start her on baby aspirin also. Further recommendation will depend upon patient's hospital course. Result Diagram: 09/05/18 1127 09/05/18 1127 Results 24hrs Laboratory Tests Test 09/05/18 11:27 09/05/18 12:52 09/05/18 15:40 White Blood Count 13.7 H Red Blood Count 4.17 L Hemoglobin 12.0 Hematocrit 37.3 Mean Corpuscular Volume 89.4 Mean Corpuscular Hemoglobin 28.8 L Mean Corpuscular 32.2 Hemoglobin Concent Red Cell Distribution Width 15.9 H Platelet Count 533 #H Mean Platelet Volume 9.1 Immature Granulocytes % 2.500 H Neutrophils % 76.6 Lymphocytes % 17.0 Monocytes % 3.4 Eosinophils % 0.1 Basophils % 0.4 Nucleated Red Blood Cells % 0.0 Immature Granulocytes # 0.340 H Neutrophils # 10.5 H Lymphocytes # 2.3 Monocytes # 0.5 Eosinophils # 0.0 Basophils # 0.1 Nucleated Red Blood Cells # 0.0 Sodium Level 146 H Potassium Level 4.0 Chloride Level 113 H Carbon Dioxide Level 22 Anion Gap 11 Blood Urea Nitrogen 45 H Creatinine 1.00 Est Glomerular Filtrat 57 L Rate mL/min Glucose Level 135 Calcium Level 9.7 Troponin I < 0.012 POC Venous Lactate 1.4 Urine Color YELLOW Urine Clarity SLIGHTLY CLOUDY A Urine pH 5.0 Urine Specific [place] 1.020 Urine Ketones NEGATIVE Urine Nitrite NEGATIVE Urine Bilirubin NEGATIVE Urine Urobilinogen NEGATIVE Urine Leukocyte Esterase NEGATIVE Urine Microscopic RBC 1 Urine Microscopic WBC 1 Urine Hemoglobin NEGATIVE Urine Glucose NEGATIVE Urine Total Protein NEGATIVE Subjective 24 Hr Interval Summary Constitutional: requiring O2 Exam/Review of Systems Exam Vitals Vital Signs Date Temp Pulse Resp B/P (MAP) Pulse Ox O2 O2 Flow FiO2 Time Delivery Rate 09/06/18 92 08:00 09/06/18 98.0 20 136/64 97 Room Air 07:33 (88) 09/06/18 3.0 05:00 09/06/18 27 02:10 Intake and Output 09/05/18 09/05/18 09/06/18 1515:00 23:00 07:00 IntakeIntake Total 750 ml BalanceBalance 750 ml Results Results 24hrs Laboratory Tests Test 09/05/18 11:27 09/05/18 12:52 09/05/18 15:40 White Blood Count 13.7 H Red Blood Count 4.17 L Hemoglobin 12.0 Hematocrit 37.3 Mean Corpuscular Volume 89.4 Mean Corpuscular Hemoglobin 28.8 L Mean Corpuscular 32.2 Hemoglobin Concent Red Cell Distribution Width 15.9 H Platelet Count 533 #H Mean Platelet Volume 9.1 Immature Granulocytes % 2.500 H Neutrophils % 76.6 Lymphocytes % 17.0 Monocytes % 3.4 Eosinophils % 0.1 Basophils % 0.4 Nucleated Red Blood Cells % 0.0 Immature Granulocytes # 0.340 H Neutrophils # 10.5 H Lymphocytes # 2.3 Monocytes # 0.5 Eosinophils # 0.0 Basophils # 0.1 Nucleated Red Blood Cells # 0.0 Sodium Level 146 H Potassium Level 4.0 Chloride Level 113 H Carbon Dioxide Level 22 Anion Gap 11 Blood Urea Nitrogen 45 H Creatinine 1.00 Est Glomerular Filtrat 57 L Rate mL/min Glucose Level 135 Calcium Level 9.7 Troponin I < 0.012 POC Venous Lactate 1.4 Urine Color YELLOW Urine Clarity SLIGHTLY CLOUDY A Urine pH 5.0 Urine Specific [place] 1.020 Urine Ketones NEGATIVE Urine Nitrite NEGATIVE Urine Bilirubin NEGATIVE Urine Urobilinogen NEGATIVE Urine Leukocyte Esterase NEGATIVE Urine Microscopic RBC 1 Urine Microscopic WBC 1 Urine Hemoglobin NEGATIVE Urine Glucose NEGATIVE Urine Total Protein NEGATIVE Medications Medication Current Medications Methylprednisolone Sodium Succinate (Solu-Medrol) 40 mg Q6 IV Last administered on 09/06/18at 05:41; Admin Dose 40 MG; Start 5/3/19 at 00:00 Albuterol/ Ipratropium (Duoneb) 3 ml Q6H RESP THERAPY HHN Last administered on 09/06/18 02:09; Admin Dose 3 ML; Start 09/05/18 at 20:00 Ceftriaxone Sodium 50 ml @ 100 mls/hr Q24H IVPB Last administered on 09/05/18 20:48; Admin Dose 100 MLS/HR; Start 09/05/18 at 18:30 Acetaminophen (Tylenol Tab) 500 mg Q4H PRN PO MILD PAIN(1-3)OR ELEVATED TEMP; Start 09/05/18 at 18:30 Fluconazole (Diflucan) 100 mg DAILY PO Last administered on 09/05/18 20:48; Admin Dose 100 MG; Start 09/05/18 at 18:30 Enoxaparin Sodium (Lovenox) 40 mg DAILY SC Last administered on 09/05/18 21:28; Admin Dose 40 MG; Start 09/05/18 at 18:30 Potassium Chloride/Sodium Chloride 1,000 ml @ 70 mls/hr [id number] IV Last admin istered on 09/05/18 20:48; Admin Dose 70 MLS/HR; Start 09/05/18 at 18:30 Albuterol (Ventolin Hfa) 2 puff Q4H RESP THERAPY INH Last administered on 09/06/18 08:02; Admin Dose 2 PUFF; Start 09/05/18 at 21:00 Benazepril HCl (Lotensin) 40 mg DAILY PO ; Start 09/06/18 at 09:00 Carisoprodol (Soma) 350 mg BID PRN PO MUSCLE SPASMS Last administered on 09/06/18 05:40; Admin Dose 350 MG; Start 09/05/18 at 18:30 Acetaminophen/ Hydrocodone Bitart ([place] (5/325)) 1 tab Q4H PRN PO MODERATE PAIN LEVEL 4-6 Last administered on 09/06/18 01:06; Admin Dose 1 TAB; Start 09/05/18 at 21:00 Aspirin (Halfprin) 81 mg DAILY PO ; Start 09/06/18 at 09:00 COURTNEY LEO September 06, 2018 09:51
[2018-09-06] MEDS ORDERED: METHYLPREDNISOLONE 40 MG INJ IV ONE (10:00)
[2018-09-06] MEDS: FLUCONAZOLE 100 MG TAB PO SCH (10:18)
[2018-09-06] MEDS: ASPIRIN (EC) 81 MG TAB PO SCH (10:19)
[2018-09-06] MEDS: BENAZEPRIL 40 MG TAB PO SCH (10:19)
[2018-09-06] MEDS: LORAZEPAM 2 MG INJ IV PRN ×2 (10:33→19:48)
--- NOTE | 2018-09-06 11:37 | CONS ---
Assessment/Plan Assessment/Plan Assessment/Plan (Daily) Assessment and recommendations; 1. patient admitted with cough and chest congestion with chest x-ray findings indicative of atypical pneumonia, currently on appropriate antimicrobial regimen. 2. Chronic pain. 3. COPD. 4. History of C-spine surgery. 5. Hoarseness, likely due to laryngitis. Continue current supportive care. Obtain follow-up chest x-ray in 48 hours. ENT consult for evaluation of hoarseness. Consultation Date/Type/Reason Admit Date/Time September 05, 2018 at 14:05 Date of Consultation: September 06, 2018 Type of Consult Pulmonary Patient is a 58-year-old lady who was admitted yesterday with a few weeks histor y of chest congestion and coughing and shortness of breath. Upon evaluation a chest x-ray was done which is showing bilateral interstitial changes which are suggestive of atypical pneumonia. Patient also been complaining of hoarseness for the last couple of months. She denies any high fever, chills, coughing, sputum production or any hemoptysis. Past medical history; 1. History of COPD. 2. History of left below-knee amputation. 3. History of cervical spine surgery. Medications; reviewed. Allergies; as outlined above. Social history; quit smoking 4 months ago, has a [id number] smoking history. Family history; she is single lives by herself. Occupational history; patient is on disability. Review of systems; denies any headache, visual changes, sinus symptoms, postnasal drip. Shortness of breath has improved. Complains of hoarseness. Denies any dysphasia. Denies any abdominal pain, nausea vomiting. Any weight loss. Any melena or hematochezia. Any orthopnea. Any skin changes or any new arthritis symptoms. General exam; elderly woman, awake alert, laying comfortably in bed. Currently no distress. Date/Time of Note DATE: 09/06/18 TIME: 11:33 Past Medical History Home Meds Active Scripts Albuterol Sulfate* (Proair HFA*) 8.5 Gm Hfa.aer.ad, 2 PUFF INH Q4, #1 INHALER Prov:SANYA MILLER DO 09/02/18 Prednisone* (Prednisone*) 20 Mg Tab, 60 MG PO DAILY for 5 Days, TAB Prov:SANYA MILLER DO 09/02/18 Reported Medications Temazepam* (Temazepam*) 30 Mg Capsule, 30 MG PO HS PRN for INSOMNIA, CAP 05/18/18 Carisoprodol* (Carisoprodol*) 350 Mg Tablet, 350 MG PO BID PRN for MUSCLE SPASMS, TAB 05/18/18 Fluticasone Propionate* (Flovent* HFA 110) 12 Gm Inha, 1 PUFF INHALATION BID, #1 INHALER 05/18/18 Benazepril Hcl* (Benazepril Hcl*) 40 Mg Tablet, 40 MG PO DAILY, #30 TAB 05/18/18 Ibuprofen* (Ibuprofen*) 600 Mg Tablet, 600 MG PO BID, TAB 05/18/18 Discontinued Reported Medications Albuterol Sulfate* (Proair HFA*) 8.5 Gm Hfa.aer.ad, 2 PUFF INH Q4H PRN for WHEEZING AND SOB, #1 INHALER 05/18/18 Discontinued Scripts Clindamycin Hcl* (Clindamycin Hcl*) 300 Mg Capsule, 300 MG PO TID for 7 Days, CAP Prov:CAROL PATEL MD 07/27/18 Epinephrine (Epipen 2-[place]) 0.3 Mg/0.3 Ml Pen.injctr, 1 EA INJ ONCE PRN for ALL ERGIC REACTION, #1 EA Prov:ASHLEE VIVEROS MD 05/26/18 Medications Current Medications Methylprednisolone Sodium Succinate (Solu-Medrol) 40 mg Q6 IV Last administered on 09/06/18at 05:41; Admin Dose 40 MG; Start 09/06/18 at 00:00 Albuterol/ Ipratropium (Duoneb) 3 ml Q6H RESP THERAPY HHN Last administered on 09/06/18at 02:09; Admin Dose 3 ML; Start 09/05/18 at 20:00 Ceftriaxone Sodium 50 ml @ 100 mls/hr Q24H IVPB Last administered on 09/05/18at 20:48; Admin Dose 100 MLS/HR; Start 09/05/18 at 18:30 Acetaminophen (Tylenol Tab) 500 mg Q4H PRN PO MILD PAIN(1-3)OR ELEVATED TEMP; Start 09/05/18 at 18:30 Fluconazole (Diflucan) 100 mg DAILY PO Last administered on 09/06/18at 10:18; Admin Dose 100 MG; Start 09/05/18 at 18:30 Enoxaparin Sodium (Lovenox) 40 mg DAILY SC Last administered on 09/05/18 21:28; Admin Dose 40 MG; Start 09/05/18 at 18:30 Potassium Chloride/Sodium Chloride 1,000 ml @ 70 mls/hr [id number] IV Last administered on 09/05/18at 20:48; Admin Dose 70 MLS/HR; Start 09/05/18 at 18:30 Albuterol (Ventolin Hfa) 2 puff Q4H RESP THERAPY INH Last administered on 09/06/18 08:02; Admin Dose 2 PUFF; Start 09/05/18 at 21:00 Benazepril HCl (Lotensin) 40 mg DAILY PO Last administered on 09/06/18 10:19; Admin Dose 40 MG; Start 09/06/18 at 09:00 Carisoprodol (Soma) 350 mg BID PRN PO MUSCLE SPASMS Last administered on 09/06/18 05:40; Admin Dose 350 MG; Start 09/05/18 at 18:30 Acetaminophen/ Hydrocodone Bitart ([place] (5/325)) 1 tab Q4H PRN PO MODERATE PA IN LEVEL 4-6 Last administered on 09/06/18 01:06; Admin Dose 1 TAB; Start 09/05/18 at 21:00 Aspirin (Halfprin) 81 mg DAILY PO Last administered on 09/06/18 10:19; Admin Dose 81 MG; Start 09/06/18 at 09:00 Lorazepam (Ativan) 0.5 mg Q6H PRN IV anxiety Last administered on 09/06/18 10:33; Admin Dose 0.5 MG; Start 09/06/18 at 10:00 Allergies: Coded Allergies: sulfamethoxazole (Unverified Allergy, Intermediate, HIVES, 09/05/18) trimethoprim (Unverified Allergy, Intermediate, HIVES, 09/05/18) amoxicillin (Unverified Allergy, Unknown, 09/05/18) clavulanic acid (Unverified Allergy, Unknown, 09/05/18) ketorolac (Unverified Allergy, Unknown, 09/05/18) phenytoin (Unverified Allergy, Unknown, HIVES, 09/05/18) Past Surgical History Past Surgical Hx: other Social History Smoking Status: Current every day smoker Exam/Review of Systems Exam Vitals Vital Signs Date Temp Pulse Resp B/P (MAP) Pulse Ox O2 O2 Flow FiO2 Time Delivery Rate 09/06/18 92 08:00 09/06/18 98.0 20 136/64 97 Room Air 07:33 (88) 09/06/18 3.0 05:00 09/06/18 27 02:10 Intake and Output 09/05/18 09/05/18 09/06/18 1515:00 23:00 07:00 IntakeIntake Total 750 ml BalanceBalance 750 ml Exam HEENT exam; supple neck, no JVD. No lymphadenopathy. Midline trachea. No thyromegaly. Patient is edentulous. Pharynx is clear. No stridor. Chest exam; diminished but clear breath sounds. S1-S2 audible, no murmurs. Regular rhythm. Abdomen exam; soft, nontender. No organomegaly. Bowel sounds audible. Extremity exam; no peripheral edema. There is a well-healed left below-knee irritation. BUFFER NICKEL exam; no focal deficit. Results Result Diagram: 09/05/18 1127 09/05/18 1127 Results 24hrs Laboratory Tests Test 09/05/18 12:52 09/05/18 15:40 POC Venous Lactate 1.4 Urine Color YELLOW Urine Clarity SLIGHTLY CLOUDY A Urine pH 5.0 Urine Specific [place] 1.020 Urine Ketones NEGATIVE Urine Nitrite NEGATIVE Urine Bilirubin NEGATIVE Urine Urobilinogen NEGATIVE Urine Leukocyte Esterase NEGATIVE Urine Microscopic RBC 1 Urine Microscopic WBC 1 Urine Hemoglobin NEGATIVE Urine Glucose NEGATIVE Urine Total Protein NEGATIVE Medications Medication Current Medications Methylprednisolone Sodium Succinate (Solu-Medrol) 40 mg Q6 IV Last administered on 09/06/18at 05:41; Admin Dose 40 MG; Start 09/06/18 at 00:00 Albuterol/ Ipratropium (Duoneb) 3 ml Q6H RESP THERAPY HHN Last administered on 09/06/18at 02:09; Admin Dose 3 ML; Start 09/05/18 at 20:00 Ceftriaxone Sodium 50 ml @ 100 mls/hr Q24H IVPB Last administered on 09/05/18at 20:48; Admin Dose 100 MLS/HR; Start 09/05/18 at 18:30 Acetaminophen (Tylenol Tab) 500 mg Q4H PRN PO MILD PAIN(1-3)OR ELEVATED TEMP; Start 09/05/18 at 18:30 Fluconazole (Diflucan) 100 mg DAILY PO Last administered on 09/06/18 10:18; Admin Dose 100 MG; Start 09/05/18 at 18:30 Enoxaparin Sodium (Lovenox) 40 mg DAILY SC Last administered on 09/05/18 21:28; Admin Dose 40 MG; Start 09/05/18 at 18:30 Potassium Chloride/Sodium Chloride 1,000 ml @ 70 mls/hr [id number] IV Last administered on 09/05/18 20:48; Admin Dose 70 MLS/HR; Start 09/05/18 at 18:30 Albuterol (Ventolin Hfa) 2 puff Q4H RESP THERAPY INH Last administered on 09/06/18 08:02; Admin Dose 2 PUFF; Start 09/05/18 at 21:00 Benazepril HCl (Lotensin) 40 mg DAILY PO Last administered on 09/06/18 10:19; Admin Dose 40 MG; Start 09/06/18 at 09:00 Carisoprodol (Soma) 350 mg BID PRN PO MUSCLE SPASMS Last administered on 05:40; Admin Dose 350 MG; Start 09/05/18 at 18:30 Acetaminophen/ Hydrocodone Bitart ([place] (5/325)) 1 tab Q4H PRN PO MODERATE PAIN LEVEL 4-6 Last administered on 09/06/18 01:06; Admin Dose 1 TAB; Start 09/05/18 at 21:00 Aspirin (Halfprin) 81 mg DAILY PO Last administered on 09/06/18 10:19; Admin Dose 81 MG; Start 09/06/18 at 09:00 Lorazepam (Ativan) 0.5 mg Q6H PRN IV anxiety Last administered on 09/06/18 10:33; Admin Dose 0.5 MG; Start 09/06/18 at 10:00 FACUNDO DOWLING September 06, 2018 11:37
[2018-09-06] MEDS: CEFTRIAXONE 1 GM/50 ML (PMX) 50 ML IVPB SCH (18:14)
[2018-09-06] MEDS ORDERED: VANCOMYCIN IV PER PHARMACY XX SCH (19:00)
[2018-09-06] MEDS ORDERED: VANCOMYCIN HCL 1.25 GM in SOD CHLORIDE 0.9% 250 ML IVPB ONE (20:30)
[2018-09-07] VITALS (11 sets, daily range): BP systolic 127–146; BP diastolic 73–83; PULSE 93–111; RESP 18–23
[2018-09-07] MEDS: METHYLPREDNISOLONE 40 MG INJ IV SCH ×6 (00:17→18:10)
[2018-09-07] MEDS: ALBUTEROL HFA 8 GM INHALER INH SCH ×3 (02:22→20:18)
[2018-09-07] MEDS: ALBUTEROL/IPRATROPIUM (NEB) 3 ML AMP HHN SCH ×4 (02:28→14:38)
[2018-09-07] MEDS: LORAZEPAM 2 MG INJ IV PRN ×3 (05:13→17:00)
[2018-09-07] MEDS: HYDROCODONE/APAP (5/325) TAB PO PRN ×2 (05:54→09:29)
[2018-09-07] MEDS: ASPIRIN (EC) 81 MG TAB PO SCH (08:25)
[2018-09-07] MEDS: FLUCONAZOLE 100 MG TAB PO SCH (08:25)
[2018-09-07] MEDS: BENAZEPRIL 40 MG TAB PO SCH (08:26)
[2018-09-07] MEDS ORDERED: VANCOMYCIN 750 MG (PMX) 250 ML IVPB SCH (08:30)
[2018-09-07] MEDS: ENOXAPARIN 40 MG/0.4 ML SYG SC SCH (08:35)
--- NOTE | 2018-09-07 11:35 | PN ---
Date/Time of Note Date/Time of Note DATE: 09/07/18 TIME: 11:34 Assessment/Plan VTE Prophylaxis Risk score (from Ns)>0 risk: 5 SCD applied (from [facility]): No SCD contraindicated: other Pharmacological prophylaxis: LMWH Lines/Catheters IV [facility] (from [facility] Peripheral IV Urinary Cath still in place: No Assessment/Plan Hospital Course - Acute respiratory failure due to COPD exacerbation. - on supplemental oxygen, breathing treatment, IV steroid, IV antibiotic. - Headache. - CT head is negative. - refused ABG to see if she has a retained CO2 - refusing further placement of BiPAP. - pulmonary consult- NTIFIED - Chronic neck pain. No acute issue. - Left BKA. - Hypertension. Continue benazepril. - Oral thrush. on Diflucan. - Current smoker - advised to quit smoking - offered nicotine patch; however, she refused. - For DVT prophylaxis, we will give Lovenox due to small vessel disease and history of continued smoking, we will start her on baby aspirin also. Result Diagram: 09/07/18 0516 09/07/18 0516 Results 24hrs Laboratory Tests Test 09/06/18 14:15 09/07/18 05:16 White Blood Count 13.2 H 16.5 #H Red Blood Count 3.52 L 3.46 L Hemoglobin 10.2 L 10.0 L Hematocrit 32.3 L 31.3 L Mean Corpuscular Volume 91.8 90.5 Mean Corpuscular Hemoglobin 29.0 28.9 L Mean Corpuscular Hemoglobin Concent 31.6 L 31.9 L Red Cell Distribution Width 16.1 H 16.1 H Platelet Count 396 # 384 Mean Platelet Volume 9.0 9.0 Immature Granulocytes % 6.100 H 5.800 H Neutrophils % 78.1 H Segmented Neutrophils % (Manual) 81 H 83 H Band Neutrophils % (Manual) 1 Lymphocytes % 12.8 L Lymphocytes % (Manual) 14 L 11 L Monocytes % 2.3 Monocytes % (Manual) 4 4 Eosinophils % 0.0 Basophils % 0.7 Nucleated Red Blood Cells % 0.0 1 H Immature Granulocytes # 0.800 H 0.960 H Neutrophils # 10.3 H Neutrophils # (Manual) 10.7 H Band Neutrophils # 0.1 Lymphocytes (Manual) 1.8 1.8 Lymphocytes # 1.7 Monocytes # 0.3 Monocytes # (Manual) 0.5 0.6 Eosinophils # 0.0 Basophils # 0.1 Nucleated Red Blood Cells # 0.0 Platelet Estimate NORMAL NORMAL Polychromasia 3+ Anisocytosis 1+ 1+ Microcytosis 1+ Sodium Level 143 141 Potassium Level 5.0 4.6 Chloride Level 113 H 109 Carbon Dioxide Level 24 24 Anion Gap 6 8 Blood Urea Nitrogen 30 H 27 H Creatinine 0.70 0.65 Est Glomerular Filtrat Rate mL/min > 60 > 60 Glucose Level 135 123 Calcium Level 9.4 9.4 Total Bilirubin 0.1 L Direct Bilirubin 0.00 Indirect Bilirubin 0.1 Aspartate Amino Transf (AST/SGOT) 21 Alanine Aminotransferase (ALT/SGPT) 25 Alkaline Phosphatase 85 Total Protein 6.9 Albumin 3.3 Globulin 3.60 H Albumin/Globulin Ratio 0.91 Metamyelocytes % (manual) 1 H Myelocytes % (Manual) 1 H Metamyelocytes # 0.1 H Myelocytes # 0.1 H Hypochromasia 2+ Subjective 24 Hr Interval Summary Free Text/Dictation Patient wants to go home. Exam/Review of Systems Exam Vitals Vital Signs Date Temp Pulse Resp B/P (MAP) Pulse Ox O2 O2 Flow FiO2 Time Delivery Rate 09/07/18 98.0 102 18 132/79 92 Nasal 11:33 (96) Cannula 09/07/18 4.0 09:11 09/06/18 35 22:43 Intake and Output 09/06/18 09/06/18 09/07/18 1414:59 22:59 06:59 IntakeIntake Total 200 ml 800 ml OutputOutput Total 300 ml 400 ml BalanceBalance -300 ml -200 ml 800 ml Constitutional: well developed Head: normocephalic, atraumatic Neck: supple Respiratory: diminished breath sounds Cardiovascular: regular rate and rhythm Gastrointestinal: soft, non-tender Extremities: normal pulses Results Results 24hrs Laboratory Tests Test 09/06/18 14:15 09/07/18 05:16 White Blood Count 13.2 H 16.5 #H Red Blood Count 3.52 L 3.46 L Hemoglobin 10.2 L 10.0 L Hematocrit 32.3 L 31.3 L Mean Corpuscular Volume 91.8 90.5 Mean Corpuscular Hemoglobin 29.0 28.9 L Mean Corpuscular Hemoglobin Concent 31.6 L 31.9 L Red Cell Distribution Width 16.1 H 16.1 H Platelet Count 396 # 384 Mean Platelet Volume 9.0 9.0 Immature Granulocytes % 6.100 H 5.800 H Neutrophils % 78.1 H Segmented Neutrophils % (Manual) 81 H 83 H Band Neutrophils % (Manual) 1 Lymphocytes % 12.8 L Lymphocytes % (Manual) 14 L 11 L Monocytes % 2.3 Monocytes % (Manual) 4 4 Eosinophils % 0.0 Basophils % 0.7 Nucleated Red Blood Cells % 0.0 1 H Immature Granulocytes # 0.800 H 0.960 H Neutrophils # 10.3 H Neutrophils # (Manual) 10.7 H Band Neutrophils # 0.1 Lymphocytes (Manual) 1.8 1.8 Lymphocytes # 1.7 Monocytes # 0.3 Monocytes # (Manual) 0.5 0.6 Eosinophils # 0.0 Basophils # 0.1 Nucleated Red Blood Cells # 0.0 Platelet Estimate NORMAL NORMAL Polychromasia 3+ Anisocytosis 1+ 1+ Microcytosis 1+ Sodium Level 143 141 Potassium Level 5.0 4.6 Chloride Level 113 H 109 Carbon Dioxide Level 24 24 Anion Gap 6 8 Blood Urea Nitrogen 30 H 27 H Creatinine 0.70 0.65 Est Glomerular Filtrat Rate mL/min > 60 > 60 Glucose Level 135 123 Calcium Level 9.4 9.4 Total Bilirubin 0.1 L Direct Bilirubin 0.00 Indirect Bilirubin 0.1 Aspartate Amino Transf (AST/SGOT) 21 Alanine Aminotransferase (ALT/SGPT) 25 Alkaline Phosphatase 85 Total Protein 6.9 Albumin 3.3 Globulin 3.60 H Albumin/Globulin Ratio 0.91 Metamyelocytes % (manual) 1 H Myelocytes % (Manual) 1 H Metamyelocytes # 0.1 H Myelocytes # 0.1 H Hypochromasia 2+ Medications Medication Current Medications Methylprednisolone Sodium Succinate (Solu-Medrol) 40 mg Q6 IV Last administered on 09/07/18at 05:13; Admin Dose 40 MG; Start 09/06/18 at 00:00 Albuterol/ Ipratropium (Duoneb) 3 ml Q6H RESP THERAPY HHN Last administered on 09/07/18at 09:11; Admin Dose 3 ML; Start 09/05/18 at 20:00 Ceftriaxone Sodium 50 ml @ 100 mls/hr Q24H IVPB Last administered on 09/06/18at 18:14; Admin Dose 100 MLS/HR; Start 09/05/18 at 18:30 Acetaminophen (Tylenol Tab) 500 mg Q4H PRN PO MILD PAIN(1-3)OR ELEVATED TEMP; Start 09/05/18 at 18:30 Fluconazole (Diflucan) 100 mg DAILY PO Last administered on 09/07/18 08:25; A dmin Dose 100 MG; Start 09/05/18 at 18:30 Enoxaparin Sodium (Lovenox) 40 mg DAILY SC Last administered on 09/07/18 08:35; Admin Dose 40 MG; Start 09/05/18 at 18:30 Albuterol (Ventolin Hfa) 2 puff Q4H RESP THERAPY INH Last administered on 09/07/18 05:13; Admin Dose 2 PUFF; Start 09/05/18 at 21:00 Benazepril HCl (Lotensin) 40 mg DAILY PO Last administered on 09/07/18 08:26; Admin Dose 40 MG; Start 09/06/18 at 09:00 Carisoprodol (Soma) 350 mg BID PRN PO MUSCLE SPASMS Last administered on 09/06/18 05:40; Admin Dose 350 MG; Start 09/05/18 at 18:30 Acetaminophen/ Hydrocodone Bitart ([place] (5/325)) 1 tab Q4H PRN PO MODERATE PAIN LEVEL 4-6 Last administered on 09/07/18 09:29; Admin Dose 1 TAB; Start 09/05/18 at 21:00 Aspirin (Halfprin) 81 mg DAILY PO Last administered on 09/07/18 08:25; Admin Dose 81 MG; Start 09/06/18 at 09:00 Lorazepam (Ativan) 0.5 mg Q6H PRN IV anxiety Last administered on 09/07/18 11:10; Admin Dose 0.5 MG; Start 09/06/18 at 10:00 Vancomycin HCl (Vanco Iv Per Pharmacy) VANCOMYCIN PER PHARMACY PER PROTOCOL XX ; Start 09/06/18 at 19:00 Vancomycin/Sodium Chloride 250 ml @ 125 mls/hr Q12H IVPB Last administered on 09/07/18 08:27; Admin Dose 125 MLS/HR; Start 09/07/18 at 08:30 Miscellaneous Information (*Rx Drug Level Order Reminder*) VANCO TROUGH 09/08 @ 0,730 0730 ONCE XX ; Start 09/08/18 at 07:30; Stop 09/08/18 at 07:31 THOM PAEZ September 07, 2018 11:35
--- NOTE | 2018-09-07 14:13 | CONS ---
Consult Date/Type/Reason Admit Date/Time September 05, 2018 at 14:05 Initial Consult Date 09/06/18 Type of Consultation: Pulm Date/Time of Note DATE: 09/07/18 TIME: 14:10 Subjective Hoarse voice persists. Wants to go home. Objective Vitals Vital Signs Date Temp Pulse Resp B/P (MAP) Pulse Ox O2 O2 Flow FiO2 Time Delivery Rate 09/07/18 111 12:01 09/07/18 98.0 18 132/79 92 Nasal 11:33 (96) Cannula 09/07/18 4.0 09:11 09/06/18 35 22:43 Intake and Output 09/06/18 09/06/18 09/07/18 1515:00 23:00 07:00 IntakeIntake Total 200 ml 800 ml OutputOutput Total 300 ml 400 ml BalanceBalance -300 ml -200 ml 800 ml Exam HEENT: Neck supple; no JVD; no LAD CVS: RRR, S1 and S2 CHEST: Reduced breath sounds ABD: Soft, NT, + BS EXT: No c/c/e Results/Medications Result Diagram: 09/07/18 0516 09/07/18 0516 Results 24 hrs Laboratory Tests Test 09/06/18 14:15 09/07/18 05:16 White Blood Count 13.2 H 16.5 #H Red Blood Count 3.52 L 3.46 L Hemoglobin 10.2 L 10.0 L Hematocrit 32.3 L 31.3 L Mean Corpuscular Volume 91.8 90.5 Mean Corpuscular Hemoglobin 29.0 28.9 L Mean Corpuscular Hemoglobin Concent 31.6 L 31.9 L Red Cell Distribution Width 16.1 H 16.1 H Platelet Count 396 # 384 Mean Platelet Volume 9.0 9.0 Immature Granulocytes % 6.100 H 5.800 H Neutrophils % 78.1 H Segmented Neutrophils % (Manual) 81 H 83 H Band Neutrophils % (Manual) 1 Lymphocytes % 12.8 L Lymphocytes % (Manual) 14 L 11 L Monocytes % 2.3 Monocytes % (Manual) 4 4 Eosinophils % 0.0 Basophils % 0.7 Nucleated Red Blood Cells % 0.0 1 H Immature Granulocytes # 0.800 H 0.960 H Neutrophils # 10.3 H Neutrophils # (Manual) 10.7 H Band Neutrophils # 0.1 Lymphocytes (Manual) 1.8 1.8 Lymphocytes # 1.7 Monocytes # 0.3 Monocytes # (Manual) 0.5 0.6 Eosinophils # 0.0 Basophils # 0.1 Nucleated Red Blood Cells # 0.0 Platelet Estimate NORMAL NORMAL Polychromasia 3+ Anisocytosis 1+ 1+ Microcytosis 1+ Sodium Level 143 141 Potassium Level 5.0 4.6 Chloride Level 113 H 109 Carbon Dioxide Level 24 24 Anion Gap 6 8 Blood Urea Nitrogen 30 H 27 H Creatinine 0.70 0.65 Est Glomerular Filtrat Rate mL/min > 60 > 60 Glucose Level 135 123 Calcium Level 9.4 9.4 Total Bilirubin 0.1 L Direct Bilirubin 0.00 Indirect Bilirubin 0.1 Aspartate Amino Transf (AST/SGOT) 21 Alanine Aminotransferase (ALT/SGPT) 25 Alkaline Phosphatase 85 Total Protein 6.9 Albumin 3.3 Globulin 3.60 H Albumin/Globulin Ratio 0.91 Metamyelocytes % (manual) 1 H Myelocytes % (Manual) 1 H Metamyelocytes # 0.1 H Myelocytes # 0.1 H Hypochromasia 2+ Home Meds Active Scripts Albuterol Sulfate* (Proair HFA*) 8.5 Gm Hfa.aer.ad, 2 PUFF INH Q4, #1 INHALER Prov:SANYA MILLER DO 09/02/18 Prednisone* (Prednisone*) 20 Mg Tab, 60 MG PO DAILY for 5 Days, TAB Prov:SANYA MILLER DO 09/02/18 Reported Medications Temazepam* (Temazepam*) 30 Mg Capsule, 30 MG PO HS PRN for INSOMNIA, CAP 05/18/18 Carisoprodol* (Carisoprodol*) 350 Mg Tablet, 350 MG PO BID PRN for MUSCLE SPASMS, TAB 05/18/18 Fluticasone Propionate* (Flovent* HFA 110) 12 Gm Inha, 1 PUFF INHALATION BID, #1 INHALER 05/18/18 Benazepril Hcl* (Benazepril Hcl*) 40 Mg Tablet, 40 MG PO DAILY, #30 TAB 05/18/18 Ibuprofen* (Ibuprofen*) 600 Mg Tablet, 600 MG PO BID, TAB 05/18/18 Discontinued Reported Medications Albuterol Sulfate* (Proair HFA*) 8.5 Gm Hfa.aer.ad, 2 PUFF INH Q4H PRN for WHEEZING AND SOB, #1 INHALER 05/18/18 Discontinued Scripts Clindamycin Hcl* (Clindamycin Hcl*) 300 Mg Capsule, 300 MG PO TID for 7 Days, CAP Prov:CAROL PATEL MD 07/27/18 Epinephrine (Epipen 2-Yassine) 0.3 Mg/0.3 Ml Pen.injctr, 1 EA INJ ONCE PRN for ALLERGIC REACTION, #1 EA Prov:ASHLEE VIVEROS MD 05/26/18 Medications Current Medications Methylprednisolone Sodium Succinate (Solu-Medrol) 40 mg Q6 IV Last administered on 09/07/18 05:13; Admin Dose 40 MG; Start 09/06/18 at 00:00 Albuterol/ Ipratropium (Duoneb) 3 ml Q6H RESP THERAPY HHN Last administered on 09/07/18 09:11; Admin Dose 3 ML; Start 09/05/18 at 20:00 Ceftriaxone Sodium 50 ml @ 100 mls/hr Q24H IVPB Last administered on 09/06/18 18:14; Admin Dose 100 MLS/HR; Start 09/05/18 at 18:30 Acetaminophen (Tylenol Tab) 500 mg Q4H PRN PO MILD PAIN(1-3)OR ELEVATED TEMP; Start 09/05/18 at 18:30 Fluconazole (Diflucan) 100 mg DAILY PO Last administered on 09/07/18 08:25; Admin Dose 100 MG; Start 09/05/18 at 18:30 Enoxaparin Sodium (Lovenox) 40 mg DAILY SC Last administered on 09/07/18 08:35; Admin Dose 40 MG; Start 09/05/18 at 18:30 Albuterol (Ventolin Hfa) 2 puff Q4H RESP THERAPY INH Last administered on 09/07/18 05:13; Admin Dose 2 PUFF; Start 09/05/18 at 21:00 Benazepril HCl (Lotensin) 40 mg DAILY PO Last administered on 09/07/18 08:26; Admin Dose 40 MG; Start 09/06/18 at 09:00 Carisoprodol (Soma) 350 mg BID PRN PO MUSCLE SPASMS Last administered on 09/06/18 05:40; Admin Dose 350 MG; Start 09/05/18 at 18:30 Acetaminophen/ Hydrocodone Bitart ([place] (5/325)) 1 tab Q4H PRN PO MODERATE PAIN LEVEL 4-6 Last administered on 09/07/18at 09:29; Admin Dose 1 TAB; Start 09/05/18 at 21:00 Aspirin (Halfprin) 81 mg DAILY PO Last administered on 09/07/18at 08:25; Admin Dose 81 MG; Start 09/06/18 at 09:00 Lorazepam (Ativan) 0.5 mg Q6H PRN IV anxiety Last administered on 09/07/18at 11:10; Admin Dose 0.5 MG; Start 09/06/18 at 10:00 Vancomycin HCl (Vanco Iv Per Pharmacy) VANCOMYCIN PER PHARMACY PER PROTOCOL XX ; Start 09/06/18 at 19:00 Vancomycin/Sodium Chloride 250 ml @ 125 mls/hr Q12H IVPB Last administered on 09/07/18at 08:27; Admin Dose 125 MLS/HR; Start 09/07/18 at 08:30 Miscellaneous Information (*Rx Drug Level Order Reminder*) VANCO TROUGH 09/08 @ 0,730 0730 ONCE XX ; Start 09/08/18 at 07:30; Stop 09/08/18 at 07:31 Assessment/Plan Assessment/Plan (Daily) IMP: 1 COPD exacerbation 2. Micronodular opacities on CXR 3. Hoarseness 4. BKA RECS: 1. BDs 2. CS 3. CT chest/neck 4. O2 to SpO2 88-92% SERENA CAMPOS MD September 07, 2018 14:13
[2018-09-07] MEDS ORDERED: IOHEXOL 300MG/ML 150 ML BTL ONE (17:22)
[2018-09-07] MEDS ORDERED: SOD CHLORIDE 0.9% 100 ML ONE (17:22)
[2018-09-07] MEDS: CEFTRIAXONE 1 GM/50 ML (PMX) 50 ML IVPB SCH (18:10)
--- NOTE | 2018-09-08 13:49 | DS ---
Date/Time of Note Date/Time of Note DATE: 09/08/18 TIME: 13:48 Discharge Summary Admission/Discharge Info Admit Date/Time September 05, 2018 at 14:05 Discharge Date/Time September 07, 2018 at 20:51 Discharge Diagnosis - Acute respiratory failure due to COPD exacerbation. - on supplemental oxygen, breathing treatment, IV steroid, IV antibiotic. - Headache. - CT head is negative. - refused ABG to see if she has a retained CO2 - refusing further placement of BiPAP. - pulmonary consult- NTIFIED - Chronic neck pain. No acute issue. - Left BKA. - Hypertension. Continue benazepril. - Oral thrush. on Diflucan. - Current smoker - advised to quit smoking - offered nicotine patch; however, she refused. Patient Condition: Serious Consults Pulmonary Procedures none Hx of Present Illness Patient with COPD comes in with exacerbation. Hospital Course Patient with COPD comes in with exacerbation. Patient improved with treatment but she was adament about leaving the hospital despite that fact that she still required high levels of oxygen support. Therefore, patient opted to leave AMA. - Acute respiratory failure due to COPD exacerbation. - on supplemental oxygen, breathing treatment, IV steroid, IV antibiotic. - Headache. - CT head is negative. - refused ABG to see if she has a retained CO2 - refusing further placement of BiPAP. - pulmonary consult- NTIFIED - Chronic neck pain. No acute issue. - Left BKA. - Hypertension. Continue benazepril. - Oral thrush. on Diflucan. - Current smoker - advised to quit smoking - offered nicotine patch; however, she refused. - For DVT prophylaxis, we will give Lovenox due to small vessel disease and history of continued smoking, we will start her on baby aspirin also. Home Meds Active Scripts Albuterol Sulfate* (Proair HFA*) 8.5 Gm Hfa.aer.ad, 2 PUFF INH Q4, #1 INHALER Prov:SANYA MILLER DO 09/02/18 Prednisone* (Prednisone*) 20 Mg Tab, 60 MG PO DAILY for 5 Days, TAB Prov:SANYA MILLER DO 09/02/18 Reported Medications Temazepam* (Temazepam*) 30 Mg Capsule, 30 MG PO HS PRN for INSOMNIA, CAP 05/18/18 Carisoprodol* (Carisoprodol*) 350 Mg Tablet, 350 MG PO BID PRN for MUSCLE SPASMS, TAB 05/18/18 Fluticasone Propionate* (Flovent* HFA 110) 12 Gm Inha, 1 PUFF INHALATION BID, #1 INHALER 05/18/18 Benazepril Hcl* (Benazepril Hcl*) 40 Mg Tablet, 40 MG PO DAILY, #30 TAB 05/18/18 Ibuprofen* (Ibuprofen*) 600 Mg Tablet, 600 MG PO BID, TAB 05/18/18 Discontinued Reported Medications Albuterol Sulfate* (Proair HFA*) 8.5 Gm Hfa.aer.ad, 2 PUFF INH Q4H PRN for WHEEZING AND SOB, #1 INHALER 05/18/18 Discontinued Scripts Clindamycin Hcl* (Clindamycin Hcl*) 300 Mg Capsule, 300 MG PO TID for 7 Days, CAP Prov:CAROL PATEL MD 07/27/18 Epinephrine (Epipen 2-Yassine) 0.3 Mg/0.3 Ml Pen.injctr, 1 EA INJ ONCE PRN for ALLERGIC REACTION, #1 EA Prov:ASHLEE VIVEROS MD 05/26/18 Primary Care Provider THOM Cerrato September 08, 2018 13:49
== END 2018-09-07 20:51 | disposition left against medical advice (07) | DRG 189 ==
LOC: E/R 11:10 → 6WM 14:05
PROVIDERS: ADMIT Internal Medicine; ATTEND Internal Medicine
DX: J96.00 Acute respiratory failure, unspecified whether with hypoxia or hypercapnia (principal); J44.1 Chronic obstructive pulmonary disease with (acute) exacerbation; B37.0 Candidal stomatitis; R51 Headache; G89.29 Other chronic pain; M54.2 Cervicalgia; Z89.512 Acquired absence of left leg below knee; I10 Essential (primary) hypertension; F17.200 Nicotine dependence, unspecified, uncomplicated
CPT/HCPCS: 70450; 70492; 71045; 71250; 80048; 80053; 81001; 81003; 83605; 84484; 85025; 87086; 93005; 94640; 94644; 94660; 94664; 96374; 96375; J0456; J0696; J1200; J1650; J2060; J2270; J2405; J2920; J2930; J3370; J3480; J7030; J7050; Q9967

== ENCOUNTER 2018-10-07 00:20 | Emergency (ER) | payer OTHER ==
[~2018-10-07] VITALS: Ht 167.6 cm; Wt 59.0 kg
[2018-10-07 00:26] VITALS: Ht 167.6 cm; Wt 59.0 kg
--- NOTE | 2018-10-07 02:10 | ERD ---
ER Documentation Chief Complaint Chief Complaint carlyle cheek from [facility] for fall, occipital impact, -n/v HPI This is a 4-year-old female brought in by rescue from [facility] for follow-up. Jay deng states she took too many somas for chronic pain and she tripped and fell and hit her head. She denies loss conscious. She denies any focal neurological complaints. ROS All systems reviewed and are negative except as per history of present illness. Medications Home Meds Active Scripts Albuterol Sulfate* (Proair HFA*) 8.5 Gm Hfa.aer.ad, 2 PUFF INH Q4, #1 INHALER Prov:BENKKOSREBECASTOLOS A. DO 09/02/18 Prednisone* (Prednisone*) 20 Mg Tab, 60 MG PO DAILY for 5 Days, TAB Prov:SANYA MILLER A. DO 09/02/18 Reported Medications Temazepam* (Temazepam*) 30 Mg Capsule, 30 MG PO HS PRN for INSOMNIA, CAP 05/18/18 Carisoprodol* (Carisoprodol*) 350 Mg Tablet, 350 MG PO BID PRN for MUSCLE SPASMS, TAB 05/18/18 Fluticasone Propionate* (Flovent* HFA 110) 12 Gm Inha, 1 PUFF INHALATION BID, #1 INHALER 05/18/18 Benazepril Hcl* (Benazepril Hcl*) 40 Mg Tablet, 40 MG PO DAILY, #30 TAB 05/18/18 Ibuprofen* (Ibuprofen*) 600 Mg Tablet, 600 MG PO BID, TAB 05/18/18 Allergies Allergies: Coded Allergies: sulfamethoxazole (Unverified Allergy, Intermediate, HIVES, 09/05/18) trimethoprim (Unverified Allergy, Intermediate, HIVES, 09/05/18) amoxicillin (Unverified Allergy, Unknown, 09/05/18) clavulanic acid (Unverified Allergy, Unknown, 09/05/18) ketorolac (Unverified Allergy, Unknown, 09/05/18) phenytoin (Unverified Allergy, Unknown, HIVES, 09/05/18) PMhx/Soc History of Surgery: Yes (neck sx 2004, R leg amputation 2004) Anesthesia Reaction: No Hx Neurological Disorder: Yes (CVA ) Hx Respiratory Disorders: Yes (COPD) Hx Cardiac Disorders: Yes (HTN, CAD, ) Hx Psychiatric Problems: No Hx Miscellaneous Medical Probl: No Hx Alcohol Use: No Hx Substance Use: No Hx Tobacco Use: Yes Smoking Status: Current every day smoker Physical Exam Vitals Vital Signs Date Temp Pulse Resp B/P (MAP) Pulse Ox O2 O2 Flow FiO2 Time Delivery Rate 10/07/18 98.7 88 19 126/65 100 00:26 (85) Physical Exam Const: No acute distress Head: Atraumatic Eyes: Normal Conjunctiva ENT: Normal External Ears, Nose and Mouth. Neck: Full range of motion. No meningismus. Resp: Clear to auscultation bilaterally Cardio: Regular rate and rhythm, no murmurs Abd: Soft, non tender, non distended. Normal bowel sounds Skin: No petechiae or rashes Back: No midline or flank tenderness Ext: No cyanosis, or edema Neur: Awake and alert Psych: Normal Mood and Affect Procedures/MDM Medical decision makin-year-old female with a closed head injury. At this point no evidence of intracranial hemorrhage. Nonfocal neurological. Stable for outpatient management. Departure Diagnosis: Primary Impression: Closed head injury Encounter type: initial encounter Qualified Codes: S09.90XA - Unspecified injury of head, initial encounter Condition: Stable WHITNEY FLYNN Oct 07, 2018 02:10
[2018-10-07 05:15] VITALS: BP 107/72; PULSE 72; RESP 18
== END 2018-10-07 05:15 | disposition home or self-care (01) ==
LOC: E/R 00:20
DX: S09.90XA Unspecified injury of head, initial encounter (principal); I10 Essential (primary) hypertension; J44.9 Chronic obstructive pulmonary disease, unspecified; I25.10 Atherosclerotic heart disease of native coronary artery without angina pectoris; F17.210 Nicotine dependence, cigarettes, uncomplicated; R51 Headache; W01.10XA Fall on same level from slipping, tripping and stumbling with subsequent striking against unspecified object, initial encounter; Y92.9 Unspecified place or not applicable; Z86.73 Personal history of transient ischemic attack (TIA), and cerebral infarction without residual deficits
CPT/HCPCS: 70450; Z7502

== ENCOUNTER 2018-10-29 11:29 | Emergency (ER) | payer OTHER ==
[~2018-10-29] VITALS: Wt 58.0 kg
--- NOTE | 2018-10-29 12:29 | ERD ---
ER Documentation Chief Complaint Chief Complaint non provoked chest tightness since yesterday. no releif with nitro, mild sob HPI The patient is a 58-year-old female, resenting to the ER because of chest tightness, sore throat, chronic cough for 1 day, had similar symptoms previously but denies fever, chills, neck pain, chest pain with vomiting/radiation/exertion/diaphoresis, complains of minimal dyspnea, denies abdominal pain nausea, vomiting, dysuria, diarrhea. She smokes, denies drinking, use 3 L nasal cannula continuously at home The EMS thought that she might have chest pain and administer 3 nitroglycerin spray without any relief Past medical history: Anxiety, depression, hypertension, history of CVA, COPD, chronic pain syndrome Surgical history: Neck, right below-knee amputation ROS All systems reviewed and are negative except as per history of present illness. Medications Home Meds Active Scripts Tiotropium [place]* (Spiriva*) 18 Mcg Cap.w.dev, 1 CAP INHALATION DAILY, #30 CAP Prov:ANTOINETTE PATEL MD 10/29/18 Albuterol Sulfate* (Proair HFA*) 8.5 Gm Hfa.aer.ad, 2 PUFF INH Q4, #1 INHALER Prov:ANTOINETTE PATEL MD 10/29/18 Salmeterol Xinaf-Fluticasone* (Advair HFA*) 115/21 Aerosol Inhaler, 2 INH IH BID, #1 INHALER Prov:ANTOINETTE PATEL MD 10/29/18 Prednisone* (Prednisone*) 20 Mg Tab, 60 MG PO DAILY for 5 Days, TAB Prov:ANTOINETTE PATEL MD 10/29/18 Azithromycin* (Zithromax*) 250 Mg Tablet, 250 MG PO .JOCELYN DIRECTED, #6 TAB TAKE 500 MG (2 TABS) THE FIRST DAY THEN 250 MG (1 TAB) DAYS 2-5 Prov:ANTOINETTE PATEL MD 10/29/18 Albuterol Sulfate* (Proair HFA*) 8.5 Gm Hfa.aer.ad, 2 PUFF INH Q4, #1 INHALER Prov:SANYA MILLER DO 09/02/18 Reported Medications Temazepam* (Temazepam*) 30 Mg Capsule, 30 MG PO HS PRN for INSOMNIA, CAP 05/18/18 Carisoprodol* (Carisoprodol*) 350 Mg Tablet, 350 MG PO BID PRN for MUSCLE SPASMS, TAB 05/18/18 Fluticasone Propionate* (Flovent* HFA 110) 12 Gm Inha, 1 PUFF INHALATION BID, #1 INHALER 05/18/18 Benazepril Hcl* (Benazepril Hcl*) 40 Mg Tablet, 40 MG PO DAILY, #30 TAB 05/18/18 Ibuprofen* (Ibuprofen*) 600 Mg Tablet, 600 MG PO BID, TAB 05/18/18 Discontinued Scripts Prednisone* (Prednisone*) 20 Mg Tab, 60 MG PO DAILY for 5 Days, TAB Prov:SANYA MILLER. DO 09/02/18 Allergies Allergies: Coded Allergies: sulfamethoxazole (Unverified Allergy, Intermediate, HIVES, 10/29/18) trimethoprim (Unverified Allergy, Intermediate, HIVES, 10/29/18) amoxicillin (Unverified Allergy, Unknown, 10/29/18) clavulanic acid (Unverified Allergy, Unknown, 10/29/18) ketorolac (Unverified Allergy, Unknown, 10/29/18) phenytoin (Unverified Allergy, Unknown, HIVES, 10/29/18) PMhx/Soc History of Surgery: Yes (neck sx 2004, R leg amputation 2004) Anesthesia Reaction: No Hx Neurological Disorder: Yes (CVA ) Hx Respiratory Disorders: Yes (COPD) Hx Cardiac Disorders: Yes (HTN, CAD, ) Hx Psychiatric Problems: No Hx Miscellaneous Medical Probl: No Hx Alcohol Use: No Hx Substance Use: No Hx Tobacco Use: Yes Smoking Status: Current every day smoker Physical Exam Vitals Vital Signs Date Temp Pulse Resp B/P (MAP) Pulse Ox O2 O2 Flow FiO2 Time Delivery Rate 10/29/18 98.3 89 18 112/69 96 Room Air 14:25 (83) 10/29/18 77 18 96 Nasal 2.0 13:17 Cannula 10/29/18 Nasal 2 13:03 Cannula 10/29/18 98.3 87 18 95/61 (72) 95 11:41 Physical Exam Const: No acute distress. Head: Atraumatic. Eyes: Normal Conjunctiva. ENT: Normal External Ears, Nose and Mouth. Neck: Full range of motion. No meningismus. Resp: Mild bilateral expiratory wheezes Cardio: Regular rate and rhythm. Abd: Soft, non distended, normal bowel sounds, non tender. Skin: No petechiae or rashes. Back: No midline or flank tenderness. Ext: No cyanosis, or edema. Neur: Awake and alert. No focal deficit Psych: Normal Mood and Affect. Result Diagram: 10/29/18 1252 10/29/18 1252 Results 24 hrs Laboratory Tests Test 10/29/18 12:52 White Blood Count 6.7 10^3/ul Red Blood Count 4.27 10^6/ul Hemoglobin 12.2 g/dl Hematocrit 39.5 % Mean Corpuscular Volume 92.5 fl Mean Corpuscular Hemoglobin 28.6 pg Mean Corpuscular Hemoglobin Concent 30.9 g/dl Red Cell Distribution Width 15.6 % Platelet Count 266 10^3/UL Mean Platelet Volume 9.7 fl Immature Granulocytes % 0.300 % Neutrophils % 50.6 % Lymphocytes % 38.1 % Monocytes % 5.6 % Eosinophils % 4.8 % Basophils % 0.6 % Nucleated Red Blood Cells % 0.0 /100WBC Immature Granulocytes # 0.020 10^3/ul Neutrophils # 3.4 10^3/ul Lymphocytes # 2.5 10^3/ul Monocytes # 0.4 10^3/ul Eosinophils # 0.3 10^3/ul Basophils # 0.0 10^3/ul Nucleated Red Blood Cells # 0.0 10^3/ul D-Dimer 542.82 ng/ml D-Dimer Comment Sodium Level 140 mmol/L Potassium Level 5.0 mmol/L Chloride Level 106 mmol/L Carbon Dioxide Level 26 mmol/L Anion Gap 8 Blood Urea Nitrogen 19 mg/dl Creatinine 0.81 mg/dl Est Glomerular Filtrat Rate mL/min > 60 mL/min Glucose Level 87 mg/dl Calcium Level 9.1 mg/dl Troponin I < 0.012 ng/ml Current Medications Medications Dose Sig/Migel Start Time Status Last (Trade) Ordered Route PRN Stop Time Admin Dose Reason Admin Ipratropium 0.5 mg ONCE STAT 10/29/18 DC 10/29/18 [facility] INH 12:47 13:09 (Atrovent 10/29/18 12:49 0.02% (Neb)) 1.25 mg ONCE ONCE 10/29/18 DC 10/29/18 Levalbuterol HHN 13:00 13:09 (Xopenex 10/29/18 13:01 Neb) Sodium 1,000 ml @ Q1H ONCE 10/29/18 DC 10/29/18 Chloride 1,000 mls/hr IV 13:00 12:58 10/29/18 13:59 1 tab ONCE ONCE 10/29/18 DC 10/29/18 Acetaminophen PO 14:30 14:36 / 10/29/18 14:31 Hydrocodone Bitart ([place] (5/)) Procedures/[place] [address] Radiology Main Line: [phone] DIAGNOSTIC IMAGING REPORT Patient: JESSICA MIDDLETON : 1960 Age: 58 Sex: F MR #: [id number] DOS: 10/29/18 1247 Ordering MD: ANTOINETTE PATEL MD Location: E/R Room/Bed: PROCEDURE: CHEST X-RAY CLINICAL INDICATION: Shortness of breath TECHNIQUE: One-view COMPARISON: 06/13/2016 FINDINGS: Heart size is within normal limits with prominence of the interstitium. No focal infiltrates or pneumothorax noted. Hardware noted over the lower cervical spine. IMPRESSION: Mild interstitial edema, new finding. RPTAT: AAOO Physician Peggy Date Time Electronically viewed and signed by Physician Peggy on 10/29/2018 13:34 MB/ CC: ANTOINETTE PATEL MD [phone] EKG: Read by emergency physician Rate/Rhythm: Normal Sinus Rhythm 82 beats/min QRS, ST, T-waves: No ST elevation, specific T abnormality, prolonged QT Impression: Abnormal EKG MEDICAL MAKING DECISION: The patient is a 58-year-old female, presenting with acute COPD exacerbation, acute dehydration. She was treated with Xopenex 1.25 mg and Atrovent 0.5 mg for wheezing and 1 L NS for acute dehydration with good response. She is stable for outpatient follow-up She requested morphine for her chronic pain but she was treated with [place] 5 mg p.o. The differential diagnoses considered include but are not limited to asthma, COPD, pneumonia, pulmonary embolus, pleural effusion, congestive heart failure. Departure Diagnosis: Primary Impression: COPD with acute exacerbation Additional Impression: Dehydration Condition: Good Comments She was discharged with Zithromax, prednisone, Spiriva, albuterol I discussed the findings with the patient. I advised the patient to follow-up with the primary physician in about 1-2 days, sooner if needed and return if any concern. Disclaimer: Inadvertent spelling and grammatical errors are likely due to EHR/dictation software use and do not reflect on the overall quality of patient care. Also, please note that the electronic time recorded on this note does not necessarily reflect the actual time of the patient encounter. ANTOINETTE PATEL MD Oct 29, 2018 12:29
[2018-10-29] MEDS ORDERED: IPRATROPIUM (NEB) 0.5 MG/2.5 ML AMP INH STA (12:47)
[2018-10-29] MEDS ORDERED: LEVALBUTEROL (NEB) 1.25 MG/0.5 ML AMP HHN ONE (13:00)
[2018-10-29] MEDS ORDERED: SOD CHLORIDE 0.9% 1,000 ML IV ONE (13:00)
[2018-10-29 14:25] VITALS: BP 112/69; PULSE 89; RESP 18
[2018-10-29] MEDS ORDERED: PRED20TA PO (14:25)
[2018-10-29] MEDS ORDERED: AZIT250T PO (14:25)
[2018-10-29] MEDS ORDERED: FLUT12HF2 IH (14:26)
[2018-10-29] MEDS ORDERED: ALBU8.5H8 INH (14:26)
[2018-10-29] MEDS ORDERED: TIOT18CA INHALATION (14:29)
[2018-10-29] MEDS ORDERED: HYDROCODONE/APAP (5/325) TAB PO ONE (14:30)
== END 2018-10-29 16:08 | disposition home or self-care (01) ==
LOC: E/R 11:29
DX: J44.1 Chronic obstructive pulmonary disease with (acute) exacerbation (principal); I25.10 Atherosclerotic heart disease of native coronary artery without angina pectoris; I10 Essential (primary) hypertension; F17.210 Nicotine dependence, cigarettes, uncomplicated; E86.0 Dehydration; R40.2142 Coma scale, eyes open, spontaneous, at arrival to emergency department; R40.2362 Coma scale, best motor response, obeys commands, at arrival to emergency department; R40.2252 Coma scale, best verbal response, oriented, at arrival to emergency department; Z86.73 Personal history of transient ischemic attack (TIA), and cerebral infarction without residual deficits
CPT/HCPCS: 71045; 80048; 84484; 85025; 85378; 93005; 94664; J7030; Z7610; 36415

== ENCOUNTER 2018-11-27 19:37 | Emergency (ER) | payer OTHER ==
[~2018-11-27] VITALS: Ht 157.5 cm; Wt 68.2 kg
[~2018-11-27 19:37] MED LIST changes: +AZIT250T PO; +FLUT12HF2 IH; +TIOT18CA INHALATION
[2018-11-27 19:42] VITALS: Ht 157.5 cm; Wt 68.2 kg
[2018-11-27] MEDS ORDERED: SOD CHLORIDE 0.9% 500 ML IV STA (20:00)
[2018-11-27] MEDS ORDERED: DIPHENHYDRAMINE 50 MG INJ IV ONE ×2 (20:00→23:30)
[2018-11-27] MEDS ORDERED: ONDANSETRON 4 MG INJ IV ONE (20:00)
[2018-11-27] MEDS ORDERED: morphine 4 MG/ML VIAL IV ONE (20:00)
[2018-11-27] MEDS ORDERED: morphine 4 MG/ML VIAL IV STA (21:52)
[2018-11-27] MEDS ORDERED: ONDANSETRON 4 MG INJ IV STA (21:52)
--- NOTE | 2018-11-27 22:37 | ERD ---
ER Documentation Chief Complaint Chief Complaint JENNIFER from home,fell from bed,c/o lower back pain & bilat hands pain HPI This is a 58-year-old female with a left below the knee amputation who lives at home alone and ambulates with a wheelchair. She indicated that just prior to arrival she had a mechanical fall out of her wheelchair. She landed on the back of her head. She is complaining of headache and neck pain. She had a previous fracture of her cervical spine many years ago. She states the pain is a dull achy sensation in her neck. She denies any numbness or tingling of her upper extremities. She stated she landed on her wrist. She feels mild pain around the wrist but is able to move both of her hands. She stated she had a brief transient loss of consciousness for roughly 30 seconds. Not on anticoagulants ROS All systems reviewed and are negative except as per history of present illness. Medications Home Meds Active Scripts Tiotropium [place]* (Spiriva*) 18 Mcg Cap.w.dev, 1 CAP INHALATION DAILY, #30 CAP Prov:ANTOINETTE PATEL MD 10/29/18 Albuterol Sulfate* (Proair HFA*) 8.5 Gm Hfa.aer.ad, 2 PUFF INH Q4, #1 INHALER Prov:ANTOINETTE PATEL MD 10/29/18 Salmeterol Xinaf-Fluticasone* (Advair HFA*) 115/ Aerosol Inhaler, 2 INH IH BID, #1 INHALER Prov:ANTOINETTE PATEL MD 10/29/18 Prednisone* (Prednisone*) 20 Mg Tab, 60 MG PO DAILY for 5 Days, TAB Prov:ANTOINETTE PATEL MD 10/29/18 Azithromycin* (Zithromax*) 250 Mg Tablet, 250 MG PO .JOCELYN DIRECTED, #6 TAB TAKE 500 MG (2 TABS) THE FIRST DAY THEN 250 MG (1 TAB) DAYS 2-5 Prov:ANTOINETTE PATEL MD 10/29/18 Albuterol Sulfate* (Proair HFA*) 8.5 Gm Hfa.aer.ad, 2 PUFF INH Q4, #1 INHALER Prov:SANYA MILLER DO 09/02/18 Reported Medications Temazepam* (Temazepam*) 30 Mg Capsule, 30 MG PO HS PRN for INSOMNIA, CAP 05/18/18 Carisoprodol* (Carisoprodol*) 350 Mg Tablet, 350 MG PO BID PRN for MUSCLE SPASMS, TAB 05/18/18 Fluticasone Propionate* (Flovent* HFA 110) 12 Gm Inha, 1 PUFF INHALATION BID, #1 INHALER 05/18/18 Benazepril Hcl* (Benazepril Hcl*) 40 Mg Tablet, 40 MG PO DAILY, #30 TAB 05/18/18 Ibuprofen* (Ibuprofen*) 600 Mg Tablet, 600 MG PO BID, TAB 05/18/18 Allergies Allergies: Coded Allergies: sulfamethoxazole (Unverified Allergy, Intermediate, HIVES, 10/29/18) trimethoprim (Unverified Allergy, Intermediate, HIVES, 10/29/18) amoxicillin (Unverified Allergy, Unknown, 10/29/18) clavulanic acid (Unverified Allergy, Unknown, 10/29/18) ketorolac (Unverified Allergy, Unknown, 10/29/18) phenytoin (Unverified Allergy, Unknown, HIVES, 10/29/18) PMhx/Soc History of Surgery: Yes (neck sx 2004, R leg amputation 2004) Anesthesia Reaction: No Hx Neurological Disorder: Yes (CVA ) Hx Respiratory Disorders: Yes (COPD) Hx Cardiac Disorders: Yes (HTN, CAD, ) Hx Psychiatric Problems: No Hx Miscellaneous Medical Probl: No Hx Alcohol Use: No Hx Substance Use: No Hx Tobacco Use: Yes Physical Exam Vitals Vital Signs Date Temp Pulse Resp B/P (MAP) Pulse Ox O2 O2 Flow FiO2 Time Delivery Rate 11/27/18 98.1 77 15 133/94 95 Room Air 22:27 (107) 11/27/18 98.3 77 18 141/79 96 Nasal 4.0 21:42 (99) Cannula 11/27/18 98.3 96 18 132/80 94 19:42 (97) Physical Exam Constitutional:Well-developed. Well-nourished. HEENT:Normocephalic. Right posterior scalp hematoma with no laceration. Pena ing abrasion.Pupils were equal round reactive to light. Moist mucous membranes.No tonsillar exudates. Neck: No nuchal rigidity. No lymphadenopathy. Posterior cervical spine tenderness over C3-C4 with no step-offs Respiratory: Not using accessory muscles of respiration.Lungs were clear to auscultation bilaterally. No rhonchi. No rales. No wheezing. Cardiovascular: Regular rate regular rhythm.No murmurs. No rubs were appreciated.S1, S2 normal. Distal pulses palpable in the right lower extremity. GI: Abdomen was soft. Nontender. Non Distended. No pulsatile abdominal masses or bruits. No rebound. No guarding. Bowel sounds were present and normal. Muscle skeletal: Left below the knee amputation. Patient able to lift the right upper extremity against gravity. No tenderness to her laxity with anterior posterior lateral compression of the hip. Mild tenderness over the bilateral paralumbar region with no tenderness with palpation or percussion over the thoracic or lumbar spinous processes Skin: No petechia, no purpura. No lesions on the palms or the soles of the feet. No maculopapular rash. NEURO: Patient was alert, awake, orientated x3.No facial droop. Gait not observed as patient is unable to ambulate. Results 24 hrs Current Medications Medications Dose Sig/Migel Start Time Status Last (Trade) Ordered Route PRN Stop Time Admin Dose Reason Admin Sodium 500 ml @ Q1H STAT 11/27/18 DC 11/27/18 Chloride 500 mls/hr IV 20:00 20:56 11/27/18 20:59 Morphine 4 mg ONCE ONCE 11/27/18 DC 11/27/18 Sulfate IV 20:00 20:55 (morphine) 11/27/18 20:03 Ondansetron 4 mg ONCE ONCE 11/27/18 DC 11/27/18 HCl (Zofran IV 20:00 20:54 Inj) 11/27/18 20:03 50 mg ONCE ONCE 11/27/18 DC 11/27/18 Diphenhydrami IV 20:00 20:54 ne HCl 11/27/18 20:03 (Benadryl) Morphine 4 mg ONCE STAT 11/27/18 DC 11/27/18 Sulfate IV 21:52 22:29 (morphine) 11/27/18 21:53 Ondansetron 4 mg ONCE STAT 11/27/18 DC 11/27/18 HCl (Zofran IV 21:52 22:33 Inj) 11/27/18 21:53 Procedures/MDM This is a 58-year-old female that presented to the emergency department with a mechanical fall. The patient had a closed head injury and CT scan of the brain showed no intracerebral hemorrhage mass-effect or midline shift but there was a right parietal hematoma. The patient had a previous cervical spine fracture. Utilizing the Nexus criteria radiographic imaging was obtained of the cervical spine. This was reviewed by the radiologist and indicate the followin. No acute post traumatic abnormality. No acute fracture or subluxation. 2. Redemonstrated extensive postoperative changes including anterior and posterior fusions and laminectomies from the C4 through C7. Unchanged lucency surrounding the a C1 and C2 posterior radius consistent with loosening. 3. Unchanged multilevel degenerative changes. 4. Emphysematous changes at the lung apices. 1 view lumbar radiograph on reviewed by myself showed no evidence of compression fracture. The patient received intravenous morphine and Zofran for analgesia control. Her pain had improved. I felt this is muscle skeletal in injury. She will have ambulance transfer arranged back to her living facility given that she cannot ambulate. The patient was discharged home in fair condition. They were instructed to return to the emergency department at any time if there was any worsening of their condition. The patient stated they would follow up with their PCP in the next 24-48 hours to initiate a suitable medication regimen under the care of their PCP as well as to allow their PCP to monitor any drug reactions. The patient was discharged home with prescriptions after they gave informed consent to the new medication. They were also fully informed by myself on the adverse effects and adverse drug interactions in order to provide adequate safeguards to prevent possible adverse reactions to medications. Departure Diagnosis: Primary Impression: Closed head injury Encounter type: initial encounter Qualified Codes: S09.90XA - Unspecified injury of head, initial encounter Additional Impressions: Sprain of cervical neck Encounter type: initial encounter Qualified Codes: S13.9XXA - Sprain of joints and ligaments of unspecified parts of neck, initial encounter Lumbar sprain Encounter type: initial encounter Qualified Codes: S33.5XXA - Sprain of ligaments of lumbar spine, initial encounter Condition: Fair ROLY EVERETT MD Nov 27, 2018 22:37
[2018-11-28 00:22] VITALS: BP 119/102; PULSE 78; RESP 20
== END 2018-11-28 00:53 | disposition home or self-care (01) ==
LOC: E/R 19:37
DX: S33.5XXA Sprain of ligaments of lumbar spine, initial encounter (principal); S13.9XXA Sprain of joints and ligaments of unspecified parts of neck, initial encounter; S00.03XA Contusion of scalp, initial encounter; I10 Essential (primary) hypertension; I25.10 Atherosclerotic heart disease of native coronary artery without angina pectoris; J44.9 Chronic obstructive pulmonary disease, unspecified; R51 Headache; R40.2142 Coma scale, eyes open, spontaneous, at arrival to emergency department; R40.2252 Coma scale, best verbal response, oriented, at arrival to emergency department; R40.2362 Coma scale, best motor response, obeys commands, at arrival to emergency department; W06.XXXA Fall from bed, initial encounter; Y92.9 Unspecified place or not applicable; Z87.891 Personal history of nicotine dependence; Z86.73 Personal history of transient ischemic attack (TIA), and cerebral infarction without residual deficits
CPT/HCPCS: 70450; 72020; 72125; J1200; J2270; J2405; J7040; 96374; 96375; 96376

== ENCOUNTER 2018-12-11 13:55 | Emergency (ER) | payer OTHER ==
[~2018-12-11] VITALS: Ht 152.4 cm; Wt 58.0 kg
[~2018-12-11 13:55] MED LIST changes: +ALBU90AE INHALATION; +LORA-444 PO
[2018-12-11 13:56] VITALS: BP 110/70; PULSE 72; RESP 18; Ht 152.4 cm; Wt 58.0 kg
--- NOTE | 2018-12-11 14:07 | ERD ---
ER Documentation Chief Complaint Chief Complaint fell from bed x 4, has back pain, awaiting at the door in her whhelchair HPI 58-year-old female presents to the emergency department by paramedics complaining of back pain. Patient is well-known to the emergency department for multiple visits for similar type complaints. Patient states she had a non-syncopal fall at her care facility/home yesterday and since then has been having low back pain. She denies any numbness, tingling, bowel or bladder incontinence and states that her pain is exactly the same as what is been in the past. I have reviewed the oceanology teacher pre-hospital care. Pre-hospital vital signs were reviewed. Pre-hospital diagnostic tests were reviewed. According to the paramedics, after the fall, the patient was able to move in her own wheelchair, which is the way that she normally gets around and was able to meet them out in front of her care facility. Upon arrival, patient is refusing further care. She is sticking up her middle finger at me denying any other significant concerns other than what appears to be her chronic back pain. ROS All systems reviewed and are negative except as per history of present illness. Medications Home Meds Reported Medications Albuterol Sulfate (Proair Respiclick) 90 Mcg Aer.pow.ba, 2 PUFFS INHALATION Q6 PRN for SHORTNESS OF BREATH, #1 BOTTLE 12/11/18 Temazepam* (Temazepam*) 30 Mg Capsule, 30 MG PO HS PRN for INSOMNIA, CAP 05/18/18 Carisoprodol* (Carisoprodol*) 350 Mg Tablet, 350 MG PO BID PRN for MUSCLE SPASMS, TAB 05/18/18 Fluticasone Propionate* (Flovent* HFA 110) 12 Gm Inha, 1 PUFF INHALATION BID, #1 INHALER 05/18/18 Benazepril Hcl* (Benazepril Hcl*) 40 Mg Tablet, 40 MG PO DAILY, #30 TAB 05/18/18 Ibuprofen* (Ibuprofen*) 600 Mg Tablet, 600 MG PO BID, TAB 05/18/18 Discontinued Scripts Tiotropium [place]* (Spiriva*) 18 Mcg Cap.w.dev, 1 CAP INHALATION DAILY, #30 CAP Prov:ANTOINETTE PATEL MD 10/29/18 Albuterol Sulfate* (Proair HFA*) 8.5 Gm Hfa.aer.ad, 2 PUFF INH Q4, #1 INHALER Prov:ANTOINETTE PATEL MD 10/29/18 Salmeterol Xinaf-Fluticasone* (Advair HFA*) 115/21 Aerosol Inhaler, 2 INH IH BID, #1 INHALER Prov:ANTOINETTE PATEL MD 10/29/18 Prednisone* (Prednisone*) 20 Mg Tab, 60 MG PO DAILY for 5 Days, TAB Prov:ANTOINETTE PATEL MD 10/29/18 Azithromycin* (Zithromax*) 250 Mg Tablet, 250 MG PO .MARLONCK DIRECTED, #6 TAB TAKE 500 MG (2 TABS) THE FIRST DAY THEN 250 MG (1 TAB) DAYS 2-5 Prov:ANTOINETTE PATEL MD 10/29/18 Albuterol Sulfate* (Proair HFA*) 8.5 Gm Hfa.aer.ad, 2 PUFF INH Q4, #1 INHALER Prov:SANYA MILLER DO 09/02/18 Allergies Allergies: Coded Allergies: ondansetron (Verified Allergy, Intermediate, Hives, Itching, 11/27/18) sulfamethoxazole (Unverified Allergy, Intermediate, HIVES, 10/29/18) trimethoprim (Unverified Allergy, Intermediate, HIVES, 10/29/18) amoxicillin (Unverified Allergy, Unknown, 10/29/18) clavulanic acid (Unverified Allergy, Unknown, 10/29/18) ketorolac (Unverified Allergy, Unknown, 10/29/18) phenytoin (Unverified Allergy, Unknown, HIVES, 10/29/18) PMhx/Soc History of Surgery: Yes (Cervical Sx, Left Lower Leg Amputated) Anesthesia Reaction: No Hx Neurological Disorder: No (CVA x 2) Hx Respiratory Disorders: No Hx Cardiac Disorders: Yes (HTN) Hx Psychiatric Problems: No Hx Miscellaneous Medical Probl: No Hx Alcohol Use: No Hx Substance Use: Yes Hx Tobacco Use: No Physical Exam Vitals Vital Signs Date Temp Pulse Resp B/P (MAP) Pulse Ox O2 O2 Flow FiO2 Time Delivery Rate 12/11/18 97.5 72 18 110/70 99 13:56 (83) Physical Exam General: Well developed, well nourished in no acute distress HEENT: Scalp atraumatic with no laceration or evidence of skull fracture; no signs of basilar skull fracture. Face symmetric, stable and atraumatic Neck: Full range of motion without discomfort or neurologic symptoms, no midline cervical spine tenderness, step-off, or evidence of significant trauma CV: Regular rate, rhythm, no murmurs appreciated Lungs: Clear to auscultation bilaterally with no chest wall trauma appreciated, chest wall stable with no crepitus Abdomen: Soft, atraumatic and non-tender in all 4 quadrants Extremities: Atraumatic with no bony tenderness or deformity in all extremities, she is status post amputation of the left lower extremity below the knee. Full range of motion throughout all joints; pelvis stable to both AP and lateral compression Back: No thoracic or lumbar midline tenderness, no step-off or evidence of significant trauma Neurologic: Awake, alert and oriented, pupils equal, round and reactive to light, face symmetric, tongue midline, moving all extremities with equal and normal strength, sensory exam grossly non-focal Procedures/MDM Patient was taken to a room, seen and examined Medical decision makin-year-old female with a chronic pain disorder presents the emergency department after a fall. Examination demonstrates no significant acute injury specifically her back, she shows no indications of acute trauma with no tenderness to palpation or step-off and no neurologic symptoms. Pepper is in her normal state of health and seems to be appropriate for discharge at this time. Departure Diagnosis: Primary Impression: Fall with no significant injury Condition: Stable Patient Instructions: Fall Prevention Referrals: CHARLA BROWN (PCP) Additional Instructions: Please take your usual medications. Return for any problems or concerns JUSTIN JUAN Dec 11, 2018 14:07
== END 2018-12-11 14:20 | disposition home or self-care (01) ==
LOC: E/R 13:55
DX: M54.5 Low back pain (principal); I10 Essential (primary) hypertension; Z86.73 Personal history of transient ischemic attack (TIA), and cerebral infarction without residual deficits
CPT/HCPCS: 99283

== ENCOUNTER 2018-12-17 18:16 | Emergency (ER) | payer OTHER ==
[~2018-12-17] VITALS: Ht 167.6 cm; Wt 63.6 kg
[~2018-12-17 18:16] MED LIST changes: -ALBU8.5H8 INH; -AZIT250T PO; -FLUT12HF2 IH; -PRED20TA PO; -TIOT18CA INHALATION
[2018-12-17 18:24] VITALS: Ht 167.6 cm; Wt 63.6 kg
[2018-12-17 18:27] VITALS: BP 106/62; PULSE 88; RESP 18
--- NOTE | 2018-12-17 18:29 | ERD ---
ER Documentation Chief Complaint Chief Complaint Chest pain HPI 58-year-old female who is well-known to this provider in this emergency department presents with chest pain. She describes 3 days of chest pain that is left-sided rating to her arm. Patient is asking for narcotic pain medication. She denies any shortness of breath diaphoresis or nausea. She denies exertional components. No associated fevers or chills or pleuritic discomfort. ROS All systems reviewed and are negative except as per history of present illness. Medications Home Meds Reported Medications Lorazepam* (Ativan*) 2 Mg Tablet, 2 MG PO BID PRN for ANXIETY, #30 TAB 12/11/18 Albuterol Sulfate (Proair Respiclick) 90 Mcg Aer.pow.ba, 2 PUFFS INHALATION Q6 PRN for SHORTNESS OF BREATH, #1 BOTTLE 12/11/18 Temazepam* (Temazepam*) 30 Mg Capsule, 30 MG PO HS PRN for INSOMNIA, CAP 05/18/18 Carisoprodol* (Carisoprodol*) 350 Mg Tablet, 350 MG PO BID PRN for MUSCLE SPASMS, TAB 05/18/18 Fluticasone Propionate* (Flovent* HFA 110) 12 Gm Inha, 1 PUFF INHALATION BID, #1 INHALER 05/18/18 Benazepril Hcl* (Benazepril Hcl*) 40 Mg Tablet, 40 MG PO DAILY, #30 TAB 05/18/18 Ibuprofen* (Ibuprofen*) 600 Mg Tablet, 600 MG PO BID, TAB 05/18/18 Discontinued Scripts Tiotropium [place]* (Spiriva*) 18 Mcg Cap.w.dev, 1 CAP INHALATION DAILY, #30 CAP Prov:ANTOINETTE PATEL MD 10/29/18 Albuterol Sulfate* (Proair HFA*) 8.5 Gm Hfa.aer.ad, 2 PUFF INH Q4, #1 INHALER Prov:ANTOINETTE PATEL MD 10/29/18 Salmeterol Xinaf-Fluticasone* (Advair HFA*) 115/21 Aerosol Inhaler, 2 INH IH BID, #1 INHALER Prov:ANTOINETTE PATEL MD 10/29/18 Prednisone* (Prednisone*) 20 Mg Tab, 60 MG PO DAILY for 5 Days, TAB Prov:ANTOIENTTE PATEL MD 10/29/18 Azithromycin* (Zithromax*) 250 Mg Tablet, 250 MG PO .ZPACK DIRECTED, #6 TAB TAKE 500 MG (2 TABS) THE FIRST DAY THEN 250 MG (1 TAB) DAYS 2-5 Prov:ANTOINETTE PATEL MD 10/29/18 Albuterol Sulfate* (Proair HFA*) 8.5 Gm Hfa.aer.ad, 2 PUFF INH Q4, #1 INHALER Prov:SANYA MILLER DO 09/02/18 Allergies Allergies: Coded Allergies: ondansetron (Verified Allergy, Intermediate, Hives, Itching, 12/11/18) sulfamethoxazole (Unverified Allergy, Intermediate, HIVES, 12/11/18) trimethoprim (Unverified Allergy, Intermediate, HIVES, 12/11/18) amoxicillin (Unverified Allergy, Unknown, 12/11/18) clavulanic acid (Unverified Allergy, Unknown, 12/11/18) ketorolac (Unverified Allergy, Unknown, 12/11/18) phenytoin (Unverified Allergy, Unknown, HIVES, 12/11/18) PMhx/Soc History of Surgery: Yes (Cervical Sx, Left Lower Leg Amputated) Anesthesia Reaction: No Hx Neurological Disorder: No (CVA x 2) Hx Respiratory Disorders: No Hx Cardiac Disorders: Yes (HTN) Hx Psychiatric Problems: No Hx Miscellaneous Medical Probl: No Hx Alcohol Use: No Hx Substance Use: Yes Hx Tobacco Use: No FmHx Family History: No diabetes Physical Exam Vitals Vital Signs Date Temp Pulse Resp B/P (MAP) Pulse Ox O2 O2 Flow FiO2 Time Delivery Rate 12/17/18 98.2 92 16 94/69 (77) 100 18:24 Physical Exam General: Well developed, well nourished, no acute distress Head: Normocephalic, atraumatic. Eyes: EOM intact ENT: Moist mucous membranes Neck: Full ROM Respiratory: No respiratory distress Cardiovascular: Well perfused distally Abdominal: Nondistended : Deferred MSK: No edema, no unilateral swelling, 5/5 strength Neurologic: Alert and oriented, moving all extremities, normal speech, steady gait Skin: No rash Psych: Normal mood Procedures/MDM This patient presents to the emergency room complaining of chest pain. The patient does have a noted history of malingering, frequency of visits to the emergency room and chronic pain syndrome as well as drug-seeking behavior. However, the patient is reporting chest pain and warrants a cardiac evaluation and work-up. During my assessment and evaluation I expanded the patient that we would treat her chest pain and evaluate for potential serious causes, but I would not be providing her with IV or IM narcotic pain medications given the chronicity of her symptoms and history of narcotic dependance and chronic pain. I offered oral narcotic pain medication but the patient refused. She became very upset and would like to sign out AMA. She was informed of the risks of leaving without treatment of her chest pain and assessment of her chest pain including acute myocardial infarction, cardiac arrest and . She verbalized understanding but states that she does not want to be touched treated and would like to be rapidly discharged. The patient seems to have capacity. She is refusing to sign documentation. Her presentation at this point seems to be very consistent with her chronic pain and drug-seeking behavior in the past. Again, she is refusing cardiac screening and treatment in the emergency room setting. The patient is demanding for a taxi to be called and she will pay. Departure Diagnosis: Primary Impression: Chronic pain Chronic pain type: other chronic pain Qualified Codes: G89.29 - Other chronic pain Additional Impressions: Chest pain Chest pain type: unspecified Qualified Codes: R07.9 - Chest pain, unspecified Malingering Drug-seeking behavior Condition: Stable Patient Instructions: Chest Pain, Uncertain Cause Additional Instructions: Call your primary care doctor TOMORROW for an appointment during the next 1 WEEK.Tell the school secretary that you were referred from this facility.See the doctor sooner or return here if your condition worsens before your appointment time. MARCEL FISHER MD Dec 17, 2018 18:28
== END 2018-12-17 19:03 | disposition left against medical advice (07) ==
LOC: E/R 18:16
DX: I10 Essential (primary) hypertension (principal); R40.2142 Coma scale, eyes open, spontaneous, at arrival to emergency department; R40.2362 Coma scale, best motor response, obeys commands, at arrival to emergency department; R40.2252 Coma scale, best verbal response, oriented, at arrival to emergency department; Z72.89 Other problems related to lifestyle; Z76.5 Malingerer [conscious simulation]; Z86.73 Personal history of transient ischemic attack (TIA), and cerebral infarction without residual deficits
CPT/HCPCS: 99282

== ENCOUNTER 2019-03-06 11:12 | Emergency (ER) | payer OTHER ==
[~2019-03-06] VITALS: Ht 157.5 cm; Wt 66.0 kg
[~2019-03-06 11:12] MED LIST changes: +AZIT250T PO
[2019-03-06 11:31] VITALS: Ht 157.5 cm; Wt 66.0 kg
[2019-03-06] MEDS ORDERED: morphine 4 MG/ML VIAL IV STA (14:32)
[2019-03-06 15:00] VITALS: BP 103/78; PULSE 85; RESP 16
== END 2019-03-06 15:59 | disposition home or self-care (01) ==
LOC: E/R 11:12
DX: M25.551 Pain in right hip (principal); R51 Headache; I10 Essential (primary) hypertension; F17.210 Nicotine dependence, cigarettes, uncomplicated; Z86.73 Personal history of transient ischemic attack (TIA), and cerebral infarction without residual deficits
CPT/HCPCS: 70450; 71045; 72125; 73510; 93005; 96374; J2270; Z7502; 73502